=== PATIENT | female | born 1950 | race Caucasian/White ===

== ENCOUNTER → 2016-09-19 | Outpatient (CLI) | payer BC, OTHER ==
[~2016-09-19] MED LIST: AMLO-114 PO; ATOR-24 PO; CITA20TA9 PO; GLIP5TAB11 PO; LBT/100 PO; LEVO125T72 PO; LORA-741 PO; LOSA1TAB PO; METF1000 PO; PROB1TAB16 PO; PROP20TA67 PO; SIMV40TA4 PO; VNTHFA/IN INH
[2016-09-19 13:33] LABS: ESTIMATED AVERAGE GLUCOSE 154 mg/dl; HA1C FLAG Normal (Normal)
[2016-09-19 14:17] LABS: BLOOD UREA NITROGEN 26 mg/dl (7-18); CALCIUM 9.9 mg/dl (8.5-10.1); CARBON DIOXIDE 25 mmol/L (21-32); CHLORIDE 104 mmol/L (98-107); GLUCOSE 153 mg/dl (70-99); POTASSIUM 4.5 mmol/L (3.5-5.1); SODIUM 139 mmol/L (136-145)
[2016-09-19 14:27] LABS: CHOLESTEROL 144 mg/dl (0-200); CHOLESTEROL/HDL RATIO 2.8; HDL CHOLESTEROL 52 mg/dl; TRIGLYCERIDES 132 mg/dl (0-150); VERY LOW DENSITY LIPOPROT CALC 26 mg/dl
== END | disposition home or self-care (01) ==
LOC: C.LABSPEC 12:24
PROVIDERS: ATTEND Internal Medicine
DX: Z00.00 Encounter for general adult medical examination without abnormal findings (principal); E11.9 Type 2 diabetes mellitus without complications; I10 Essential (primary) hypertension; E03.9 Hypothyroidism, unspecified

== ENCOUNTER → 2017-01-27 | Outpatient (CLI) | payer BC ==
[~2017-01-27] MED LIST changes: +LPT40 PO
[2017-01-27 14:10] LABS: ESTIMATED AVERAGE GLUCOSE 163 mg/dl; HA1C FLAG Normal (Normal)
[2017-01-27 14:21] LABS: BLOOD UREA NITROGEN 19 mg/dl (7-18); CARBON DIOXIDE 27 mmol/L (21-32); CHLORIDE 102 mmol/L (98-107); CHOLESTEROL 188 mg/dl (0-200); GLUCOSE 160 mg/dl (70-99); POTASSIUM 4.3 mmol/L (3.5-5.1); SODIUM 137 mmol/L (136-145); TRIGLYCERIDES 334 mg/dl (0-150); VERY LOW DENSITY LIPOPROT CALC 67 mg/dl
[2017-01-27 14:31] LABS: CHOLESTEROL/HDL RATIO 4.9; HDL CHOLESTEROL 38 mg/dl
== END | disposition home or self-care (01) ==
LOC: C.LABSPEC 12:25
PROVIDERS: ATTEND Internal Medicine
DX: Z00.00 Encounter for general adult medical examination without abnormal findings (principal); E11.9 Type 2 diabetes mellitus without complications; I10 Essential (primary) hypertension; E78.5 Hyperlipidemia, unspecified

== ENCOUNTER → 2017-01-30 | Outpatient (CLI) | payer BC ==
--- NOTE | 2017-02-07 06:39 | CODING QUERY MEDICAL NECESSITY ---
CQSUPPORTING DIAGNOSIS NEEDED A supporting diagnosis is required for the test/procedure performed on this patient in order for us to be reimbursed by the patient's insurance. Please provide a supporting diagnosis for the following test/procedure listed below next to the test name along with your signature. *If there is no additional diagnosis for this patient that would support the following test/procedure please document that below next to the test/procedure. Test(s)/Procedure(s) that require a supporting diagnosis: NAMITA 01/30/17 URINE CULTURE Provider Signature: Date: Thank you Abbie Neumann [facility] Information Management Once completed, please kindly fax back to [phone] For questions please call [phone]
== END | disposition home or self-care (01) ==
LOC: C.LABSPEC 17:46
PROVIDERS: ATTEND Internal Medicine
DX: N39.0 Urinary tract infection, site not specified (principal); N39.9 Disorder of urinary system, unspecified

== ENCOUNTER → 2017-05-23 | Day surgery (SDC) | payer BC ==
[2017-05-08 15:38] VITALS: Ht 160 cm; Wt 86.4 kg
[~2017-05-23] VITALS: Ht 160 cm; Wt 86.4 kg
[~2017-05-23] MED LIST changes: -ATOR-24 PO; -LPT40 PO; -PROP20TA67 PO; +PROPOFOL IV EMULSION 10 MG/ML 20 ML VIAL IV ONE
--- NOTE | 2017-05-23 13:10 | Endo History and Physical ---
History & Physical Date of Service: May 23, 2017. Chief Complaint: Screening Referring Physician: Dr. Aide Pike History of Present Illness For colonoscopy Past Surgical History Hx Cardiac Surgery: No Hx Internal Defibrillator: No Hx Pacemaker: No Hx Abdominal Surgery: Yes ( X2, UMBILICAL HERNIA REPAIR) Hx of Implantable Prosthesis: No Hx Post-Op Nausea and Vomiting: No Hx Cancer Surgery: No Hx Thoracic Surgery: No Hx Orthopedic: No Hx Urinary Tract Surgery: No Family History None Social History Smoking Status: Former Smoker Hx Substance Use: No Hx Alcohol Use: Yes (OCCASIONAL) Allergies Coded Allergies: Nifedipine (Verified Allergy, Unknown, TACHYCARDIA, 05/08/17) Oxycodone (Verified Adverse Reaction, Mild, VOMITING, 05/08/17) Current Medications Reported Home Medications Medications Dose Route/Sig Max Daily Dose Days Date Category Probiotic (Probiotic Product) 1 Tab Tab 1 Tab PO QAM 05/08/17 Reported Ativan (Lorazepam) 0.5 Mg Tab 0.5 Mg PO TID PRN 05/08/17 Reported Zocor (Simvastatin) 40 Mg Tab 40 Mg PO HS 05/08/17 Reported Normodyne (Labetalol Hcl) 100 Mg Tab 100 Mg PO BID 05/08/17 Reported Cozaar (Losartan Potassium) 25 Mg Tab 25 Mg PO QPM 03/27/15 Reported Glucotrol (Glipizide) 5 Mg Tab 0.5 Tab PO QPM 03/27/15 Reported Synthroid (Levothyroxine Sodium) 125 Mcg Tab 125 Mcg PO QAM 03/27/15 Reported Glucophage (Metformin Hcl) 1,000 Mg Tab 1,000 Mg PO QAM 03/27/15 Reported Ventolin Hfa (Albuterol) 200 Puffs/39130 Mcg Aers 1-2 Puff INH QID PRN 09/16/12 Reported Celexa (Citalopram Hydrobromide) 20 Mg Tab 20 Mg PO HS 09/04/12 Reported Norvasc (Amlodipine Besylate) 10 Mg Tab 10 Mg PO HS 06/30/07 Reported Vital Signs Weight (Kilograms): 86.36 Height (Feet): 5 Height (Inches): 3 Date Time Temp Pulse Resp B/P (MAP) Pulse Ox O2 Delivery O2 Flow Rate FiO2 05/23/17 12:44 36.9 77 16 183/97 (125) 95 Room Air Physical Exam General Appearance: WD/WN Respiratory/Chest: Respiratory effort: no dyspnea Cardiovascular: Heart Auscultation: RRR Abdomen: Inspection & Palpation: soft Assessment and Plan Fam hx polyps for colonoscopy
--- NOTE | 2017-05-23 13:42 | Discharge Instructions ---
Endoscopy Patient Instructions Date / Procedure(s) Performed May 23, 2017. Colonoscopy Allergy Information Coded Allergies: Nifedipine (Verified Allergy, Unknown, TACHYCARDIA, 05/08/17) Oxycodone (Verified Adverse Reaction, Mild, VOMITING, 05/08/17) Discharge Date / Findings May 23, 2017. polyps, diverticulosis Medication Instructions Stopped Medication(s): Patient was told to stop taking her metformin. Restart Stopped Medication(s): resume meds Reported Home Medications Medications Dose Route/Sig Max Daily Dose Days Date Category Probiotic (Probiotic Product) 1 Tab Tab 1 Tab PO QAM 05/08/17 Reported Ativan (Lorazepam) 0.5 Mg Tab 0.5 Mg PO TID PRN 05/08/17 Reported Zocor (Simvastatin) 40 Mg Tab 40 Mg PO HS 05/08/17 Reported Normodyne (Labetalol Hcl) 100 Mg Tab 100 Mg PO BID 05/08/17 Reported Cozaar (Losartan Potassium) 25 Mg Tab 25 Mg PO QPM 03/27/15 Reported Glucotrol (Glipizide) 5 Mg Tab 0.5 Tab PO QPM 03/27/15 Reported Synthroid (Levothyroxine Sodium) 125 Mcg Tab 125 Mcg PO QAM 03/27/15 Reported Glucophage (Metformin Hcl) 1,000 Mg Tab 1,000 Mg PO QAM 03/27/15 Reported Ventolin Hfa (Albuterol) 200 Puffs/20137 Mcg Aers 1-2 Puff INH QID PRN 09/16/12 Reported Celexa (Citalopram Hydrobromide) 20 Mg Tab 20 Mg PO HS 09/04/12 Reported Norvasc (Amlodipine Besylate) 10 Mg Tab 10 Mg PO HS 06/30/07 Reported Provider Instructions Activity Restrictions - No exercising or heavy lifting for 24 hours. - Do not drink alcohol the day of the procedure. - Do not drive a car or operate machinery until the day after the procedure. - Do not make any important decisions or sign important papers in 24 hours after the procedure. Following Day: - Return to full activity which may include returning to work/school. Diet Start your diet with liquids and light foods (jello, soup, juice, toast). Then eat your usual diet if not nauseated. Treatment For Common After Affects For mild abdominal pain, bloating, or excessive gas: - Rest - Eat lightly - Lie on right side Follow-Up Information Follow-up with Dr. Aide Pike as scheduled Anesthesia Information What You Should Know You have had a procedure that required some medicine to reduce anxiety and discomfort. This treatment is called moderate sedation. After receiving the treatment, you may be sleepy, but you will be able to breathe on your own. The effects of the treatment may last for several hours. Follow these instructions along with Activity/Diet recommendations noted above: * Do NOT do anything where dizziness or clumsiness would be dangerous. * Rest quietly at home today, then you can be up and about tomorrow. * Have a responsible person stay with you the rest of today. * You may have had an I.V. today. If so, you may take the dressing off later today. Recommendations Call your doctor if: * Trouble breathing * Continuous vomiting for more than 24 hours * Temperature above 101 degrees * Severe abdominal pain or bloating * Pain not relieved by pain medicine ordered * There is increased drainage or redness from any incision * A large amount of rectal bleeding greater than 2-3 tablespoons. (If you had a polyp/s removed or have hemorrhoids, a small amount of blood - from the rectum is to be expected.) * You have any unanswered questions or concerns. IN THE EVENT OF A SERIOUS EMERGENCY, GO TO THE NEAREST EMERGENCY ROOM Your discharge instructions were prepared by provider Junior Slaughter. Patient Instructions Signature Page Emma Coon Patient (or Guardian) Signature/Date: I have read and understand the instructions given to me by my caregivers. Caregiver/RN/Doctor Signature/Date: The above-named patient and/or guardian has received patient instructions on this date. + Original Patient Signature Page (only) stays with chart. Please make copy for patient.
--- NOTE | 2017-05-23 13:46 | GI REPORT ---
Procedure Date: 05/23/2017 1:21 PM Procedure: Colonoscopy Indications: Family history of colonic polyps in a first-degree relative Medicines: Propofol total dose 300 mg IV Complications: No immediate complications. Estimated Blood Loss: Estimated blood loss was minimal. Procedure: Pre-Anesthesia Assessment: - Prior to the procedure, a History and Physical was performed, and patient medications, allergies and sensitivities were reviewed. The patient's tolerance of previous anesthesia was reviewed. - The risks and benefits of the procedure and the sedation options and risks were discussed with the patient. All questions were answered and informed consent was obtained. After I obtained informed consent, the scope was passed under direct vision. Throughout the procedure, the patient's blood pressure, pulse, and oxygen saturations were monitored continuously. The scope was introduced through the anus and advanced to the cecum, identified by appendiceal orifice and ileocecal valve. The colonoscopy was performed without difficulty. The patient tolerated the procedure well. The quality of the bowel preparation was excellent. Findings: A 3 mm polyp was found in the cecum. The polyp was sessile. The polyp was removed with a cold biopsy forceps. Resection and retrieval were complete. Estimated blood loss was minimal. A 7 mm polyp was found at the hepatic flexure. The polyp was pedunculated. The polyp was removed with a hot snare. Resection and retrieval were complete. Estimated blood loss: none. A few diverticula were found in the sigmoid colon. Impression: - One 3 mm polyp in the cecum, removed with a cold biopsy forceps. Resected and retrieved. - One 7 mm polyp at the hepatic flexure, removed with a hot snare. Resected and retrieved. - Diverticulosis in the sigmoid colon. Recommendation: - Discharge patient to home (ambulatory). - Continue present medications. - Await pathology results. - Return to primary care physician PRN. Junior Slaughter M.D. Junior Slaughter MD 05/23/2017 1:45:35 PM This report has been signed electronically. Note Initiated On: 05/23/2017 1:21 PM I attest to the content of the Intraoperative Record and orders documented therein, exceptions below
--- NOTE | 2017-05-23 14:00 | Anesthesiology Progress Note ---
Anesthesia Post Op Note Date & Time May 23, 2017 at 14:00 Vital Signs Pain Intensity: 0 Vital Signs Past 12 Hours Date Time Temp Pulse Resp B/P (MAP) Pulse Ox O2 Delivery O2 Flow Rate FiO2 05/23/17 13:46 60 16 135/71 (92) 96 Room Air 05/23/17 12:44 36.9 77 16 183/97 (125) 95 Room Air Notes Mental Status: alert / awake / arousable, participated in evaluation Pt Amnestic to Procedure: Yes Nausea / Vomiting: adequately controlled Pain: adequately controlled Airway Patency, RR, SpO2: stable & adequate BP & HR: stable & adequate Hydration State: stable & adequate Anesthetic Complications: no major complications apparent
[2017-05-23 14:16] VITALS: BP 155/84; PULSE 65; O2SAT 95
== END | disposition home or self-care (01) ==
LOC: C.GI 12:09
PROVIDERS: ATTEND Internal Medicine Gastroenterology
DX: Z12.11 Encounter for screening for malignant neoplasm of colon (principal); D12.0 Benign neoplasm of cecum; D12.3 Benign neoplasm of transverse colon; J45.909 Unspecified asthma, uncomplicated; E11.9 Type 2 diabetes mellitus without complications; I10 Essential (primary) hypertension; E78.5 Hyperlipidemia, unspecified; Z87.891 Personal history of nicotine dependence; Z83.71 Family history of colonic polyps

== ENCOUNTER → 2017-05-29 | Outpatient (CLI) | payer BC ==
[~2017-05-29] MED LIST changes: -PROPOFOL IV EMULSION 10 MG/ML 20 ML VIAL IV ONE
[2017-05-29 13:29] LABS: ALT/SGPT 30 U/L (12-78); AST/SGOT 20 U/L (15-37); BLOOD UREA NITROGEN 16 mg/dl (7-18); BUN/CREATININE RATIO 14.6 (10-20); CALCIUM 9.6 mg/dl (8.5-10.1); CARBON DIOXIDE 28 mmol/L (21-32); CHLORIDE 105 mmol/L (98-107); ESTIMATED AVERAGE GLUCOSE 157 mg/dl; GLUCOSE 136 mg/dl (70-99); HA1C FLAG Normal (Normal); POTASSIUM 4.7 mmol/L (3.5-5.1); SODIUM 138 mmol/L (136-145)
[2017-05-29 13:38] LABS: ALB/GLOB RATIO 1.1 (0.9-2); ALKALINE PHOSPHATASE 96 U/L (45-117); CHOLESTEROL 139 mg/dl (0-200); CHOLESTEROL/HDL RATIO 3.6; HDL CHOLESTEROL 39 mg/dl; TRIGLYCERIDES 183 mg/dl (0-150); VERY LOW DENSITY LIPOPROT CALC 37 mg/dl
== END | disposition home or self-care (01) ==
LOC: C.LABSPEC 12:31
PROVIDERS: ATTEND Internal Medicine
DX: E11.9 Type 2 diabetes mellitus without complications (principal); E03.9 Hypothyroidism, unspecified; E78.5 Hyperlipidemia, unspecified

== ENCOUNTER → 2017-06-25 | Outpatient (CLI) | payer BC ==
--- NOTE | 2017-06-26 07:47 | MAMMOGRAPHY REPORT ---
BILATERAL DIGITAL SCREENING MAMMOGRAM TOMOSYNTHESIS WITH CAD: 06/25/2017 CLINICAL HISTORY: Routine screening. Patient has no complaints. TECHNIQUE: Breast tomosynthesis in addition to standard 2D mammography was performed. Current study was also evaluated with a Computer Aided Detection (CAD) system. COMPARISON: Comparison is made to exams dated: 06/18/2016 mammogram, 06/16/2015 mammogram, 05/23/2014 mammogram, 05/03/2013 mammogram, 04/27/2012 mammogram, and 04/24/2011 mammogram - [facility]. BREAST COMPOSITION: The tissue of both breasts is almost entirely fatty. FINDINGS: The parenchymal pattern is unchanged. No developing mass, architectural distortion or clus ter of suspicious microcalcifications is seen in either breast. IMPRESSION: ACR BI-RADS CATEGORY 2: BENIGN There is no mammographic evidence of malignancy. A 1 year screening mammogram is recommended. The pa tient will receive written notification of the results. Approximately 10% of breast cancers are not detected with mammography. A negative mammographic report should not delay biopsy if a clinically suggestive mass is present. Valorie Osei M.D. ay/:06/25/2017 07:37:48 [employer]urb[employer] Installer: Angely Perez, [facility] letter sent: Normal 1/2 BI-RADS Code: ACR BI-RADS Category 2: Benign
== END | disposition home or self-care (01) ==
LOC: C.MAMM 07:07
PROVIDERS: ATTEND Obstetrics & Gynecology
DX: Z12.31 Encounter for screening mammogram for malignant neoplasm of breast (principal)

== ENCOUNTER 2017-08-05 19:52 | Inpatient (IN) | payer BC, OTHER ==
[~2017-08-05] VITALS: Ht 160 cm; Wt 87.5 kg
[2017-08-05] MEDS ORDERED: LORAZEPAM 1 MG TAB SL STA (20:22)
[2017-08-05] MEDS ORDERED: ASPIRIN 324 MG CHEW PO STA (20:22)
[2017-08-05] MEDS ORDERED: NITROGLYCERIN 0.4 MG SL PER TAB CHARGE SL STA (20:22)
[2017-08-05 20:33] LABS: BASO % 0.1 %; BASO ABS # 0.01 K/uL (0-0.2); COMPLETE YES; HEMATOCRIT 40.1 % (37-47); IG% 0.2 %; LYMPH % 22.6 %; LYMPH ABS # 2.03 K/uL (1.2-3.4); MEAN CORPUSCULAR HEMOGLOBIN 32.5 pg (25-34); MEAN CORPUSCULAR HGB CONC 34.9 g/dl (32-36); MEAN PLATELET VOLUME 9.6 fL (7.4-10.4); MONO % 8.6 %; NEUT % 66.5 %; PLATELET COUNT 310 K/uL (130-400); RED BLOOD COUNT 4.31 M/uL (4.2-5.4); WHITE BLOOD COUNT 8.98 K/uL (4.8-10.8)
[2017-08-05 20:40] LABS: ALT/SGPT 30 U/L (12-78); BLOOD UREA NITROGEN 21 mg/dl (7-18); BUN/CREATININE RATIO 20.6 (10-20); CALCIUM 9.6 mg/dl (8.5-10.1); CARBON DIOXIDE 23 mmol/L (21-32); CHLORIDE 102 mmol/L (98-107); CREATININE 1.04 mg/dl (0.60-1.20); GLUCOSE 138 mg/dl (70-99); POTASSIUM 3.9 mmol/L (3.5-5.1); SODIUM 135 mmol/L (136-145)
[2017-08-05 20:42] LABS: PARTIAL THROMBOPLASTIN RATIO 1.1; PROTHROMBIN TIME (PATIENT) 10.7 SECONDS (9.0-12.0)
[2017-08-05 20:45] LABS: ALKALINE PHOSPHATASE 99 U/L (45-117); AST/SGOT 23 U/L (15-37)
--- NOTE | 2017-08-05 21:12 | DIAGNOSTIC IMAGING REPORT ---
CHEST ONE VIEW PORTABLE CLINICAL HISTORY: CHEST PAIN dyspnea COMPARISON STUDY: 09/04/2012 FINDINGS: The bones soft tissues and hemidiaphragms are normal. The cardiomediastinal silhouette is normal. The lungs are clear. The pulmonary vasculature is normal. IMPRESSION: Negative chest. The above report was generated using voice recognition software. It may contain grammatical, syntax or spelling errors. Electronically signed by: Silas Soares M.D. 08/05/2017 9:11 PM Dictated Date/Time: 08/05/2017 9:10 PM
[2017-08-05] MEDS ORDERED: LPT40 PO (21:15)
[2017-08-05] MEDS ORDERED: ACETAMINOPHEN 325 MG TAB PO PRN (22:45)
[2017-08-05] MEDS ORDERED: HydrALAZINE HCL 20 MG/ML VIAL IV. PRN (23:00)
[2017-08-05 23:21] LABS: MAGNESIUM 1.8 mg/dl (1.8-2.4)
[2017-08-05 23:25] VITALS: BP 185/80; PULSE 44; TEMP 37; Ht 160 cm; Wt 87.5 kg
--- NOTE | 2017-08-05 23:40 | History and Physical ---
History & Physical Date of Service Aug 05, 2017. History & Physical ADMISSION DATE : 08/05/2017 CHIEF COMPLAINT : 66-year-old female admitted with recurrent shortness of breath and evidence of second-degree AV block Mobitz 2 PRESENT ILLNESS : Patient without any prior cardiac history. She is treated for arterial hypertension, hyperlipidemia, type 2 diabetes, anxiety and depression. On Friday 2 days ago she was at [employer] and she walked from the parking lot to the store and she was feeling short of breath. The episode was short lasting. She denied any associated chest pain. No diaphoresis. No nausea no vomiting. Since then she had multiple episodes. Yesterday she became dyspneic when she climbed up steps. That was unusual for her. She does exercise regularly. This evening she was feeling short of breath. She felt that her heart rate was beating slow in the 40s. She called her daughter who is a nurse and she told her to come to the emergency room. She was brought in. She was evaluated. Multiple tests were done. Her electrocardiogram is showing evidence of second- degree AV block type II. She is on labetalol. She has been on the same medication addition to other medications to control her blood pressure for a long time. There has been no recent change in her medications. I saw the patient in the emergency room. She is currently stable. Her vitals are stable. Her heart rate is now in the 50s. She is being admitted to PCU with telemetry. PAST MEDICAL HISTORY : * Arterial hypertension. Long-standing. Requiring a multidrug regimen for control * Type 2 diabetes mellitus. On oral hypoglycemic agents * Hyperlipidemia. Treated. * Anxiety and depression. * 2 C-sections 36 and 39 years ago * Umbilical hernia repair on 2 separate occasions the last one was in 2012 * Recurrent episodes of swelling in her throat mostly with any type of infection. Has required steroid courses in the past for this problem. * Hypothyroidism. Compensated. SOCIAL HISTORY : She is . Has 2 children. She only smoked in her late teens. Early 20s. None since then. Rare alcoholic drink. 3-4 cups of coffee per day. She is retired. 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 FAMILY HISTORY : Her father at age 84. He had cardiac surgery for valve replacement and bypass and he developed complications after that with infections. Her mother is 88. Has Parkinson's disease. One sister alive and well. Children are doing well. ALLERGIES : Nifedipine. Mostly with swelling in her legs. Percocet. Mostly intolerance with vomiting CURRENT MEDICATIONS : As noted on her home medication lists REVIEW OF SYSTEMS : She denied any headache. No dizziness at this point. She did feel lightheaded prior to that. No change in her vision. No earaches or throat or neck pain. He denied any chest pain. Dyspneic intermittently since Friday. No nausea no vomiting. No problem with her bowel movements. No problem urinating. No pain in her back or extremities. PHYSICAL EXAMINATION : General: Well-developed. No distress. Resting comfortably. Recorded weight is 89.1 kg height 160 cm BMI 34.8 Skin is warm and dry. No rash. HEENT no mucosal abnormalities. Vital signs on arrival to the emergency room her blood pressure was 221/91, pulse 57, respiration 20, temperature 36.9, oxygen saturation 97% on room air. Neck is supple without lymph node or thyroid enlargement. No JVD. No Juan Ramon pulses. No bruit. Heart irregular heart sounds intermittently. No murmur rub or gallop. Lungs are clear. No wheezing no rhonchi. Abdomen is soft nontender without organomegaly or masses. Back no spinal tenderness Extremities no edema clubbing or cyanosis. No joint or muscle tenderness. Absent right dorsalis pedis pulse. Neurological examination she is alert and oriented without any deficit LABORATORY TESTS : WBC count 8980, hemoglobin 14, hematocrit 40.1, platelet count 310,000. Sodium 135, potassium 3.9, CO2 23, chloride 102, BUNs 21, creatinine 1.04, glucose 138 , calcium 9.6, magnesium 1.8, total bilirubin 0.4, AST 23, AST 30, alkaline phosphatase 99, troponin I less than 0.015, proBNP 210, total protein 8.7, albumin 4.5, TSH 6.050, free T4 1 0.1. Chest x-ray showed no acute changes Electrocardiogram showed evidence of second-degree AV block type II. She also has a new right bundle branch block compared to prior electrocardiograms. New T -wave abnormalities were also noted. ASSESSMENT : * Second-degree AV block type II * New right bundle branch block * Arterial hypertension * Hyperlipidemia * Hypothyroidism. Her TSH is elevated tonight. The last time her TSH was checked on 05/29/2017 it was 1.830 * Type 2 diabetes mellitus * Anxiety and depression PLAN : At this time her condition is stable. She is completely asymptomatic. She is admitted to PCU with telemetry. Resuscitation level I. All her laboratory tests were ordered. Cardiac isoenzymes and serial electrocardiograms were ordered. An echocardiogram was ordered. I discontinued her labetalol. Her blood pressure has been difficult to control in the past required multiple medications and will see how she does off the labetalol and decide on addition of other medications. All her other medications were continued. I would also increase her levothyroxine Cardiology consultation was requested. The plan at this time is to wait for the rest of her cardiac isoenzymes, monitor her rhythm and rate, see how she does off the labetalol, complete her workup. She will need a stress test.
--- NOTE | 2017-08-05 23:53 | EMERGENCY ROOM VISIT NOTE ---
History Report prepared by Archana: Elaine Pittman Under the Supervision of: Dr. Shantanu Krishnamurthy M.D. First contact with patient: 20:01 Chief Complaint: SHORTNESS OF BREATH Stated Complaint: SOB,HR 30S,LIGHTHEADED Nursing Triage Summary: Patient presents with c/o shortness of breath when walking upstairs, high blood pressure, and low heart rate that started on Friday. She notes that she was lightheaded with shortness of breath. States that symptoms have worsened today. Denies chest pain, palpitations, nausea, vomiting, swelling in extremities History of Present Illness The patient is a 66 year old white female with a past medical history of Diabetes and Hypertension who presents to the ED with a cc of an episode of shortness of breath beginning prior to arrival. The patient states that she is fairly active and recently lost weight. She reports that she noticed she became short of breath going up half a flight of stairs this evening. The patient reports that this is abnormal for her. She states that this feels similar to her panic attacks. Positive low heart rate, . She notes that her heart race was as low as being in the 30s two days ago. Negative chest pain, swelling in her legs, cough, fever, chills, abnormal eating/drinking habits, urinary symptoms, melena, hematochezia, diarrhea, and being short of breath when she is resting. The patient notes that she did not take her beta nell, Losartan, and Lipoxide this evening. Source of History: patient Onset: prior to arrival Position: other (global) Quality: other (global) Timing: other (episode) Modifying Factors (Worsening): movement Associated Symptoms: No fevers, No chills, No cough, No chest pain, No melena, No hematochezia, No diarrhea, No urinary symptoms Note: The patient complains of her heart rate being low. The patient denies swelling in legs, abnormal eating/drinking habits, and being short of breath at rest. Review of Systems See HPI for pertinent positives and negatives. A total of ten systems were reviewed and were otherwise negative. Past Medical & Surgical Medical Problems: (1) SECOND DEGREE AV BLOCK,HTN,DM2 Surgical Problems: (1) Hx of section Family History Diabetes mellitus Heart disease Hypertension Social History Smoking Status: Former Smoker Alcohol Use: occasionally Marital Status: Housing Status: lives with family Occupation Status: unemployed Current/Historical Medications Scheduled Amlodipine (Norvasc), 10 MG PO HS Atorvastatin (Atorvastatin Calcium), 40 MG PO DAILY Citalopram Hydrobromide (Celexa), 20 MG PO HS Glipizide (Glucotrol), 0.5 TAB PO QPM Labetalol Hcl (Normodyne), 100 MG PO BID Levothyroxine Sodium (Synthroid), 125 MCG PO QAM Losartan Potassium (Cozaar), 25 MG PO QPM Metformin Hcl (Glucophage), 1,000 MG PO QAM Probiotic Product (Probiotic), 1 TAB PO QAM Scheduled PRN Albuterol Hfa (Ventolin Hfa), 1-2 PUFF INH QID PRN for SOB/Wheezing Lorazepam (Ativan), 0.5 MG PO HS PRN for Anxiety Allergies Coded Allergies: Nifedipine (Verified Allergy, Unknown, TACHYCARDIA, 08/05/17) Oxycodone (Verified Adverse Reaction, Mild, VOMITING, 08/05/17) Physical Exam Vital Signs Date Time Temp Pulse Resp B/P (MAP) Pulse Ox O2 Delivery O2 Flow Rate FiO2 08/05/17 22:24 53 16 156/67 96 Room Air 08/05/17 21:35 47 18 140/65 95 Room Air 08/05/17 20:42 40 18 175/74 97 Room Air 08/05/17 20:37 48 08/05/17 20:06 98 Room Air 08/05/17 20:04 69 20 189/86 98 Room Air 08/05/17 19:59 96 Room Air 08/05/17 19:53 36.9 57 20 221/91 97 Room Air Physical Exam GENERAL: Awake, alert, well-appearing, NAD HENT: Normocephalic, atraumatic. EYES: Normal conjunctiva. Sclera non-icteric. NECK: Supple. No nuchal rigidity. FROM. RESPIRATORY: CTAB, no rhonchi, wheezing, crackles CARDIAC: Has 2 beats and a pause followed by another 2 beats and a pause, no MRG ABDOMEN: Soft, NTND, BS+ MSK: No chest wall TTP, no LE edema NEURO: GCS 15, CN 2-12 intact, moves all 4s on command SKIN: No rash or jaundice noted. Medical Decision & Procedures ER Provider Diagnostic Interpretation: Radiology results as stated below per my review and radiologist interpretation: CHEST ONE VIEW PORTABLE CLINICAL HISTORY: CHEST PAIN dyspnea COMPARISON STUDY: 09/04/2012 FINDINGS: The bones soft tissues and hemidiaphragms are normal. The cardiomediastinal silhouette is normal. The lungs are clear. The pulmonary vasculature is normal. IMPRESSION: Negative chest. The above report was generated using voice recognition software. It may contain grammatical, syntax or spelling errors. Electronically signed by: Silas Soares M.D. 08/05/2017 9:11 PM Dictated Date/Time: 08/05/2017 9:10 PM Laboratory Results 08/05/17 20:06 Red Blood Count 4.31, Mean Corpuscular Volume 93.0, Mean Corpuscular Hemoglobin 32.5, Mean Corpuscular Hemoglobin Concent 34.9, Mean Platelet Volume 9.6, Neutrophils (%) (Auto) 66.5, Lymphocytes (%) (Auto) 22.6, Monocytes (%) (Auto) 8.6, Eosinophils (%) (Auto) 2.0, Basophils (%) (Auto) 0.1, Neutrophils # (Auto) 5.97, Lymphocytes # (Auto) 2.03, Monocytes # (Auto) 0.77, Eosinophils # (Auto) 0.18, Basophils # (Auto) 0.01 08/05/17 20:06 Test 08/05/17 20:06 White Blood Count 8.98 K/uL (4.8-10.8) Red Blood Count 4.31 M/uL (4.2-5.4) Hemoglobin 14.0 g/dL (12.0-16.0) Hematocrit 40.1 % (37-47) Mean Corpuscular Volume 93.0 fL (80-100) Mean Corpuscular Hemoglobin 32.5 pg (25-34) Mean Corpuscular Hemoglobin Concent 34.9 g/dl (32-36) Platelet Count 310 K/uL (130-400) Mean Platelet Volume 9.6 fL (7.4-10.4) Neutrophils (%) (Auto) 66.5 % Lymphocytes (%) (Auto) 22.6 % Monocytes (%) (Auto) 8.6 % Eosinophils (%) (Auto) 2.0 % Basophils (%) (Auto) 0.1 % Neutrophils # (Auto) 5.97 K/uL (1.4-6.5) Lymphocytes # (Auto) 2.03 K/uL (1.2-3.4) Monocytes # (Auto) 0.77 K/uL (0.11-0.59) Eosinophils # (Auto) 0.18 K/uL (0-0.5) Basophils # (Auto) 0.01 K/uL (0-0.2) RDW Standard Deviation 44.8 fL (36.4-46.3) RDW Coefficient of Variation 13.1 % (11.5-14.5) Immature Granulocyte % (Auto) 0.2 % Immature Granulocyte # (Auto) 0.02 K/uL (0.00-0.02) Prothrombin Time 10.7 SECONDS (9.0-12.0) Prothromb Time International Ratio 1.0 (0.9-1.1) Activated Partial Thromboplast Time 28.3 SECONDS (21.0-31.0) Partial Thromboplastin Ratio 1.1 Anion Gap 10.0 mmol/L (3-11) Est Creatinine Clear Calc Drug Dose 57.1 ml/min Estimated GFR () 65.3 Estimated GFR (Non- 56.3 BUN/Creatinine Ratio 20.6 (10-20) Calcium Level 9.6 mg/dl (8.5-10.1) Magnesium Level 1.8 mg/dl (1.8-2.4) Total Bilirubin 0.4 mg/dl (0.2-1) Direct Bilirubin < 0.1 mg/dl (0-0.2) Aspartate Amino Transf (AST/SGOT) 23 U/L (15-37) Alanine Aminotransferase (ALT/SGPT) 30 U/L (12-78) Alkaline Phosphatase 99 U/L (45-117) Troponin I < 0.015 ng/ml (0-0.045) Pro-B-Type Natriuretic Peptide 210 pg/ml (0-900) Total Protein 8.7 gm/dl (6.4-8.2) Albumin 4.5 gm/dl (3.4-5.0) Lipase 191 U/L (73-393) Thyroid Stimulating Hormone (TSH) 6.050 uIu/ml (0.300-4.500) Free Thyroxine 1.10 ng/dl (0.80-1.60) Laboratory results reviewed by me Medications Administered Medications (Trade) Dose Ordered Sig/Tino Route Start Time Stop Time Status Last Admin Dose Admin Nitroglycerin (Nitrostat Tab) 0.4 mg NOW STAT SL 08/05/17 20:22 08/05/17 20:25 DC 08/05/17 20:42 0.4 MG Aspirin (Aspirin Chew) 324 mg NOW STAT PO 08/05/17 20:22 08/05/17 20:25 DC 08/05/17 20:43 324 MG ECG Indication: SOB/dyspnea Rate (beats per minute): 67 Rhythm: sinus rhythm Findings: PAC (bigemini ), RBBB (wide QRS), T-wave inversion (Anterior, Inferior), other (no other STS or TWI) Comparison ECG Date: March Change: QRS is new, TWI some are new and some are old, RBBB is new, bigemini is new ED Course 2014: The patient was evaluated in room C7. A complete history and physical exam was performed. 2150: Discussed the patient's case with Dr. Aide Pike. The patient will be evaluated for further treatment and disposition. Medical Decision The patient is a 66 year old white female with a past medical history of Diabetes and Hypertension who presents to the ED with a cc of an episode of shortness of breath beginning prior to arrival. Etiologies such as infections, reactive airway disease, pneumonia, pneumothorax , COPD, CHF, cardiac ischemia, pulmonary embolism, musculoskeletal, gastrointestinal, as well as others were entertained. Patient was seen and evaluated the bedside. Patient states that she's had some exertional dyspnea. This is new. She states that she get short of breath when she walks up 1 flight of stairs. Typically she has no problem walking up flights of stairs at all. Patient denies any recent prolonged car or plane travel or history of DVT or PE. Patient is not a smoker. Patient denies any chest pain. Patient does have a history of hypertension for which takes medications. She also does have a history of hypo-thyroidism which she takes Synthroid for. She has had no recent changes in his medicines. Patient states that she noticed that her heart rate was low did not take her labetalol today. Patient did have blood work that was completed along with EKG and chest x-ray. Patient was also given a nitroglycerin. Patient did take an Ativan prior as she thought maybe some anxiety played a role in her symptoms. She chest x-ray was clear. Patient had negative troponin and BNP. Patient's EKG did show a new right bundle branch block and some T-wave inversions anterior laterally. Some of these T-wave inversions were new. Patient again denied any chest pain. Patient was given a full dose aspirin as well as nitroglycerin. I did discuss case with the admitting physician who stated ability of the EKG this very well may be secondary type II AV block. The patient is currently asymptomatic. Patient was admitted for further cardiac workup. Medication Reconcilliation Current Medication List: was personally reviewed by me Blood Pressure Screening Patient's blood pressure: Elevated blood pressure Will be further monitored by hospitalist. Consults Time Called: 2106 Consulting Physician: Dr. Aide Pike Returned Call: [phone] Discussed the patient's case with Dr. Aide Pike. The patient will be evaluated for further treatment and disposition. Impression Primary Impression: Exertional dyspnea Additional Impression: RBBB Scribe Attestation The scribe's documentation has been prepared under my direction and personally reviewed by me in its entirety. I confirm that the note above accurately reflects all work, treatment, procedures, and medical decision making performed by me. Departure Information Dispostion Being Evaluated By Hospitalist Referrals Yariel Hess M.D. (PCP) Patient Instructions My [facility] Problem Qualifiers
[2017-08-06 00:39] LABS: CKMB/CK RATIO 1.5 (0-3.0)
[2017-08-06] MEDS: LORAZEPAM 0.5 MG TAB PO PRN ×2 (00:59→23:56)
[2017-08-06 04:15] VITALS: BP 158/77; PULSE 51; TEMP 36.8; O2SAT 95
[2017-08-06] MEDS: LEVOTHYROXINE 125 MCG TAB PO SCH (05:46)
[2017-08-06 06:13] LABS: BASO % 0.3 %; BASO ABS # 0.02 K/uL (0-0.2); COMPLETE YES; EOS % 1.7 %; HEMATOCRIT 39.3 % (37-47); IG% 0.3 %; LYMPH % 24.1 %; LYMPH ABS # 1.66 K/uL (1.2-3.4); MEAN CELL VOLUME 93.1 fL (80-100); MEAN CORPUSCULAR HEMOGLOBIN 31.5 pg (25-34); MEAN CORPUSCULAR HGB CONC 33.8 g/dl (32-36); MEAN PLATELET VOLUME 9.5 fL (7.4-10.4); MONO % 10.3 %; NEUT % 63.3 %; PLATELET COUNT 285 K/uL (130-400); RED BLOOD COUNT 4.22 M/uL (4.2-5.4); WHITE BLOOD COUNT 6.89 K/uL (4.8-10.8)
[2017-08-06 06:40] LABS: BLOOD UREA NITROGEN 16 mg/dl (7-18); BUN/CREATININE RATIO 17.6 (10-20); CALCIUM 9.3 mg/dl (8.5-10.1); CARBON DIOXIDE 24 mmol/L (21-32); CHLORIDE 105 mmol/L (98-107); GLUCOSE 131 mg/dl (70-99); POTASSIUM 3.8 mmol/L (3.5-5.1); SODIUM 137 mmol/L (136-145)
[2017-08-06 06:44] LABS: CKMB/CK RATIO 1.5 (0-3.0)
[2017-08-06 07:13] VITALS: BP 125/64; PULSE 44; TEMP 36.8; O2SAT 96
[2017-08-06] MEDS: CITALOPRAM 20 MG TAB PO SCH (07:33)
[2017-08-06] MEDS: ASPIRIN 81 MG ECTAB PO SCH (07:33)
[2017-08-06] MEDS: ATORVASTATIN 40 MG TAB PO SCH (07:33)
[2017-08-06] MEDS: HEPARIN SOD 5000 UNIT/0.5 ML CARP SQ SCH ×2 (07:35→19:47)
--- NOTE | 2017-08-06 10:11 | ECHOCARDIOGRAM REPORT ---
*NOTICE TO RECEIVING DEMOCRAT AGENCY This information is strictly Confidential and protected under [place] law. [place] law prohibits you from making any further disclosure of this information unless further disclosure is expressly permitted by the written consent of the person to whom it pertains or is authorized by law. A general authorization for the release of medical or other information is not sufficient for this purpose. Hospital accepts no responsibility if the information is made available to any other person, INCLUDING THE PATIENT. Interpretation Summary * Name: IVAN CLEMENT Study Date: 08/06/2017 08:45 AM BP: 125/64 mmHg * Patient Location: C.2E\S\E202\S\1 HR: 44 * : 1950 (M/d/yyyy) Gender: Female Height: 63 in * Age: 66 yrs Ethnicity: CA Weight: 196 lb * Ordering Physician: Yariel Hess * Referring Physician: Self, Referred * * BSA: 1.9 m2 * -- Conclusions -- * There is borderline concentric left ventricular hypertrophy. * Left ventricular systolic function is normal. * Grade I diastolic dysfunction, (abnormal relaxation pattern). * Borderline left atrial enlargement. * There is mild mitral regurgitation. * Right ventricular systolic pressure is elevated at 30-40mmHg. Procedure Details * A complete two-dimensional transthoracic echocardiogram was performed (2D, M-mode, Doppler and color flow Doppler). Left Ventricle * The left ventricle is normal in size. * There is borderline concentric left ventricular hypertrophy. * Ejection Fraction = 60-65%. * Left ventricular systolic function is normal. * Grade I diastolic dysfunction, (abnormal relaxation pattern). * The left ventricular wall motion is normal. Right Ventricle * The right ventricle is normal in size and function. * The right ventricular systolic function is normal as assessed by tricuspid annular plane systolic excursion (TAPSE) (normal >1.5 cm). Atria * Borderline left atrial enlargement. * Right atrial size is normal. Mitral Valve * The mitral valve is grossly normal. * There is mild mitral regurgitation. Tricuspid Valve * The tricuspid valve is not well visualized, but is grossly normal. * There is trace tricuspid regurgitation. * Right ventricular systolic pressure is elevated at 30-40mmHg. Aortic Valve * The aortic valve is normal in structure and function. * No hemodynamically significant valvular aortic stenosis. * There is no significant aortic regurgitation. Great Vessels * The aortic root is normal size. Pericardium/Pleural * There is no pericardial effusion. MMode 2D Measurements and Calculations IVSd 1.2 cm IVSs 1.7 cm LVIDd 4.0 cm LVIDs 2.5 cm LVPWd 1.4 cm LVPWs 1.7 cm IVS/LVPW 0.88 FS 39.3 % EDV(Teich) 71.7 ml ESV(Teich) 21.3 ml EF(Teich) 70.3 % EDV(cubed) 65.9 ml ESV(cubed) 14.7 ml EF(cubed) 77.7 % % IVS thick 44.8 % % LVPW thick 25.4 % LV mass(C)d 185.5 grams LV mass(C)dI 96.8 grams/m\S\2 LV mass(C)s 159.3 grams LV mass(C)sI 83.1 grams/m\S\2 SV(Teich) 50.4 ml SI(Teich) 26.3 ml/m\S\2 SV(cubed) 51.2 ml SI(cubed) 26.7 ml/m\S\2 Ao root diam 3.1 cm Ao root area 7.6 cm\S\2 LA dimension 4.0 cm LA/Ao 1.3 LVAd ap4 24.6 cm\S\2 LVLd ap4 8.0 cm EDV(MOD-sp4) 63.7 ml EDV(sp4-el) 64.3 ml LVAs ap4 12.8 cm\S\2 LVLs ap4 5.7 cm ESV(MOD-sp4) 25.4 ml ESV(sp4-el) 24.5 ml EF(MOD-sp4) 60.1 % EF(sp4-el) 61.9 % LVAd ap2 23.9 cm\S\2 LVLd ap2 7.8 cm EDV(MOD-sp2) 63.2 ml EDV(sp2-el) 61.9 ml LVAs ap2 13.5 cm\S\2 LVLs ap2 6.6 cm ESV(MOD-sp2) 23.8 ml ESV(sp2-el) 23.3 ml EF(MOD-sp2) 62.4 % EF(sp2-el) 62.4 % LVLd %diff -2.47 % EDV(MOD-bp) 63.7 ml LVLs %diff 14.2 % ESV(MOD-bp) 26.5 ml EF(MOD-bp) 58.4 % SV(MOD-sp4) 38.3 ml SI(MOD-sp4) 20.0 ml/m\S\2 SV(MOD-sp2) 39.5 ml SI(MOD-sp2) 20.6 ml/m\S\2 SV(MOD-bp) 37.2 ml SI(MOD-bp) 19.4 ml/m\S\2 SV(sp4-el) 39.8 ml SI(sp4-el) 20.7 ml/m\S\2 SV(sp2-el) 38.6 ml SI(sp2-el) 20.1 ml/m\S\2 Doppler Measurements and Calculations MV E max dory 107.3 cm/sec MV A max dory 113.2 cm/sec MV E/A 0.95 MV dec time 0.19 sec Ao V2 max 135.9 cm/sec Ao max PG 7.4 mmHg Ao max PG (full) 1.3 mmHg LV V1 max PG 6.1 mmHg LV V1 max 123.6 cm/sec TR max dory 310.8 cm/sec
[2017-08-06 10:17] LABS: LYME DISEASE AB IGG NEG (NEG)
[2017-08-06 10:18] LABS: LYME DISEASE AB IGM NEG (NEG)
[2017-08-06 10:56] LABS: ACT87 HEP C IGG SCREEN** NEG (NEG)
[2017-08-06 12:26] VITALS: BP_SYST 167; BP_SYST 180; BP_DIAS 74; BP_DIAS 88; PULSE 41; TEMP 36.9; O2SAT 96
--- NOTE | 2017-08-06 13:26 | Cardiology Consultation ---
Cardiology Consultation Date of Consultation: Aug 06, 2017. Requesting Physician: Maddie Reason for Consultation: Heart block History of Present Illness The patient is a 66-year-old woman without a significant cardiac history who recently began experiencing symptoms of exertional dyspnea. Generally speaking , she is a very active individual who was accustomed to routine exercise. She recently suffered a knee injury but prior to that was performing regular aerobic activity without limitation. She has not report significant dyspnea on exertion. Over the past couple of days however she has noticed some dyspnea with even minimal activity. Over the weekend while walking into a department store she was dyspneic. Yesterday while at ascending some stair she was dyspneic. Her daughter is a nurse and measured her pulse which was low in the 40s. Based on these concerns she presented to [facility] for evaluation was discovered to have bradycardia in association with heart block. Currently, the patient is feeling well. She denies any dizziness or lightheadedness during these past few days. She has not suffered a syncopal episode. She denies any exertional chest symptoms such as chest pressure or chest pain. She has not report any recent illnesses involving fevers or chills. She denies any significant joint pains or swollen joints. She cannot recall any rashes recently. 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 Remote history of tobacco abuse. Currently nonsmoker. Review of Systems Per HPI. She is not aware of any recent tick bites. She does have a dog with Lyme disease. All Other Systems: Reviewed and Negative Allergies Coded Allergies: Nifedipine (Verified Allergy, Unknown, TACHYCARDIA, 08/05/17) Oxycodone (Verified Adverse Reaction, Mild, VOMITING, 08/05/17) Medications Current Inpatient Medications Medications (Trade) Dose Ordered Sig/Tino Route Start Time Stop Time Status Last Admin Dose Admin Heparin Sodium (Porcine) (Heparin Sq 5000 Unit/0.5ml) 5,000 unit Q12 SQ 08/06/17 09:00 09/05/17 08:59 08/06/17 07:35 5,000 UNIT Acetaminophen (Tylenol Tab) 500 mg Q4H PRN PO 08/05/17 22:45 09/04/17 22:44 Aspirin (Ecotrin Tab) 81 mg QAM PO 08/06/17 09:00 09/05/17 08:59 08/06/17 07:33 81 MG Amlodipine Besylate (Norvasc Tab) 10 mg HS PO 08/06/17 21:00 09/05/17 20:59 Atorvastatin Calcium (Lipitor Tab) 40 mg DAILY PO 08/06/17 09:00 09/05/17 08:59 08/06/17 07:33 40 MG Citalopram Hydrobromide (celeXA TAB) 20 mg HS PO 08/06/17 21:00 09/05/17 20:59 08/06/17 07:33 20 MG Levothyroxine Sodium (Synthroid Tab) 125 mcg DAILYBB PO 08/06/17 06:00 09/05/17 05:59 08/06/17 05:46 125 MCG Losartan Potassium (coZAAR TAB) 25 mg QPM PO 08/06/17 21:00 09/05/17 20:59 Lorazepam (Ativan Tab) 0.5 mg Q6H PRN PO 08/05/17 23:00 09/04/17 22:59 08/06/17 00:59 0.5 MG Hydralazine HCl (HydrALAZINE INJ) 10 mg Q6H PRN IV. 08/05/17 23:00 09/04/17 22:59 08/06/17 00:23 10 MG Physical Exam Vital Signs Past 12 Hours Date Time Temp Pulse Resp B/P (MAP) Pulse Ox O2 Delivery O2 Flow Rate FiO2 08/06/17 12:26 36.9 41 16 180/88 (118) 96 Room Air 167/74 (105) 08/06/17 12:00 Room Air 08/06/17 08:00 Room Air 08/06/17 07:13 36.8 44 12 125/64 (84) 96 Room Air 08/06/17 04:15 36.8 51 21 158/77 (104) 95 Room Air 08/06/17 04:00 Room Air She is alert and oriented x3. Mood affect appear normal. She answered all questions appropriately. HEENT: Sclerae are anicteric. Pupils are equal and reactive to light and accommodation. Extraocular movements were intact. Neuro: Cranial nerves intact Neck: Examination of the submandibular region did not reveal any significant lymphadenopathy. Carotids are palpable bilaterally and free of bruits on auscultation. There was no evidence of jugular venous distention. The thyroid was not enlarged. Lungs: Lungs are clear to auscultation bilaterally. There are no rales wheezes or rhonchi. She has normal respiratory effort without use of accessory muscles. There is normal pulmonary excursion. Cardiac: The rhythm was somewhat irregular. S1 and S2 were normal. There are no murmurs on examination. The PMI was not markedly displaced on palpation. Abdomen: The abdomen was soft and nontender. Extremities: Patient has bilateral radial pulses that are equal in intensity. There is no evidence cyanosis or clubbing. There was no evidence of significant peripheral edema bilaterally. Skin: There are no rashes noted on examination today. Data Laboratory Results: Last 24 Hours Test 08/05/17 20:06 08/05/17 23:57 08/06/17 00:07 08/06/17 05:54 White Blood Count 8.98 K/uL 6.89 K/uL Red Blood Count 4.31 M/uL 4.22 M/uL Hemoglobin 14.0 g/dL 13.3 g/dL Hematocrit 40.1 % 39.3 % Mean Corpuscular Volume 93.0 fL 93.1 fL Mean Corpuscular Hemoglobin 32.5 pg 31.5 pg Mean Corpuscular Hemoglobin Concent 34.9 g/dl 33.8 g/dl Platelet Count 310 K/uL 285 K/uL Mean Platelet Volume 9.6 fL 9.5 fL Neutrophils (%) (Auto) 66.5 % 63.3 % Lymphocytes (%) (Auto) 22.6 % 24.1 % Monocytes (%) (Auto) 8.6 % 10.3 % Eosinophils (%) (Auto) 2.0 % 1.7 % Basophils (%) (Auto) 0.1 % 0.3 % Neutrophils # (Auto) 5.97 K/uL 4.36 K/uL Lymphocytes # (Auto) 2.03 K/uL 1.66 K/uL Monocytes # (Auto) 0.77 K/uL 0.71 K/uL Eosinophils # (Auto) 0.18 K/uL 0.12 K/uL Basophils # (Auto) 0.01 K/uL 0.02 K/uL RDW Standard Deviation 44.8 fL 44.4 fL RDW Coefficient of Variation 13.1 % 13.1 % Immature Granulocyte % (Auto) 0.2 % 0.3 % Immature Granulocyte # (Auto) 0.02 K/uL 0.02 K/uL Prothrombin Time 10.7 SECONDS Prothromb Time International Ratio 1.0 Activated Partial Thromboplast Time 28.3 SECONDS Partial Thromboplastin Ratio 1.1 Sodium Level 135 mmol/L 137 mmol/L Potassium Level 3.9 mmol/L 3.8 mmol/L Chloride Level 102 mmol/L 105 mmol/L Carbon Dioxide Level 23 mmol/L 24 mmol/L Anion Gap 10.0 mmol/L 8.0 mmol/L Blood Urea Nitrogen 21 mg/dl 16 mg/dl Creatinine 1.04 mg/dl 0.90 mg/dl Est Creatinine Clear Calc Drug Dose 57.1 ml/min 65.1 ml/min Estimated GFR () 65.3 77.8 Estimated GFR (Non- 56.3 67.1 BUN/Creatinine Ratio 20.6 17.6 Random Glucose 138 mg/dl 131 mg/dl Calcium Level 9.6 mg/dl 9.3 mg/dl Magnesium Level 1.8 mg/dl Total Bilirubin 0.4 mg/dl Direct Bilirubin < 0.1 mg/dl Aspartate Amino Transf (AST/SGOT) 23 U/L Alanine Aminotransferase (ALT/SGPT) 30 U/L Alkaline Phosphatase 99 U/L Troponin I < 0.015 ng/ml < 0.015 ng/ml < 0.015 ng/ml Pro-B-Type Natriuretic Peptide 210 pg/ml Total Protein 8.7 gm/dl Albumin 4.5 gm/dl Lipase 191 U/L Thyroid Stimulating Hormone (TSH) 6.050 uIu/ml Free Thyroxine 1.10 ng/dl Bedside Glucose 140 mg/dl Total Creatine Kinase 145 U/L 143 U/L Creatine Kinase MB 2.2 ng/ml 2.1 ng/ml Creatine Kinase MB Ratio 1.5 1.5 Lyme Disease IgG Antibody NEG Lyme Disease IgM Antibody NEG Hepatitis C Antibody Screen NEG Hepatitis C Antibody NEG Test 08/06/17 06:21 08/06/17 11:03 Bedside Glucose 130 mg/dl 131 mg/dl Imaging: Chest x-ray was obtained at the time of admission which was normal EKG: Normal sinus rhythm with right bundle branch block and evidence of Mobitz 2 conduction Telemetry reviewed: 2-1 conduction and Mobitz 2 conduction Echocardiogram was obtained today which revealed preserved LV systolic function. Mild mitral regurgitation. No other significant valvular abnormalities. Assessment & Plan 1. Heart block: Patient presented with evidence of Mobitz 2 conduction. This is in the setting of a right bundle branch block and possibly left anterior fascicular block. She was on a beta-nell which may have exacerbated this condition. Her Lyme titers are negative. Her symptoms are likely related to poor chronotropic competence in the setting of infra-Hisian block. Her echocardiogram is normal there is no evidence of cardiomyopathy. I suspect the conduction were seeing simply progression of longstanding conduction disease. However, seems reasonable in the absence of severe symptoms to monitor her for at least 24 hours in order to see if her conduction improves without labetalol. If she continues to have evidence of heart block tomorrow morning I would advocate consideration of pacemaker implantation. 2. Hypertension: Patient does have some very mild hypertrophy on echocardiogram suggesting longstanding hypertension. She reportedly has been difficult to control in the past. With discontinuation of her labetalol additional agents may need to be entertained. If he does in fact need a pacemaker labetalol could be resumed afterwards.
[2017-08-06 15:03] VITALS: BP 151/108; PULSE 42; TEMP 36.6; O2SAT 96
[2017-08-06 15:10] VITALS: BP 164/86
--- NOTE | 2017-08-06 17:51 | Progress Note ---
Progress Note Date of Service Aug 06, 2017. Progress Note 66-year-old female admitted with the emergency room with a new onset of second degree AV block Mobitz 2 and a new right bundle branch block. She was also thought to have a left anterior hemiblock. Patient was symptomatic. She was complaining of shortness of breath. Dizziness and lightheadedness. Patient was admitted. Cardiac isoenzymes have been negative for any evidence of myocardial injury. She was on labetalol. That was discontinued. Agent remains in a second-degree AV block even throughout the day and again this afternoon. This has been continuous. She was seen in cardiology consultation by Dr. Hair. He recommended permanent pacing. Tentatively scheduled for tomorrow. She is quite anxious and nervous. She denied any headache. Does complain of intermittent dizziness and lightheadedness. No earaches or throat or neck pain. No chest pain pressure or tightness. She does feel dyspneic especially with trying to walk. No nausea no vomiting. No problem with her bowel movements. She is tolerating her diet. She try to ambulate today that she was getting weak and feeling short of breath whenever she did that. EXAMINATION : GENERAL: Well-developed. No distress. VITAL SIGNS: Blood pressure 125/64 pulse 44 temperature 36.8 respiration 12 oxygen saturation 96% on room air SKIN: Warm and dry. No rash. HEENT: Completely unremarkable. NECK: No adenopathy no thyromegaly. No JVD. HEART: Irregular heart sounds. LUNGS: Clear. ABDOMEN: Soft nontender. BACK: No spinal tenderness. EXTREMITIES: No edema clubbing or cyanosis. LABORATORY TESTS : WBC count 6890, hemoglobin 13.3, hematocrit 39.3, platelet count 285,000. Sodium 137, potassium 3.8, chloride 105, CO2 24, BUN 16, creatinine 0.9, glucose 131, calcium 9.3, cardiac isoenzymes were all negative for any evidence of myocardial injury. Echocardiogram was normal. No evidence of any cardiomyopathy. Electrocardiogram continued to show second-degree AV block Mobitz 2 and right bundle branch block. Lyme antibodies were negative ASSESSMENT : * Second-degree AV block Mobitz II. New-onset. * New right bundle branch block * Symptomatic heart block with dizziness and lightheadedness and shortness of breath * Type 2 diabetes mellitus * Arterial hypertension * Hypothyroidism PLAN : * Continuing the same medications. * We will continue keeping her off the labetalol onto the pacemaker is placed then. Restarted safely. * Continue ambulation as much as possible * Had a call today from Dr. Montgomery he is with [facility] [employer]. The issue was a whether patient should be under observation status or admission. I gave him all the information as far as patient has a new heart block. Symptomatic. Pacemaker recommended by cardiology. Anticipating to do that tomorrow. That will require her to stay in the hospital for an additional day after the pacemaker is displaced. He explained that if patient was requiring IV medications such as atropine or epinephrine or other medication that would justify the admission. I explained to him that there is no way the patient can go home with a new onset of heart block and the fact that she needs a pacemaker. He stated that he will approve her for observation status and the hospital can appeal the decision depending on her stay. I'm not really sure up to this point with the issue is. The patient who presents with a new heart block with a new right bundle branch block and also suspected left anterior hemiblock there should be no question about the need to keep her under admission status.
[2017-08-06 18:58] VITALS: BP 175/89; PULSE 44; TEMP 36.9; O2SAT 95
[2017-08-06] MEDS: AMLODIPINE BESYLATE 5 MG TAB PO SCH (19:44)
[2017-08-06] MEDS: LOSARTAN POTASSIUM 25 MG TAB PO SCH (19:45)
[2017-08-07] VITALS (16 sets, daily range): BP systolic 130–174; BP diastolic 65–101; PULSE 42–97; TEMP 36.7–37.7; O2SAT 92–95
[2017-08-07] MEDS ORDERED: CEFAZOLIN SOD 2000MG/10 ML IV PUSH IV SCH (06:00)
[2017-08-07] MEDS: LEVOTHYROXINE 125 MCG TAB PO SCH (06:03)
[2017-08-07 06:30] LABS: BASO % 0.3 %; BASO ABS # 0.02 K/uL (0-0.2); COMPLETE YES; EOS % 2.1 %; HEMATOCRIT 41.2 % (37-47); IG% 0.3 %; LYMPH ABS # 1.75 K/uL (1.2-3.4); MEAN CELL VOLUME 93.2 fL (80-100); MEAN CORPUSCULAR HEMOGLOBIN 31.4 pg (25-34); MEAN CORPUSCULAR HGB CONC 33.7 g/dl (32-36); MEAN PLATELET VOLUME 9.7 fL (7.4-10.4); MONO % 12.6 %; NEUT % 60.7 %; PLATELET COUNT 285 K/uL (130-400); RED BLOOD COUNT 4.42 M/uL (4.2-5.4); WHITE BLOOD COUNT 7.29 K/uL (4.8-10.8)
[2017-08-07 07:03] LABS: BUN/CREATININE RATIO 18.6 (10-20); CALCIUM 9.5 mg/dl (8.5-10.1); CREATININE 1.11 mg/dl (0.60-1.20)
[2017-08-07] MEDS ORDERED: BUPIVACAINE 0.5 % 5 MG/1 ML MPF 30ML VIAL ONE (08:40)
[2017-08-07] MEDS ORDERED: BACITRACIN 50000 UNIT VIAL ONE (08:41)
[2017-08-07] MEDS ORDERED: ACETAMINOPHEN 500 MG TAB PO PRN (09:15)
[2017-08-07] MEDS ORDERED: CEFAZOLIN SOD 1 GM VIAL ONE (09:26)
[2017-08-07] MEDS ORDERED: FENTANYL CITRATE INJ 50 MCG/1 ML 2 ML VIAL ONE (09:26)
[2017-08-07] MEDS ORDERED: MIDAZOLAM HCL 5 MG/ML 1 ML VIAL ONE (09:26)
--- NOTE | 2017-08-07 09:29 | Procedure Note ---
Pre-Mod Sedation Assessment General Date of Moderate Sedation: Aug 07, 2017. Vital Signs: Vital Signs Past 12 Hours Date Time Temp Pulse Resp B/P (MAP) Pulse Ox O2 Delivery O2 Flow Rate FiO2 08/07/17 08:02 36.7 45 16 144/65 (91) 94 Room Air 08/07/17 08:00 Room Air 08/07/17 06:21 36.7 45 16 144/65 94 Room Air 08/07/17 04:00 95 Room Air 08/07/17 03:23 36.8 47 18 148/70 (96) 95 Room Air 08/07/17 00:22 36.8 42 16 174/69 (104) 95 Room Air 08/07/17 00:01 95 Room Air Review Cardiovascular: + irregularly irregular Airway Class: III Pre-Sedation Airway Assessment Oral Cavity: Capped Teeth Able to Visualize Vocal Cords: No Short Thick Neck: Yes Hx of Sleep Apnea: Yes Smoking Status: Former Smoker Mallampati Classification: Class III ASA Classification: Class III Procedure Planning Contraindications-for Mod Sed: None Yes Notes The planned sedation has been discussed with the patient and consent obtained. I have identified the patient, determined the appropriateness of sedation and have assessed the patient immediately prior to the procedure. All medicine(s) and interventions are by my order.
[2017-08-07] MEDS ORDERED: ACETAMINOPHEN 325 MG TAB PO PRN (10:45)
[2017-08-07] MEDS: CITALOPRAM 20 MG TAB PO SCH (10:51)
[2017-08-07] MEDS: ASPIRIN 81 MG ECTAB PO SCH (10:51)
[2017-08-07] MEDS: ATORVASTATIN 40 MG TAB PO SCH (10:51)
[2017-08-07] MEDS: HEPARIN SOD 5000 UNIT/0.5 ML CARP SQ SCH ×2 (10:52→20:52)
--- NOTE | 2017-08-07 12:11 | [facility] Operative Report ---
Operative Report Date of Service Aug 07, 2017. Operative Report Procedure performed: Implantation of dual-chamber permanent pacemaker Staff chief wheelage clerk: Tono Hair MD Indication: The patient is 66-year-old woman without a known history of cardiac disease who presented with exertional intolerance. She is noted to have evidence of Mobitz 2 heart block. Based on her symptoms and conduction disease she was felt to be a good candidate for permanent pacemaker due to symptomatic non reversible AV node dysfunction. A dual-chamber device was selected as the patient is currently in sinus rhythm which to maintain AV synchrony. Procedure in detail: The patient was informed of the risks benefits and alternatives to the intended procedure and she wished to proceed. She was taken to the electrophysiology suite in a fasting state. A preoperative antibiotic had been administered. The patient was monitored electrocardiographically throughout today's procedure and conscious sedation was administered per protocol. The left upper pectoral area is prepped and draped in usual sterile fashion. This area was anesthetized using subcutaneous menstruation of a xylocaine solution. An incision was made at this site and carried down to the prepectoralis fascia using sharp dissection. Electrocautery was also employed for dissection as well as for hemostasis. A device pocket was fashioned tissues above the pectoralis muscle. Subsequent to this maneuver the left axillary vein was accessed using modified Seldinger technique. Sheaths were placed over guidewires at this site and used to facilitate passage of the pacing leads to the respective chambers under fluoroscopic guidance. This included right atrial and right ventricular leads. Adequate sensing and threshold parameters were obtained prior to Active fixation of the leads to the endocardial surface. The proximal portion leads were then sutured the prepectoral fascia using nonabsorbable suture. The device pocket was irrigated with antibiotic solution. The leads were then attached to the device. The device and leads were then placed in the pocket and pocket was closed in 3 layers of absorbable suture. Steri-Strips and sterile dressing were applied. The device was tested noninvasively prior to conclusion the procedure. The patient tolerated procedure well there no immediate complications. Equipment used: New pulse generator: [employer]. Model number: [id number]. Serial number [id number] Right atrial lead: [employer]onic. Model number: 4076. Serial number [id number] Right ventricular lead: [employer] Manager Medtronic. Model number: 4076. Serial number [id number] Measured data: Right atrial lead: P-waves measured 5.6 mV. Pacing threshold was 0.4 volts at 0.4 milliseconds with a pacing impedance of 533 Ohms Right ventricular lead: R-waves measured 5.6 mV pacing threshold was 0.4 volts at 0.4 milliseconds with a pacing impedance of 741 Ohms Impression: Successful implantation of dual-chamber permanent pacemaker I attest to the content of the Intraoperative Record and any orders documented therein. Any exceptions are noted below.
[2017-08-07] MEDS ORDERED: TRAMADOL HCL 50 MG TAB PO PRN (15:30)
[2017-08-07] MEDS ORDERED: TRAMADOL HCL 50 MG TAB PO ONE (15:30)
[2017-08-07] MEDS ORDERED: NURSING VERBAL MED ORDER ONE (15:30)
--- NOTE | 2017-08-07 16:10 | Cardiology Follow-Up ---
Subjective Date of Service: Aug 07, 2017. Pt evaluation today including: conversation w/ patient, conversation w/ family , physical exam, lab review History of Present Illness I saw the patient earlier this morning as well as after her procedure. I had her walk around the santos this morning in order to monitor her symptoms and conduction. She did have notable dyspnea and fatigue with ambulation. Subsequent to her device implantation she claims to be feeling well. She has minimal discomfort at the implant site. Social History Smoking Status: Former Smoker History of Alcohol Use: Yes (rarely) Review of Systems Per HPI. She is not aware of any recent tick bites. She does have a dog with Lyme disease. Objective Vital Signs Past 12 Hours Date Time Temp Pulse Resp B/P (MAP) Pulse Ox O2 Delivery O2 Flow Rate FiO2 08/07/17 15:47 165/99 (121) 08/07/17 14:59 36.7 81 18 172/101 (124) 93 Room Air 08/07/17 13:23 37.7 77 18 155/90 (111) 94 Room Air 08/07/17 12:30 37.0 85 16 142/84 (103) 92 Room Air 08/07/17 12:00 Room Air 08/07/17 11:56 37.2 97 20 141/85 (103) 94 Room Air 08/07/17 11:27 37.2 79 16 134/94 (107) 94 Room Air 08/07/17 11:02 76 18 161/83 (109) 93 Room Air 08/07/17 10:45 83 18 163/99 (120) 92 Room Air 08/07/17 10:35 80 16 142/90 (107) 98 Room Air 08/07/17 10:25 80 16 158/90 (112) 98 Room Air 08/07/17 08:02 36.7 45 16 144/65 (91) 94 Room Air 08/07/17 08:00 Room Air 08/07/17 06:21 36.7 45 16 144/65 94 Room Air Last Recorded Weight-Kilograms: 87.900 Intake & Output 8-Hour Column 08/07/17 08/07/17 08/08/17 15:59 23:59 07:59 Intake Total 220 ml Output Total 250 ml Balance -30 ml 24-Hour Column 08/08/17 07:59 Intake Total 220 ml Output Total 250 ml Balance -30 ml Physical Exam She is alert and oriented x3. Mood affect appear normal. She answered all questions appropriately. HEENT: Sclerae are anicteric. Pupils are equal and reactive to light and accommodation. Extraocular movements were intact. Neuro: Cranial nerves intact Device implantation site is without hematoma or drainage. No significant tenderness on palpation Data Laboratory Results: Last 24 Hours Test 08/06/17 20:14 08/07/17 05:46 08/07/17 07:18 08/07/17 10:54 Bedside Glucose 107 mg/dl 152 mg/dl 126 mg/dl White Blood Count 7.29 K/uL Red Blood Count 4.42 M/uL Hemoglobin 13.9 g/dL Hematocrit 41.2 % Mean Corpuscular Volume 93.2 fL Mean Corpuscular Hemoglobin 31.4 pg Mean Corpuscular Hemoglobin Concent 33.7 g/dl Platelet Count 285 K/uL Mean Platelet Volume 9.7 fL Neutrophils (%) (Auto) 60.7 % Lymphocytes (%) (Auto) 24.0 % Monocytes (%) (Auto) 12.6 % Eosinophils (%) (Auto) 2.1 % Basophils (%) (Auto) 0.3 % Neutrophils # (Auto) 4.43 K/uL Lymphocytes # (Auto) 1.75 K/uL Monocytes # (Auto) 0.92 K/uL Eosinophils # (Auto) 0.15 K/uL Basophils # (Auto) 0.02 K/uL RDW Standard Deviation 44.2 fL RDW Coefficient of Variation 13.0 % Immature Granulocyte % (Auto) 0.3 % Immature Granulocyte # (Auto) 0.02 K/uL Sodium Level 137 mmol/L Potassium Level 4.0 mmol/L Chloride Level 102 mmol/L Carbon Dioxide Level 26 mmol/L Anion Gap 9.0 mmol/L Blood Urea Nitrogen 21 mg/dl Creatinine 1.11 mg/dl Est Creatinine Clear Calc Drug Dose 53.1 ml/min Estimated GFR () 60.4 Estimated GFR (Non- 52.1 BUN/Creatinine Ratio 18.6 Random Glucose 147 mg/dl Calcium Level 9.5 mg/dl Imaging: EKG: Telemetry reviewed: Assessment and Plan 1. Heart block: Evaluation of her monitor recordings earlier this morning did reveal evidence of Mobitz 1 conduction. However, with ambulation around the santos she had notable dyspnea and third-degree heart block. 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 Despite holding her beta-nell for well over 24 hours we see no improvement in her conduction. I am quite confident that she has significant baseline conduction disease requiring permanent pacing. I did discuss the risks benefits and alternatives of the procedure with the patient and her family. At this point will plan on proceeding with a dual-chamber implant. 2. Hypertension: Somewhat elevated blood pressures today. After implantation of her device reinstitution of her standard medical therapy could be entertained.
[2017-08-07] MEDS ORDERED: IBUPROFEN 800 MG TAB PO PRN (16:30)
--- NOTE | 2017-08-07 17:42 | Progress Note ---
Progress Note Date of Service Aug 07, 2017. Progress Note 66-year-old female admitted with second-degree AV block Mobitz 2. She was complaining of dizziness and lightheadedness and dyspnea. She was on labetalol prior to her admission. The medication was discontinued. She remained in a second-degree AV block. She was seen in cardiology consultation by Dr. Hair. The recommendation was to proceed with a permanent pacemaker. Because of the nonresolution of the second-degree AV block with discontinuation of labetalol he proceeded with the placement of a dual-chamber pacemaker today. The procedure was well-tolerated. Her medical problems also include arterial hypertension, type 2 diabetes mellitus, hypothyroidism, hyperlipidemia. EXAMINATION : GENERAL: Well-developed. No distress. She is complaining of pain at the pacemaker insertion site. VITAL SIGNS: Blood pressure 172/101, pulse 81, respiration 18, sugar 36.7, oxygen saturation 93% on room air SKIN: Warm and dry. No rash. HEENT: No mucosal abnormalities. NECK: Supple. Nontender. No JVD. HEART: Regular heart sounds. Monitor is showing 100% paced rhythm. LUNGS: Clear. ABDOMEN: Soft nontender. BACK: No spinal tenderness. EXTREMITIES: No edema clubbing or cyanosis. LABORATORY TESTS : Sodium 137, potassium 4.0, chloride 102, CO2 26, BUNs 21, creatinine 1.11, glucose 147, calcium 9.5. WBC count 7290, hemoglobin 13.9, hematocrit 41.2, platelet count 285,000. ASSESSMENT : * Second-degree AV block Mobitz 2 * Arterial hypertension * Type 2 diabetes mellitus * Hyperlipidemia * Hypothyroidism * Status post dual-chamber pacemaker implant today PLAN: * Continuing her medications * I will restart her labetalol * Ultram ordered for pain control at the surgical site * If she stable anticipating discharge tomorrow. * If in the future any of her symptoms persist especially the exertional dyspnea then she will undergo stress testing
[2017-08-07] MEDS: CEFAZOLIN IV 1,000 MG in SYRINGE 0 ML IV SCH (17:49)
[2017-08-07] MEDS: AMLODIPINE BESYLATE 5 MG TAB PO SCH (20:47)
[2017-08-07] MEDS: LOSARTAN POTASSIUM 25 MG TAB PO SCH (20:47)
[2017-08-08] VITALS (7 sets, daily range): BP systolic 132–177; BP diastolic 85–105; PULSE 70–82; TEMP 36.5–36.9; O2SAT 95–96
[2017-08-08] MEDS: CEFAZOLIN IV 1,000 MG in SYRINGE 0 ML IV SCH (01:44)
[2017-08-08] MEDS: LEVOTHYROXINE 125 MCG TAB PO SCH (05:59)
[2017-08-08 06:12] LABS: BASO % 0.1 %; BASO ABS # 0.01 K/uL (0-0.2); COMPLETE YES; EOS % 1.7 %; HEMATOCRIT 39.3 % (37-47); IG% 0.2 %; LYMPH % 19.9 %; LYMPH ABS # 1.64 K/uL (1.2-3.4); MEAN CELL VOLUME 92.5 fL (80-100); MEAN CORPUSCULAR HEMOGLOBIN 31.1 pg (25-34); MEAN CORPUSCULAR HGB CONC 33.6 g/dl (32-36); MEAN PLATELET VOLUME 9.6 fL (7.4-10.4); MONO % 13.2 %; NEUT % 64.9 %; PLATELET COUNT 258 K/uL (130-400); RED BLOOD COUNT 4.25 M/uL (4.2-5.4); WHITE BLOOD COUNT 8.23 K/uL (4.8-10.8)
[2017-08-08 06:47] LABS: BUN/CREATININE RATIO 24.1 (10-20); CALCIUM 9.2 mg/dl (8.5-10.1); CREATININE 1.06 mg/dl (0.60-1.20)
--- NOTE | 2017-08-08 07:05 | DIAGNOSTIC IMAGING REPORT ---
CHEST 2 VIEWS ROUTINE CLINICAL HISTORY: EXACT TIME ORDERED Evaluate for pneumothorax and lead placement pacemaker placement COMPARISON STUDY: 08/05/2017 FINDINGS: Placement of a permanent bipolar cardiac pacemaker. Leads in good position. No evidence for pneumothorax. The lungs are clear. IMPRESSION: Bipolar cardiac pacemaker with leads in good position. No evidence for pneumothorax. The above report was generated using voice recognition software. It may contain grammatical, syntax or spelling errors. Electronically signed by: Silas Soares M.D. 08/08/2017 7:04 AM Dictated Date/Time: 08/08/2017 7:04 AM
--- NOTE | 2017-08-08 07:33 | Discharge Instructions ---
Discharge Instructions Date of Service Aug 08, 2017. Admission Reason for Admission: Second Degree Av Block Mobitz 2 Arterial hypertension type 2 diabetes mellitus hyperlipidemia hypothyroidism Discharge Discharge Diagnosis / Problem: Second degree AA block Mobitz 2 Discharge Goals Goal(s): Decrease discomfort, Improve function, Increase independence, Improve disease control Activity Recommendations Activity Limitations: as noted below (no liftinf of left arm) . Current Hospital Diet Patient's current hospital diet: AHA Diet (Heart Healthy), Diabetes Type 2 Diet Discharge Diet Recommended Diet: AHA Diet (Heart Healthy), Diabetes Type 2 Diet Pending Studies Studies pending at discharge: no Laboratory Results Hemoglobin A1c Test 05/29/17 08:30 Range/Units Estimated Average Glucose 157 mg/dl Hemoglobin A1c 7.1 H 4.5-5.6 % Lipid Panel Test 05/29/17 08:30 Range/Units Triglycerides Level 183 H 0-150 mg/dl Cholesterol Level 139 0-200 mg/dl HDL Cholesterol 39 mg/dl LDL Cholesterol Direct 77 mg/dl Cholesterol/HDL Ratio 3.6 LDL Cholesterol, Calculated mg/dl Medical Emergencies . Who to Call and When: Medical Emergencies: If at any time you feel your situation is an emergency, please call 911 immediately. . Non-Emergent Contact Non-Emergency issues call your: Primary Care Provider . . "Provider Documentation" section prepared by Yariel Gayle. . VTE Core Measure Inpt VTE Proph given/why not?: Treatment not indicated
[2017-08-08] MEDS ORDERED: LABETALOL HCL 100 MG TAB PO ONE (07:45)
--- NOTE | 2017-08-08 13:32 | Cardiology Follow-Up ---
Subjective Date of Service: Aug 08, 2017. Pt evaluation today including: conversation w/ patient, conversation w/ family , physical exam, chart review, review of studies, conversation w/ attending History of Present Illness This morning the patient claims to be feeling well. She has no pain at the device implant site. She has not been ambulatory around the santos but denies significant dizziness or dyspnea currently. He does report feeling somewhat anxious last night regarding her blood pressures. Social History Smoking Status: Former Smoker History of Alcohol Use: Yes (rarely) Review of Systems Per HPI. She is not aware of any recent tick bites. She does have a dog with Lyme disease. Objective Vital Signs Past 12 Hours Date Time Temp Pulse Resp B/P (MAP) Pulse Ox O2 Delivery O2 Flow Rate FiO2 08/08/17 09:56 36.9 82 16 96 Room Air 08/08/17 09:46 132/87 (102) 08/08/17 08:00 96 Room Air 08/08/17 07:48 36.9 82 16 177/105 (129) 96 Room Air 08/08/17 04:25 70 18 154/86 (108) 96 Room Air 08/08/17 04:00 Room Air 08/08/17 03:10 36.5 70 18 163/102 (122) 95 Room Air Last Recorded Weight-Kilograms: 87.500 Physical Exam She is alert and oriented x3. Mood affect appear normal. She answered all questions appropriately. HEENT: Sclerae are anicteric. Pupils are equal and reactive to light and accommodation. Extraocular movements were intact. Neuro: Cranial nerves intact Device implantation site is without hematoma or drainage. No significant tenderness on palpation. Some ecchymosis at the inferior edge Data Laboratory Results: Last 24 Hours Test 08/07/17 15:52 08/07/17 19:51 08/08/17 05:48 08/08/17 06:27 Bedside Glucose 106 mg/dl 112 mg/dl 161 mg/dl White Blood Count 8.23 K/uL Red Blood Count 4.25 M/uL Hemoglobin 13.2 g/dL Hematocrit 39.3 % Mean Corpuscular Volume 92.5 fL Mean Corpuscular Hemoglobin 31.1 pg Mean Corpuscular Hemoglobin Concent 33.6 g/dl Platelet Count 258 K/uL Mean Platelet Volume 9.6 fL Neutrophils (%) (Auto) 64.9 % Lymphocytes (%) (Auto) 19.9 % Monocytes (%) (Auto) 13.2 % Eosinophils (%) (Auto) 1.7 % Basophils (%) (Auto) 0.1 % Neutrophils # (Auto) 5.33 K/uL Lymphocytes # (Auto) 1.64 K/uL Monocytes # (Auto) 1.09 K/uL Eosinophils # (Auto) 0.14 K/uL Basophils # (Auto) 0.01 K/uL RDW Standard Deviation 43.8 fL RDW Coefficient of Variation 13.0 % Immature Granulocyte % (Auto) 0.2 % Immature Granulocyte # (Auto) 0.02 K/uL Sodium Level 134 mmol/L Potassium Level 4.0 mmol/L Chloride Level 101 mmol/L Carbon Dioxide Level 24 mmol/L Anion Gap 9.0 mmol/L Blood Urea Nitrogen 26 mg/dl Creatinine 1.06 mg/dl Est Creatinine Clear Calc Drug Dose 55.5 ml/min Estimated GFR () 63.8 Estimated GFR (Non- 55.1 BUN/Creatinine Ratio 24.1 Random Glucose 144 mg/dl Calcium Level 9.2 mg/dl Imaging: Chest x-ray demonstrated stable lead position. No evidence of pneumothorax EKG: She intermittent ventricular pacing and pseudo fusion Telemetry reviewed: No significant arrhythmias. Some intrinsic conduction with pseudo fusion I performed a complete device interrogation today. Normal device function. I switched mode from DDD to MVP. Assessment and Plan 1. Heart block: She continues to have some intrinsic conduction which is better during sleeping hours and periods of high vagal tone. This also consistent with infra-Hisian block. She underwent successful implantation of dual-chamber permanent pacemaker yesterday. This appears to be functioning normally. I did change the mode to MVP to allow for a more intrinsic conduction.. 2. Hypertension: Her outpatient antihypertensive regimen has been re- initiated. No concerns over heart block or bradycardia now that she has pacemaker I advised the patient to refrain from lifting left arm above the shoulder behind the neck for period of 6 weeks time. She should keep wound dry and Steri- Strips intact until follow-up in our clinic next week.
--- NOTE | 2017-08-08 20:31 | Progress Note ---
Progress Note Date of Service Aug 08, 2017. Progress Note 66-year-old female admitted with a emergency room with a second- degree AV block Mobitz 2. She was complaining of dizziness and lightheadedness and shortness of breath. She was on labetalol for treatment of her high blood pressure and the medication was discontinued on admission. Her second-degree AV block persisted. She was seen in cardiology consultation by Dr. Tono Hair. Pacemaker was recommended. It was implanted yesterday. She had a dual -chamber pacemaker. Her medical problems include arterial hypertension and required multidrug regimen for control including Cozaar, amlodipine and labetalol. She is diabetic. Has hyperlipidemia and hypothyroidism. Her condition improved. Her vitals shown elevation of her blood pressure. She was restarted on labetalol this morning. She denied any headache no dizziness. She is having some pain at the surgical site. No shortness of breath. But she has not really exerted herself yet. She was anxious to do that to see if her shortness of breath persists. No nausea or vomiting. No problem urinating. No problem with her bowel movements. No pain in her back or extremities. No ankle edema. EXAMINATION : GENERAL: Well-developed. No distress. VITAL SIGNS: 177/105, pulse 82, respirations 16, temperature 36.9, oxygen saturation 96% on room air. After her receiving her morning medications her blood pressure came down to 132/87. SKIN: Warm and dry. No rash. HEENT: Unremarkable. NECK: Supple. Nontender. No JVD. HEART: Regular heart sounds. Monitor showing 100% paced rhythm. LUNGS: Clear. ABDOMEN: Soft nontender. BACK: No spinal tenderness. EXTREMITIES: No edema clubbing or cyanosis. LABORATORY TESTS : WBC count 8230, hemoglobin 13.2, hematocrit 39.8, platelet count 258,000. Sodium 134, potassium 4.0, chloride 101, CO2 24, BUNs 26, creatinine 1.06, glucose 144, calcium 9.2. ASSESSMENT : * Second-degree AV block Mobitz 2 * Dual-chamber pacemaker implant * Arterial hypertension * Type 2 diabetes mellitus * Hyperlipidemia * Hypothyroidism PLAN : * Patient was discharged today. * Follow up with Dr. Hair * I will see her in the office in one week * She was continued on the same medications as she has been taking prior to her admission * We'll see if her symptoms subside especially the shortness of breath with exertion. If this persists then she will need a stress test.
--- NOTE | 2017-08-21 22:05 | Discharge Summary ---
Discharge Summary Date of Service Aug 21, 2017. Discharge Summary ADMISSION DATE: 08/05/2017 DISCHARGE DATE: 08/08/2017 DISCHARGE DIAGNOSES: * second degree AV block Mobitz 2 * Arterial hypertension * Type 2 diabetes mellitus * Hyperlipidemia * Hypothyroidism * allergic asthma DISCHARGE MEDICATIONS: * albuterol HFA inhaler 1-2 puffs 4 times a day as needed * Amlodipine 10 mg daily * Atorvastatin 40 mg daily * Citalopram 20 mg daily * Glipizide 2.5 mg daily * Labetalol 100 mg twice a day * Levothyroxine 125 mcg daily * Losartan 25 mg daily * Metformin 1000 mg daily in the morning * Probiotic one daily Consultation: Dr. Tono Hair and cardiology Procedure: Implant of dual chamber pacemaker on 08/07/2017 66-year-old female admitted through the emergency room with recurrent shortness of breath and evidence of a second degree AV block Mobitz 2. Patient with multiple medical problems as noted above. She has been complaining of frequent episodes of shortness of breath. It happened to her on multiple occasions. One time she was walking to the store. Denied any associated chest pain. No diaphoresis. No nausea. No vomiting. On the day prior to her admission she was feeling dyspneic when she climbed up the steps. That was unusual for her. She was evaluated in the emergency room. Her electrocardiogram showed evidence of second degree AV block type II. Patient is on labetalol. The medication was discontinued. She was admitted to PCU with telemetry. PAST MEDICAL HISTORY, SOCIAL HISTORY, FAMILY HISTORY: As noted on admission history and physical ALLERGIES:nifedipine, oxycodone. ADMISSION MEDICATIONS: As noted on the home medication list PHYSICAL EXAMINATION AND LABORATORY TESTS ARE NOTED ON ADMISSION HISTORY AND PHYSICAL HOSPITAL COURSE: patient was admitted to PCU with telemetry. Full resuscitation. All her laboratory tests were ordered. Her labetalol was discontinued.cardiology consultation was requested. She was evaluated by Dr. Hair. She was monitored while her labetalol was discontinued. She continued to be in the same heart block. He recommended a pacemaker. Patient was taken to the operating room. A dual chamber pacemaker was implanted. The procedure was well tolerated. Her blood pressure was elevated. She was restarted on her labetalol. She was doing well. Remained asymptomatic. She was ambulating. Tolerating her diet. She was discharged home. Cardiology followup scheduled. Followup with me in the office was scheduled.
== END 2017-08-08 10:15 | disposition home or self-care (01) | DRG 244 ==
LOC: C.EDB 19:53 → C.2E 22:44 → ENRESERV 23:03
PROVIDERS: ADMIT Internal Medicine; ATTEND Internal Medicine
PROC: 02H63JZ Insertion of Pacemaker Lead into Right Atrium, Percutaneous Approach (ICD-10-PCS; principal; 2017-08-07 09:29)
PROC: 0JH606Z Insertion of Pacemaker, Dual Chamber into Chest Subcutaneous Tissue and Fascia, Open Approach (ICD-10-PCS; principal; 2017-08-07 09:29)
PROC: 02HK3JZ Insertion of Pacemaker Lead into Right Ventricle, Percutaneous Approach (ICD-10-PCS; principal; 2017-08-07 09:29)
DX: I44.1 Atrioventricular block, second degree (principal); I45.2 Bifascicular block; E11.9 Type 2 diabetes mellitus without complications; I10 Essential (primary) hypertension; E78.5 Hyperlipidemia, unspecified; F41.8 Other specified anxiety disorders; E03.9 Hypothyroidism, unspecified; Z87.891 Personal history of nicotine dependence; Z82.49 Family history of ischemic heart disease and other diseases of the circulatory system; Z83.3 Family history of diabetes mellitus

== ENCOUNTER → 2017-09-25 | Outpatient (CLI) | payer BC ==
[~2017-09-25] MED LIST changes: +LPT40 PO; -SIMV40TA4 PO
[2017-09-25 13:33] LABS: HEMOGLOBIN A1C 7.4 % (4.5-5.6)
[2017-09-25 13:56] LABS: BLOOD UREA NITROGEN 16 mg/dl (7-18); CALCIUM 9.6 mg/dl (8.5-10.1); CARBON DIOXIDE 25 mmol/L (21-32); CHOLESTEROL 177 mg/dl (0-200); CREATININE 0.91 mg/dl (0.60-1.20); GLUCOSE 163 mg/dl (70-99); POTASSIUM 4.2 mmol/L (3.5-5.1); SODIUM 137 mmol/L (136-145)
[2017-09-25 14:08] LABS: LDL CHOLESTEROL (DIRECT) 105 mg/dl
== END | disposition home or self-care (01) ==
LOC: C.LABSPEC 12:34
PROVIDERS: ATTEND Internal Medicine
DX: E78.5 Hyperlipidemia, unspecified (principal); E11.65 Type 2 diabetes mellitus with hyperglycemia; I10 Essential (primary) hypertension; E03.9 Hypothyroidism, unspecified

== ENCOUNTER → 2018-01-22 | Outpatient (CLI) | payer BC ==
[2018-01-22 14:25] LABS: BLOOD UREA NITROGEN 25 mg/dl (7-18); CALCIUM 9.3 mg/dl (8.5-10.1); CARBON DIOXIDE 23 mmol/L (21-32); CHOLESTEROL 166 mg/dl (0-200); CREATININE 0.97 mg/dl (0.60-1.20); GLUCOSE 138 mg/dl (70-99); LDL CHOLESTEROL (DIRECT) 85 mg/dl; POTASSIUM 4.3 mmol/L (3.5-5.1); SODIUM 136 mmol/L (136-145)
[2018-01-22 14:36] LABS: CREATININE RANDOM URINE 68.5 mg/dl
[2018-01-23 06:33] LABS: HEMOGLOBIN A1C 7.6 % (4.5-5.6)
== END | disposition home or self-care (01) ==
LOC: C.LABSPEC 12:33
PROVIDERS: ATTEND Internal Medicine
DX: Z00.00 Encounter for general adult medical examination without abnormal findings (principal); E11.9 Type 2 diabetes mellitus without complications; E78.5 Hyperlipidemia, unspecified; E03.9 Hypothyroidism, unspecified

== ENCOUNTER 2021-08-11 18:12 | Observation (INO) ==
[2021-08-11] MEDS ORDERED: SODIUM CHLORIDE 0.9% 500 ML IV ONE (18:39)
--- NOTE | 2021-08-11 18:39 | Emergency Department Note ---
Impression & Plan AMS (altered mental status), Hypertensive urgency ED Provider Note NAME: IVAN CLEMENT AGE: 70 SEX: F : 1950 ARRIVES VIA: Walk-In INFORMANT: Patient, daughter ED PROVIDER(S): Diaz Conner DO CHIEF COMPLAINT: Confusion HPI: Patient is a 70-year-old female with a past medical history of hypertension, hyperlipidemia and diabetes on Metformin presents the ER for confusion. They believe that started initially 2 to 3 hours ago but the patient's grandson was over earlier in the day noticed that she was confused. There is no clear last known well time at this point. Patient denies any headache or change in vision. No chest pain or shortness of breath. No nausea, vomiting, or diarrhea. No dysuria, urgency, or frequency. Her long-term memory is fairly intact but she cannot remember anything which occurred today. She does not believe that she took her medications that she normally takes them at night but cannot recall. ROS: See above HPI for pertinent positives & negatives. A total of 10 systems reviewed and were otherwise negative. PAST MEDICAL HISTORY:See Below PAST SURGICAL HISTORY:See Below FAMILY HISTORY:See Below SOCIAL HISTORY:See Below HOME MEDICATIONS:See Below ALLERGIES:See Below VITALS:See Below PHYSICAL EXAMINATION: GENERAL: Sitting up in bed, alert, well appearing, well nourished, no distress, non-toxic EYE EXAM: normal conjunctiva. PERRL and EOM's intact. OROPHARYNX: no exudate, no erythema, lips, buccal mucosa, and tongue normal and mucous membranes are moist NECK: supple, no nuchal rigidity, no adenopathy, non-tender LUNGS: Clear to auscultation. Normal chest wall mechanics HEART: no murmurs, S1 normal and S2 normal ABDOMEN: abdomen soft, non-tender, normo-active bowel sounds, no masses, no rebound or guarding. BACK: Back is symmetrical on inspection and there is no deformity, no midline tenderness, no CVA tenderness. SKIN: no rashes and no bruising UPPER EXTREMITIES: upper extremities are grossly normal. LOWER EXTREMITIES: No pitting edema. NEURO EXAM: Oriented to person, place but not year, cranial nerves II-XII intact, normal speech, no weakness of arms, no weakness of legs. No drift. Finger to nose intact. Gross sensation intact. MEDICAL DECISION MAKING: Patient is a 70-year-old female who presents the ER for confusion. She has issues with her short-term memory but long-term memory is intact. She has no other complaints at this time other than some urinary discomfort. IV was established blood was obtained. Systolic blood pressures were in the low 200s. Uncertain of last known well. Not a candidate for TPA. Labs show no significant leukocytosis or anemia. INR unremarkable. BMP with slightly elevated calcium. LFTs bilirubin was unremarkable. Troponin was negative. Covid negative. CTA of the head and neck were unremarkable. Patient was nelson aron bedside. Discussed with [facility] and they agreed with the presentation patient would need an MRI and would decrease the blood pressure to the 170s. Patient was given a dose of labetalol. She was updated bedside and admitted for further work-up. Question if this is secondary to hypertensive emergency versus transient global amnesia and hypertensive urgency. Triage Nursing notes reviewed. Limited review of prior medical records performed Vital Signs: reviewed and remarkable for HTN, tachy Differential diagnosis: Differential diagnoses includes but is not limited to toxic, metabolic, infectious, traumatic, cardiac, neurologic, hematologic, psychiatric and inflammatory etiologies. ER treatment provided: See below Diagnostics interpreted by me: ECG: Ventricularly paced rhythm 92 Left axis QTC 534 Cardiac Monitoring: An order was placed for continuous cardiac monitoring. The monitor shows a rate of 90 with sinus rhythm. Laboratory studies: As stated above and show below. Imaging studies: CT angios of the head and neck as described above Consultation(s): Discussed with [facility] neurology Discussed with hospitalist for further evaluation Procedures: none Past Med/Surg History Medical History (Updated 08/12/21 @ 00:36 by Diaz Conner DO) Cardiac pacemaker Complete heart block Hypothyroidism Menopause Post-menopausal atrophic vaginitis RBBB (right bundle branch block) Second degree AV block, Mobitz type II Surgical History H/O section H/O colonoscopy Due 2021 H/O umbilical hernia repair H/O wisdom tooth extraction History of tonsillectomy and adenoidectomy Family History Aunt Breast cancer Maternal Father Hx of CABG Grandmother (Maternal) Colorectal cancer Mother Diabetes Denies family history of Ovarian cancer Social History (Updated 06/29/20 @ 09:51 by Maia Galarza) Smoking Status: Never smoker Age Started Using Tobacco: 21; Years Smoked: 6; Hx Alcohol Use: Yes Hx Substance Use: No Preferred Language: Belarusian Feels Safe at Home: Yes Dental Care, Regularly: Yes Seatbelt Use: always Sunscreen Use: Yes Allergies Allergies Allergy/AdvReac Type Severity Reaction Status Date / Time acetaminophen [From Percocet] Allergy Unknown Unknown Verified 08/11/21 18:29 nifedipine Allergy Unknown TACHYCARDIA Verified 08/11/21 18:29 oxycodone AdvReac Mild VOMITING Verified 08/11/21 18:29 Home Meds Home Medications Medication Instructions Recorded Confirmed amlodipine 10 mg tablet 10 mg PO DAILY 03/14/20 08/11/21 atorvastatin 40 mg tablet 40 mg PO DAILY 03/14/20 08/11/21 citalopram 20 mg tablet 20 mg PO DAILY 03/14/20 08/11/21 fenofibrate nanocrystallized 48 mg 48 mg PO DAILY 03/14/20 08/11/21 tablet labetalol 100 mg tablet 100 mg PO BID 03/14/20 08/11/21 levothyroxine 125 mcg tablet 125 mcg PO DAILY 03/14/20 08/11/21 lorazepam 0.5 mg tablet 0.5 mg PO BID PRN 03/14/20 08/11/21 losartan 25 mg tablet 25 mg PO DAILY 03/14/20 08/11/21 metformin 1,000 mg tablet 1,000 mg PO BID 03/14/20 08/11/21 insulin glargine 100 unit/mL (3 10 unit SUBCUT QPM 06/29/20 08/11/21 mL) subcutaneous pen (Basaglar KwikPen U-100 Insulin) nystatin 100,000 unit/gram topical 1 applic TOPICAL TID PRN g 04/30/21 08/11/21 powder nystatin-triamcinolone 100,000 1 applic TOPICAL BID PRN g 04/30/21 08/11/21 unit/g-0.1 % topical cream Results & Data (ED) Vital Signs Vital Signs - 24 hr 08/11/21 18:18 08/11/21 18:28 08/11/21 18:30 Temperature 36.4 C L Temperature Source Temporal Artery Scan Pulse Rate 114 H 116 H 96 H Pulse Rate from SpO2 Sensor 102 H Respiratory Rate 18 16 19 Respiratory Effort / Characteristics Non-Labored Respiratory Depth Normal Respiratory Pattern Regular Blood Pressure 180/88 H 225/118 H Blood Pressure Mean 118 153 Pulse Oximetry 98 99 Oxygen Delivery Method Room Air Sepsis Recent Fever Within 48 Hours No Sepsis New/Unexplained Change in Mental Status No Sepsis Action Taken by Nursing No Action Required 08/11/21 18:48 08/11/21 18:50 08/11/21 19:00 Temperature Temperature Source Pulse Rate 83 73 98 H Pulse Rate from SpO2 Sensor 98 H 108 H Respiratory Rate 23 16 21 Respiratory Effort / Characteristics Respiratory Depth Respiratory Pattern Blood Pressure 196/132 H 202/115 H Blood Pressure Mean 153 144 Pulse Oximetry 97 96 98 Oxygen Delivery Method Sepsis Recent Fever Within 48 Hours Sepsis New/Unexplained Change in Mental Status Sepsis Action Taken by Nursing 08/11/21 19:31 08/11/21 20:30 08/11/21 21:00 Temperature Temperature Source Pulse Rate 88 88 88 Pulse Rate from SpO2 Sensor 89 Respiratory Rate 14 17 14 Respiratory Effort / Characteristics Respiratory Depth Respiratory Pattern Blood Pressure 180/101 H 185/112 H 183/112 H Blood Pressure Mean 127 136 135 Pulse Oximetry 97 98 95 Oxygen Delivery Method Room Air Sepsis Recent Fever Within 48 Hours Sepsis New/Unexplained Change in Mental Status Sepsis Action Taken by Nursing 08/11/21 21:20 08/11/21 22:00 08/11/21 22:20 Temperature Temperature Source Pulse Rate 85 91 H 91 H Pulse Rate from SpO2 Sensor 85 92 H 92 H Respiratory Rate 14 17 15 Respiratory Effort / Characteristics Respiratory Depth Respiratory Pattern Blood Pressure 200/101 H 171/96 H Blood Pressure Mean 134 121 Pulse Oximetry 95 95 95 Oxygen Delivery Method Room Air Sepsis Recent Fever Within 48 Hours Sepsis New/Unexplained Change in Mental Status Sepsis Action Taken by Nursing 08/11/21 22:30 08/11/21 22:40 Temperature Temperature Source Pulse Rate 89 88 Pulse Rate from SpO2 Sensor 90 87 Respiratory Rate 18 19 Respiratory Effort / Characteristics Respiratory Depth Respiratory Pattern Blood Pressure 173/100 H Blood Pressure Mean 124 Pulse Oximetry 93 95 Oxygen Delivery Method Sepsis Recent Fever Within 48 Hours Sepsis New/Unexplained Change in Mental Status Sepsis Action Taken by Nursing Laboratory Data Result diagrams: 08/11/21 18:38 08/11/21 18:38 Lab Results 08/11/21 08/11/21 08/11/21 Range/Units 18:38 18:38 18:38 WBC 8.87 (4.8-10.8) K/uL RBC 4.44 (4.2-5.4) M/uL Hgb 13.7 (12.0-16.0) g/dL POC Hgb (12.0-16.0) g/dl Hct 40.9 (37-47) % POC Hct (37-47) % MCV 92.1 (80-100) fL MCH 30.9 (25-34) pg MCHC 33.5 (32-36) g/dL RDW Std Deviation 43.8 (36.4-46.3) fL RDW Coeff of Daljit 13.1 (11.5-14.5) % Plt Count 368 (130-400) K/uL MPV 9.0 (7.4-10.4) fL Immature Gran % (Auto) 0.3 % Neut % (Auto) 61.4 % Lymph % (Auto) 24.9 % Wilkinson % (Auto) 11.4 % Eos % (Auto) 1.9 % Baso % (Auto) 0.1 % Neut # (Auto) 5.44 (1.4-6.5) K/uL Lymph # (Auto) 2.21 (1.2-3.4) K/uL Wilkinson # (Auto) 1.01 H (0.11-0.59) K/uL Eos # (Auto) 0.17 (0-0.5) K/uL Baso # (Auto) 0.01 (0-0.2) K/uL Immature Gran # (Auto) 0.03 H (0.00-0.02) K/uL PT 10.4 (9.0-12.0) Seconds INR 1.0 (0.9-1.1) APTT 27.7 (21.0-31.0) Seconds PTT Ratio 1.1 POC Sodium (135-144) mmol/L Sodium 133 L (136-145) mmol/L POC Potassium (3.3-5.0) mmol/L Potassium 3.9 (3.5-5.1) mmol/L POC Chloride (101-112) mmol/L Chloride 101 (98-107) mmol/L Carbon Dioxide 25 (21-32) mmol/L POC Total CO2 (24-31) mmol/L Anion Gap 7.0 (3-11) POC Anion Gap (16-25) mmol/L POC BUN (7-18) mg/dl BUN 19 H (7-18) mg/dl Creatinine 1.21 H (0.6-1.2) mg/dl POC Creatinine (0.6-1.3) mg/dl Est Cr Clr Drug Dosing 43.4 ml/min Est GFR ( Amer) 52.9 ml/min Est GFR (Non-Af Amer) 45.6 ml/min BUN/Creatinine Ratio 15.4 (10-20) Glucose 106 H (70-99) mg/dl POC Glucose (other) (70-99) mg/dl Calcium 10.2 H (8.5-10.1) mg/dl POC Ioniz Calcium Lorie (1.12-1.32) mmol/l Magnesium 1.6 L (1.8-2.4) mg/dl Total Bilirubin 0.5 (0.2-1) mg/dl AST 25 (15-37) U/L ALT 30 (12-78) Alkaline Phosphatase 80 (45-117) U/L Troponin I < 0.015 (0-0.045) ng/ml Total Protein 8.7 H (6.4-8.2) gm/dl Albumin 4.6 (3.4-5.0) gm/dl Globulin 4.1 H (2.5-4.0) gm/dl Albumin/Globulin Ratio 1.1 (0.9-2) Specimen Hemolysis SARS-CoV-2, RNA, NAAT (NEGATIVE) 08/11/21 08/11/21 Range/Units 18:42 19:40 WBC (4.8-10.8) K/uL RBC (4.2-5.4) M/uL Hgb (12.0-16.0) g/dL POC Hgb 14.6 (12.0-16.0) g/dl Hct (37-47) % POC Hct 43 (37-47) % MCV (80-100) fL MCH (25-34) pg MCHC (32-36) g/dL RDW Std Deviation (36.4-46.3) fL RDW Coeff of Daljit (11.5-14.5) % Plt Count (130-400) K/uL MPV (7.4-10.4) fL Immature Gran % (Auto) % Neut % (Auto) % Lymph % (Auto) % Wilkinson % (Auto) % Eos % (Auto) % Baso % (Auto) % Neut # (Auto) (1.4-6.5) K/uL Lymph # (Auto) (1.2-3.4) K/uL Wilkinson # (Auto) (0.11-0.59) K/uL Eos # (Auto) (0-0.5) K/uL Baso # (Auto) (0-0.2) K/uL Immature Gran # (Auto) (0.00-0.02) K/uL PT (9.0-12.0) Seconds INR (0.9-1.1) APTT (21.0-31.0) Seconds PTT Ratio POC Sodium 137 (135-144) mmol/L Sodium (136-145) mmol/L POC Potassium 3.6 (3.3-5.0) mmol/L Potassium (3.5-5.1) mmol/L POC Chloride 99 L (101-112) mmol/L Chloride (98-107) mmol/L Carbon Dioxide (21-32) mmol/L POC Total CO2 23 L (24-31) mmol/L Anion Gap (3-11) POC Anion Gap 19.0 (16-25) mmol/L POC BUN 19 H (7-18) mg/dl BUN (7-18) mg/dl Creatinine (0.6-1.2) mg/dl POC Creatinine 1.0 (0.6-1.3) mg/dl Est Cr Clr Drug Dosing ml/min Est GFR ( Amer) ml/min Est GFR (Non-Af Amer) ml/min BUN/Creatinine Ratio (10-20) Glucose (70-99) mg/dl POC Glucose (other) 106 H (70-99) mg/dl Calcium (8.5-10.1) mg/dl POC Ioniz Calcium Lorie 1.26 (1.12-1.32) mmol/l Magnesium (1.8-2.4) mg/dl Total Bilirubin (0.2-1) mg/dl AST (15-37) U/L ALT (12-78) Alkaline Phosphatase (45-117) U/L Troponin I (0-0.045) ng/ml Total Protein (6.4-8.2) gm/dl Albumin (3.4-5.0) gm/dl Globulin (2.5-4.0) gm/dl Albumin/Globulin Ratio (0.9-2) Specimen Hemolysis SARS-CoV-2, RNA, NAAT NEGATIVE (NEGATIVE) Administered Medications Discontinued Medications Aspirin (Aspirin Chew 324 Mg) 324 mg PO NOW STA Stop: 08/11/21 19:22 Last Admin: 08/11/21 19:32 Dose: 324 mg Documented by: [id number] Sodium Chloride (Nss) 500 mls @ 999 mls/hr IV .Q31M ONE Stop: 08/11/21 19:09 Last Infusion: 08/11/21 19:53 Dose: 0 mls/hr Documented by: [id number] Admin: 08/11/21 19:07 Dose: 999 mls/hr Documented by: [id number] Magnesium Sulfate/Dextrose (Magnesium Sulfate / D5w) 1 gm in 100 mls @ 50 mls/hr IV Q2H STA Stop: 08/11/21 22:38 Last Infusion: 08/11/21 22:48 Dose: 0 mls/hr Documented by: [id number] Admin: 08/11/21 21:35 Dose: 100 mls/hr Documented by: [id number] Thiamine HCl 500 mg/ Sodium (Chloride) 55 mls @ 220 mls/hr IV NOW STA Stop: 08/11/21 20:40 Last Infusion: 08/11/21 21:53 Dose: 0 mls/hr Documented by: [id number] Admin: 08/11/21 21:35 Dose: 220 mls/hr Documented by: [id number] Ioversol (Optiray 320 125ml) 120 ml IV ONCE ONE Stop: 08/11/21 18:50 Last Admin: 08/11/21 18:50 Dose: 1 ml Documented by: [id number] Labetalol HCl (Labetalol Hcl Iv 5 Mg/Ml 20ml) 10 mg IV NOW STA Stop: 08/11/21 19:22 Last Admin: 08/11/21 19:32 Dose: 10 mg Documented by: [id number] Cosigned by: [id number] Ondansetron HCl (Ondansetron Inj 2 Mg/Ml 2 Ml Vial) 4 mg IV NOW STA Stop: 08/11/21 19:26 Last Admin: 08/11/21 19:31 Dose: 4 mg Documented by: [id number] Imaging Data Radiologist's Impression: Chest X-Ray 08/11/21 18:35 XR chest 1V portable HISTORY: Stroke Like Symptoms COMPARISON: Chest 03/14/2020. FINDINGS: There is a left-sided dual-chamber pacemaker. The heart remains mildly enlarged. The lungs are clear. No pleural effusions. No pneumothorax. IMPRESSION: No acute process. ACT 112: Negative or not required by law. Electronically signed by: Cali Fernandes M.D. 08/11/2021 7:[address] 08/11/21 18:[address] DOSE: 1075.57 mGy.cm HISTORY: Stroke Like Symptoms TECHNIQUE: Multiaxial CT images of the head were performed without the use of intravenous contrast. Automated exposure control was utilized for this study. A dose lowering technique was utilized adhering to the principles of ALARA. Comparison: Head CT 03/26/2015. Findings: The paranasal sinuses and mastoid air cells are clear. The calvarium and skull base are intact. The ventricles and sulci are within normal limits. There is no mass, hematoma, midline shift, or acute infarct. Impression: No acute intracranial abnormality. ACT 112: Negative or not required by law. Electronically signed by: Cali Fernandes M.D. 08/11/2021 6:56 PM Head CTA 08/11/21 18:35 CTA ANGIOGRAPHY OF THE HEAD CLINICAL HISTORY: Stroke Like Symptoms COMPARISON STUDY: No previous studies for comparison. TECHNIQUE: Helical axial images of the head were obtained following uneventful intravenous administration of 120 cc of Optiray. Sagittal and coronal reconstructions were viewed as well as maximal intensity projections on an independent 3-D workstation. Automated exposure control was utilized for the study. A dose lowering technique was utilized adhering to the principles of ALARA. FINDINGS: Please note that the head CT will be reported separately. No acute intracranial hemorrhage, midline shift or mass effect is present. Brain volume is normal. Ventricular system is normal. Basal cisterns are patent. There are no extra axial collections. There is mild plaque within the bilateral cavernous carotids. There is no stenosis. No central vessel occlusion is present. The bilateral M1, M2, A1 and A2 segments are patent. Posterior circulation is intact. No dissection within the intracranial vessels. IMPRESSION: No central vessel occlusion. No intracranial aneurysm. ACT 112: Negative or not required by law. Electronically signed by: Darin Delgadillo M.D. 08/11/2021 7:03 PM Neck CTA 08/11/21 18:35 CT ANGIOGRAPHY OF THE NECK WITH CONTRAST CLINICAL HISTORY: Stroke Like Symptoms COMPARISON STUDY: No previous studies for comparison. Technique: CT angiography of the carotid and vertebral arteries was obtained using Optiray and 3D reconstruction on an independent workstation. NASCET crite malick was utilized. Automated exposure control was utilized for the study. A dose lowering technique was utilized adhering to the principles of ALARA. Findings: A few tiny nodules within the upper lungs measure up to 3 mm. These are probably benign. No cervical lymphadenopathy is present. There is no acute cervical spine fracture. The bilateral common carotid, cervical internal carotid and vertebral arteries are patent. There is no stenosis within these vessels. There is minimal plaque within the bilateral carotid bifurcations. There is no dissection within the major vessels of the neck. No aneurysm is present. IMPRESSION: No stenosis or dissection within the bilateral common carotid, cervical internal carotid or vertebral arteries. ACT 112: Negative or not required by law. Electronically signed by: Darin Delgadillo M.D. 08/11/2021 6:58 PM Discharge Plan Visit Data Chief Complaint: Stroke/CVA Symptoms Stated Complaint: STROKE SYMPTOMS ED Provider: Diaz Conner Discharge Problem: AMS (altered mental status), Hypertensive urgency Forms Stand Alone Forms: [facility] Prescriptions Prescriptions: No Action nystatin 100,000 unit/gram powder 1 applic topical TID PRN (Reason: Rash) RF: 0 nystatin-triamcinolone 100,000-0.1 unit/g-% cream 1 applic topical BID PRN (Reason: Rash) RF: 0 Basaglar KwikPen U-100 Insulin 100 unit/mL (3 mL) insulin pen 10 unit subcut QPM RF: 0 atorvastatin 40 mg tablet 40 mg PO DAILY RF: 0 citalopram 20 mg tablet 20 mg PO DAILY RF: 0 lorazepam 0.5 mg tablet 0.5 mg PO BID PRN (Reason: Anxiety) RF: 0 amlodipine 10 mg tablet 10 mg PO DAILY RF: 0 metformin 1,000 mg tablet 1,000 mg PO BID RF: 0 levothyroxine 125 mcg tablet 125 mcg PO DAILY RF: 0 losartan 25 mg tablet 25 mg PO DAILY RF: 0 labetalol 100 mg tablet 100 mg PO BID RF: 0 fenofibrate nanocrystallized 48 mg tablet 48 mg PO DAILY RF: 0 Referrals Referrals: Yariel Gayle MD [Primary Care Provider] - Discharge Problem: AMS (altered mental status) Qualifiers: Altered mental status type: unspecified Qualified Code(s): R41.82 - Altered mental status, unspecified
[2021-08-11] MEDS ORDERED: OPTIRAY 320 125ml IV ONE (18:49)
[2021-08-11 18:50] LABS: Basophils # (auto) 0.01 K/uL (0-0.2); Basophils % (auto) 0.1 %; Eosinophils # (auto) 0.17 K/uL (0-0.5); Eosinophils % (auto) 1.9 %; Hematocrit (blood only) 40.9 % (37-47); Hemoglobin 13.7 g/dL (12.0-16.0); Immature Granulocytes # (auto) 0.03 K/uL (0.00-0.02); Immature Granulocytes % (auto) 0.3 %; Lymphocytes # (auto) 2.21 K/uL (1.2-3.4); Lymphocytes % (auto) 24.9 %; Mean Corpuscular Hemoglobin 30.9 pg (25-34); Mean Corpuscular Hgb Conc 33.5 g/dL (32-36); Mean Corpuscular Volume 92.1 fL (80-100); Monocytes # (auto) 1.01 K/uL (0.11-0.59); Monocytes % (auto) 11.4 %; Neutrophils # (auto) 5.44 K/uL (1.4-6.5); Neutrophils % (auto) 61.4 %; Platelet Count 368 K/uL (130-400); RDW Coefficient of Variation 13.1 % (11.5-14.5); RDW Standard Deviation 43.8 fL (36.4-46.3); Red Blood Count 4.44 M/uL (4.2-5.4); White Blood Count 8.87 K/uL (4.8-10.8)
[2021-08-11 18:53] LABS: iSTAT Hemoglobin 14.6 g/dl (12.0-16.0); iSTAT Ionized Calcium 1.26 mmol/l (1.12-1.32); iSTAT Potassium 3.6 mmol/L (3.3-5.0)
--- NOTE | 2021-08-11 18:57 | CT Scan Report ---
HEAD CT NONCONTRAST CT DOSE: 1075.57 mGy.cm HISTORY: Stroke Like Symptoms TECHNIQUE: Multiaxial CT images of the head were performed without the use of intravenous contrast. A utomated exposure control was utilized for this study. A dose lowering technique was utilized adheri ng to the principles of ALARA. Comparison: Head CT 03/26/2015. Findings: The paranasal sinuses and mastoid air cells are clear. The calvarium and skull base are int act. The ventricles and sulci are within normal limits. There is no mass, hematoma, midline shift, or acute infarct. Impression: No acute intracranial abnormality. ACT 112: Negative or not required by law. Electronically signed by: Cali Fernandes M.D. 08/11/2021 6:56 PM
--- NOTE | 2021-08-11 18:59 | CT Scan Report ---
CT ANGIOGRAPHY OF THE NECK WITH CONTRAST CLINICAL HISTORY: Stroke Like Symptoms COMPARISON STUDY: No previous studies for comparison. Technique: CT angiography of the carotid and vertebral arteries was obtained using Optiray and 3D rec onstruction on an independent workstation. NASCET criteria was utilized. Automated exposure control was utilized for the study. A dose lowering technique was utilized adhering to the principles of ALA RA. Findings: A few tiny nodules within the upper lungs measure up to 3 mm. These are probably benign. No cervical lymphadenopathy is present. There is no acute cervical spine fracture. The bilateral common carotid, cervical internal carotid and vertebral arteries are patent. There is no stenosis within th [place] vessels. There is minimal plaque within the bilateral carotid bifurcations. There is no dissectio n within the major vessels of the neck. No aneurysm is present. IMPRESSION: No stenosis or dissection within the bilateral common carotid, cervical internal carotid or vertebral arteries. ACT 112: Negative or not required by law. Electronically signed by: Darin Delgadillo M.D. 08/11/2021 6:58 PM
[2021-08-11 19:01] LABS: Partial Thromboplastin Ratio 1.1; Partial Thromboplastin Time 27.7 Seconds (21.0-31.0); Prothrombin Time 10.4 Seconds (9.0-12.0)
--- NOTE | 2021-08-11 19:05 | CT Scan Report ---
CTA ANGIOGRAPHY OF THE HEAD CLINICAL HISTORY: Stroke Like Symptoms COMPARISON STUDY: No previous studies for comparison. TECHNIQUE: Helical axial images of the head were obtained following uneventful intravenous administr ation of 120 cc of Optiray. Sagittal and coronal reconstructions were viewed as well as maximal inten sity projections on an independent 3-D workstation. Automated exposure control was utilized for the study. A dose lowering technique was utilized adhering to the principles of ALARA. FINDINGS: Please note that the head CT will be reported separately. No acute intracranial hemorrhage, midline shift or mass effect is present. Brain volume is normal. Ventricular system is normal. Basal cisterns are patent. There are no extra axial collections. There is mild plaque within the bilateral cavernous carotids. There is no stenosis. No central vessel occlusion is present. The bilateral M1, M2, A1 and A2 segments are patent. Posterior circulation is intact. No dissection within the intracra nial vessels. IMPRESSION: No central vessel occlusion. No intracranial aneurysm. ACT 112: Negative or not required by law. Electronically signed by: Darin Delgadillo M.D. 08/11/2021 7:03 PM
[2021-08-11 19:12] LABS: Alanine Aminotransferase 30 (12-78); Albumin Level 4.6 gm/dl (3.4-5.0); Aspartate Aminotransferase 25 U/L (15-37); BUN Creatinine Ratio 15.4 (10-20); Blood Urea Nitrogen 19 mg/dl (7-18); Calcium 10.2 mg/dl (8.5-10.1); Carbon Dioxide 25 mmol/L (21-32); Chloride 101 mmol/L (98-107); Creatinine Clr Calc Pharmacy 43.4 ml/min; Est GFR (African American) 52.9 ml/min; Est GFR (Non-African American) 45.6 ml/min; Glucose 106 mg/dl (70-99); Magnesium 1.6 mg/dl (1.8-2.4); Potassium 3.9 mmol/L (3.5-5.1); Sodium 133 mmol/L (136-145)
--- NOTE | 2021-08-11 19:13 | XRay Report ---
XR chest 1V portable HISTORY: Stroke Like Symptoms COMPARISON: Chest 03/14/2020. FINDINGS: There is a left-sided dual-chamber pacemaker. The heart remains mildly enlarged. The lungs are clear. No pleural effusions. No pneumothorax. IMPRESSION: No acute process. ACT 112: Negative or not required by law. Electronically signed by: Cali Fernandes M.D. 08/11/2021 7:11 PM
[2021-08-11 19:14] LABS: Albumin Globulin Ratio 1.1 (0.9-2); Alkaline Phosphatase 80 U/L (45-117); Bilirubin,Total 0.5 mg/dl (0.2-1); Globulin 4.1 gm/dl (2.5-4.0); Total Protein 8.7 gm/dl (6.4-8.2); Troponin I < 0.015 ng/ml (0-0.045)
[2021-08-11] MEDS ORDERED: LABETALOL HCL IV 5 MG/ML 20ML IV STA (19:21)
[2021-08-11] MEDS ORDERED: ASPIRIN CHEW 324 MG PO STA (19:21)
[2021-08-11] MEDS ORDERED: ONDANSETRON INJ 2 MG/ML 2 ML VIAL IV STA (19:25)
[2021-08-11] MEDS ORDERED: MAGNESIUM SULFATE / D5W 1 GM/100 ML BAG IV STA (20:39)
[2021-08-11] MEDS ORDERED: THIAMINE HCL 500 MG in SODIUM CHLORIDE 0.9% 50 ML IV STA (20:39)
--- NOTE | 2021-08-11 20:48 | History & Physical Report ---
Date of Service August 11, 2021 Assessment & Plan (1) Amnesia: Plan: 70yo female with history of DM, HTN, HLP presenting with amnesia - does not recollect the last two days. No focal deficits. Has a son that had episode of TGA in the past. -Imaging thus far unremarkable -MRI brain ordered - her device is pacer compatible but requires a Medtronic tech to assist with imaging. Cardiology evaluation requested to assist with pacer settings during MRI. -Neuro checks -Dysphagia screening -Fall precautions -MRI Brain ordered -Thiamine 500mg IV x 1 -Check UA - awaiting specimen (2) Diabetes: Plan: Chronic. On glargine 10u qPM -Lantus 5u BID -ISS (3) Hypertension: Plan: Elevated. Now improving, presently 157/81 -COntineu Amlodipine, Labetalol, Losartan -Monitor (4) Cardiac pacemaker: Plan: V-pacing noted -Cardiology requested to assist with MRI imaging per Medtronic (5) Hypothyroidism: Plan: Chronic -Continue Synthroid History of Present Illness Chief Complaint: amnesia Primary Care Provider: Yariel Gayle MD Emma Coon is a pleasant 70yo female with history of HTN, DM, HLP. History of high degree heart block s/p placement of Medtronic pacer. She presents today with change in mental status and amnesia. Daughter and close friend are at bedside and assist with history. Patient spoke with her daughter on the phone this AM around 10:00 and appeared to be in her usual state of health. Patient's grandson visited her this afternoon around 13:00 and noted that she was slightly confused. She reportedly heated up the same cup of coffee several times and was asking the same questions. Patient's called the daughter later in the afternoon because patient was more confused. She was unable to recall why the [employer] tree was up, who the president was. Upon further questioning, patient does not recall anything about yesterday or today. No focal deficits, slurred speech, gait disturbance, visual disturbance noted. Possibly urinating more than usual. Also with mild nausea and occasional diz ziness. Otherwise, no complaints. ER Course: [facility] [place] TeleStroke contacted, ASA, Labetalol, Zofran Allergies Allergy/AdvReac Type Severity Reaction Status Date / Time acetaminophen [From Percocet] Allergy Unknown Unknown Verified 08/11/21 18:29 nifedipine Allergy Unknown TACHYCARDIA Verified 08/11/21 18:29 oxycodone AdvReac Mild VOMITING Verified 08/11/21 18:29 Home Medications Medication Instructions Recorded Confirmed Type amlodipine 10 mg tablet 10 mg PO DAILY 03/14/20 08/11/21 History atorvastatin 40 mg tablet 40 mg PO DAILY 03/14/20 08/11/21 History citalopram 20 mg tablet 20 mg PO DAILY 03/14/20 08/11/21 History fenofibrate nanocrystallized 48 mg 48 mg PO DAILY 03/14/20 08/11/21 History tablet labetalol 100 mg tablet 100 mg PO BID 03/14/20 08/11/21 History levothyroxine 125 mcg tablet 125 mcg PO DAILY 03/14/20 08/11/21 History lorazepam 0.5 mg tablet 0.5 mg PO BID PRN 03/14/20 08/11/21 History losartan 25 mg tablet 25 mg PO DAILY 03/14/20 08/11/21 History metformin 1,000 mg tablet 1,000 mg PO BID 03/14/20 08/11/21 History insulin glargine 100 unit/mL (3 10 unit SUBCUT QPM 06/29/20 08/11/21 History mL) subcutaneous pen (Basaglar KwikPen U-100 Insulin) nystatin 100,000 unit/gram topical 1 applic TOPICAL TID PRN g 04/30/21 08/11/21 History powder nystatin-triamcinolone 100,000 1 applic TOPICAL BID PRN g 04/30/21 08/11/21 History unit/g-0.1 % topical cream Past Med/Surg History Medical History (Updated 08/12/21 @ 05:24 by Nora Herron DO) Cardiac pacemaker Complete heart block Hypothyroidism Menopause Post-menopausal atrophic vaginitis RBBB (right bundle branch block) Second degree AV block, Mobitz type II Surgical History H/O section H/O colonoscopy Due 2021 H/O umbilical hernia repair H/O wisdom tooth extraction History of tonsillectomy and adenoidectomy Family History Aunt Breast cancer Maternal Father Hx of CABG Grandmother (Maternal) Colorectal cancer Mother Diabetes Denies family history of Ovarian cancer Social History (Updated 06/29/20 @ 09:51 by Maia Galarza) Smoking Status: Former smoker Age Started Using Tobacco: 21; Years Smoked: 6; Hx Alcohol Use: No Hx Substance Use: No Preferred Language: Mexican Communication Ability: Effective [employer] Required: No Beliefs That Will Affect Care: None Current Living Situation: Spouse Other Information That Helps Us Care for You: No Feels Safe at Home: Yes Safety Concerns: Feels Safe At This Time Dental Care, Regularly: Yes Seatbelt Use: always Sunscreen Use: Yes Assistive Devices: Glasses Review of Systems Review of Systems: All systems reviewed & are unremarkable except as noted in HPI & below Physical Exam Physical Exam: General: patient resting comfortably, NAD, non-toxic in appearance, AA&O to person and location NOT date or situation Skin: warm, dry, intact, no rashes or lesions HEENT: NC/AT, PERRL, EOMI, anicteric sclera, conjunctiva without injection, external ear normal to inspection and nontender, nares patent, moist mucus membranes, dentition intact, no oropharyngeal lesions, neck supple, trachea midline, no LAD, no thyromegaly, no JVD Heart: +S1/S2, regular, no m/r/g Lungs: equal air entry bilaterally, no rales/rhonchi/wheezes Abd: +BS, soft, NT/ND, no masses/organomegaly/ascites Ext: warm, 2+ pulses in UE/LE bilaterally, no clubbing/cyanosis or edema Neuro: AA&O x 2, speech clear and fluent, CN II - XII grossly intact, sensation to light touch intact, MS 5/5 in UE/LE bilaterally, sfaczl-rh-afhh and rsfg-rj-gbga intact, gait reportedly intact as well although not independently tested Results & Data Results & Data ([facility]) Vital Signs (Past 12 Hours) Vital Signs Temp Pulse Resp BP Pulse Ox 08/11/21 20:30 88 17 185/112 H 98 08/11/21 19:31 88 14 180/101 H 97 08/11/21 19:00 98 H 21 202/115 H 98 08/11/21 18:50 73 16 96 08/11/21 18:48 83 23 196/132 H 97 08/11/21 18:30 96 H 19 08/11/21 18:28 116 H 16 225/118 H 99 08/11/21 18:18 36.4 C L 114 H 18 180/88 H 98 Laboratory Results Laboratory Results WBC 8.87 K/uL (4.8-10.8) 08/11/21 18:38 RBC 4.44 M/uL (4.2-5.4) 08/11/21 18:38 Hgb 13.7 g/dL (12.0-16.0) 08/11/21 18:38 POC Hgb 14.6 g/dl (12.0-16.0) 08/11/21 18:42 Hct 40.9 % (37-47) 08/11/21 18:38 POC Hct 43 % (37-47) 08/11/21 18:42 MCV 92.1 fL (80-100) 08/11/21 18:38 MCH 30.9 pg (25-34) 08/11/21 18:38 MCHC 33.5 g/dL (32-36) 08/11/21 18:38 RDW Std Deviation 43.8 fL (36.4-46.3) 08/11/21 18:38 RDW Coeff of Daljit 13.1 % (11.5-14.5) 08/11/21 18:38 Plt Count 368 K/uL (130-400) 08/11/21 18:38 MPV 9.0 fL (7.4-10.4) 08/11/21 18:38 Immature Gran % (Auto) 0.3 % 08/11/21 18:38 Neut % (Auto) 61.4 % 08/11/21 18:38 Lymph % (Auto) 24.9 % 08/11/21 18:38 Young % (Auto) 11.4 % 08/11/21 18:38 Eos % (Auto) 1.9 % 08/11/21 18:38 Baso % (Auto) 0.1 % 08/11/21 18:38 Neut # (Auto) 5.44 K/uL (1.4-6.5) 08/11/21 18:38 Lymph # (Auto) 2.21 K/uL (1.2-3.4) 08/11/21 18:38 Young # (Auto) 1.01 K/uL (0.11-0.59) H 08/11/21 18:38 Eos # (Auto) 0.17 K/uL (0-0.5) 08/11/21 18:38 Baso # (Auto) 0.01 K/uL (0-0.2) 08/11/21 18:38 Immature Gran # (Auto) 0.03 K/uL (0.00-0.02) H 08/11/21 18:38 PT 10.4 Seconds (9.0-12.0) 08/11/21 18:38 INR 1.0 (0.9-1.1) 08/11/21 18:38 APTT 27.7 Seconds (21.0-31.0) 08/11/21 18:38 PTT Ratio 1.1 08/11/21 18:38 POC Sodium 137 mmol/L (135-144) 08/11/21 18:42 Sodium 133 mmol/L (136-145) L 08/11/21 18:38 POC Potassium 3.6 mmol/L (3.3-5.0) 08/11/21 18:42 Potassium 3.9 mmol/L (3.5-5.1) 08/11/21 18:38 POC Chloride 99 mmol/L (101-112) L 08/11/21 18:42 Chloride 101 mmol/L (98-107) 08/11/21 18:38 Carbon Dioxide 25 mmol/L (21-32) 08/11/21 18:38 POC Total CO2 23 mmol/L (24-31) L 08/11/21 18:42 Anion Gap 7.0 (3-11) 08/11/21 18:38 POC Anion Gap 19.0 mmol/L (16-25) 08/11/21 18:42 POC BUN 19 mg/dl (7-18) H 08/11/21 18:42 BUN 19 mg/dl (7-18) H 08/11/21 18:38 Creatinine 1.21 mg/dl (0.6-1.2) H 08/11/21 18:38 POC Creatinine 1.0 mg/dl (0.6-1.3) 08/11/21 18:42 Est Cr Clr Drug Dosing 43.4 ml/min 08/11/21 18:38 Est GFR ( Amer) 52.9 ml/min 08/11/21 18:38 Est GFR (Non-Af Amer) 45.6 ml/min 08/11/21 18:38 BUN/Creatinine Ratio 15.4 (10-20) 08/11/21 18:38 Glucose 106 mg/dl (70-99) H 08/11/21 18:38 POC Glucose 120 mg/dl (70-99) H 08/12/21 04:47 POC Glucose (other) 106 mg/dl (70-99) H 08/11/21 18:42 Calcium 10.2 mg/dl (8.5-10.1) H 08/11/21 18:38 POC Ioniz Calcium Lorie 1.26 mmol/l (1.12-1.32) 08/11/21 18:42 Phosphorus 2.9 mg/dl (2.5-4.9) 08/11/21 18:38 Magnesium 1.6 mg/dl (1.8-2.4) L 08/11/21 18:38 Total Bilirubin 0.5 mg/dl (0.2-1) 08/11/21 18:38 AST 25 U/L (15-37) 08/11/21 18:38 ALT 30 (12-78) 08/11/21 18:38 Alkaline Phosphatase 80 U/L (45-117) 08/11/21 18:38 Troponin I < 0.015 ng/ml (0-0.045) 08/11/21 18:38 Total Protein 8.7 gm/dl (6.4-8.2) H 08/11/21 18:38 Albumin 4.6 gm/dl (3.4-5.0) 08/11/21 18:38 Globulin 4.1 gm/dl (2.5-4.0) H 08/11/21 18:38 Albumin/Globulin Ratio 1.1 (0.9-2) 08/11/21 18:38 TSH 6.100 uIu/ml (0.300-4.500) H 08/11/21 18:38 Free T4 1.28 ng/dl (0.8-1.6) 08/11/21 18:38 Specimen Hemolysis 08/11/21 18:38 SARS-CoV-2, RNA, NAAT NEGATIVE (NEGATIVE) 08/11/21 19:40 Impressions Chest X-Ray 08/11/21 18:35 XR chest 1V portable HISTORY: Stroke Like Symptoms COMPARISON: Chest 03/14/2020. FINDINGS: There is a left-sided dual-chamber pacemaker. The heart remains mildly enlarged. The lungs are clear. No pleural effusions. No pneumothorax. IMPRESSION: No acute process. ACT 112: Negative or not required by law. Electronically signed by: Cali Fernandes M.D. 08/11/2021 7:[address] 08/11/21 18:[address] DOSE: 1075.57 mGy.cm HISTORY: Stroke Like Symptoms TECHNIQUE: Multiaxial CT images of the head were performed without the use of intravenous contrast. Automated exposure control was utilized for this study. A dose lowering technique was utilized adhering to the principles of ALARA. Comparison: Head CT 03/26/2015. Findings: The paranasal sinuses and mastoid air cells are clear. The calvarium and skull base are intact. The ventricles and sulci are within normal limits. There is no mass, hematoma, midline shift, or acute infarct. Impression: No acute intracranial abnormality. ACT 112: Negative or not required by law. Electronically signed by: Cali Fernandes M.D. 08/11/2021 6:56 PM Head CTA 08/11/21 18:35 CTA ANGIOGRAPHY OF THE HEAD CLINICAL HISTORY: Stroke Like Symptoms COMPARISON STUDY: No previous studies for comparison. TECHNIQUE: Helical axial images of the head were obtained following uneventful intravenous administration of 120 cc of Optiray. Sagittal and coronal reconstruc tions were viewed as well as maximal intensity projections on an independent 3-D workstation. Automated exposure control was utilized for the study. A dose lowering technique was utilized adhering to the principles of ALARA. FINDINGS: Please note that the head CT will be reported separately. No acute intracranial hemorrhage, midline shift or mass effect is present. Brain volume is normal. Ventricular system is normal. Basal cisterns are patent. There are no extra axial collections. There is mild plaque within the bilateral cavernous carotids. There is no stenosis. No central vessel occlusion is present. The bilateral M1, M2, A1 and A2 segments are patent. Posterior circulation is intact. No dissection within the intracranial vessels. IMPRESSION: No central vessel occlusion. No intracranial aneurysm. ACT 112: Negative or not required by law. Electronically signed by: Darin Delgadillo M.D. 08/11/2021 7:03 PM Neck CTA 08/11/21 18:35 CT ANGIOGRAPHY OF THE NECK WITH CONTRAST CLINICAL HISTORY: Stroke Like Symptoms COMPARISON STUDY: No previous studies for comparison. Technique: CT angiography of the carotid and vertebral arteries was obtained using Optiray and 3D reconstruction on an independent workstation. NASCET criteria was utilized. Automated exposure control was utilized for the study. A dose lowering technique was utilized adhering to the principles of ALARA. Findings: A few tiny nodules within the upper lungs measure up to 3 mm. These are probably benign. No cervical lymphadenopathy is present. There is no acute cervical spine fracture. The bilateral common carotid, cervical internal carotid and vertebral arteries are patent. There is no stenosis within these vessels. There is minimal plaque within the bilateral carotid bifurcations. There is no dissection within the major vessels of the neck. No aneurysm is present. IMPRESSION: No stenosis or dissection within the bilateral common carotid, cervical internal carotid or vertebral arteries. ACT 112: Negative or not required by law. Electronically signed by: Darin Delgadillo M.D. 08/11/2021 6:58 PM Code Status & VTE Plan VTE Prophylaxis Plan VTE Prophylaxis will be ordered: Yes PG Care Time/CCT Total # of Minutes Spent Total Time Spent with Patient: Total time spent is greater than 50% in coordination of care (as documented) at patient's floor/unit and/or counseling patient: Coding Level of Care Code INT OBSERVATION CARE 50M LVL 2 Diagnoses Diabetes E11.9 Hypertension I10 Cardiac pacemaker Z95.0 Amnesia R41.3 Hypothyroidism E03.9
[2021-08-12] MEDS ORDERED: DEXTROSE 50% 50 ML SYRINGE IV PRN (02:40)
[2021-08-12] MEDS ORDERED: GLUCAGON FOR INJ 1 MG VIAL SQ PRN (02:40)
[2021-08-12] MEDS ORDERED: GLUCOSE 10 TABS/TUBE PO PRN (02:40)
[2021-08-12] MEDS ORDERED: GLUCOSE 40% GEL 15 GM TUBE PO PRN (02:40)
[2021-08-12] MEDS ORDERED: CARBOHYDRATES FOR HYPOGLYCEMIA PO PRN (02:40)
[2021-08-12 03:27] LABS: Phosphorus 2.9 mg/dl (2.5-4.9)
[2021-08-12 03:50] LABS: T4 Free Thyroxine 1.28 ng/dl (0.8-1.6)
[2021-08-12] MEDS: INSULIN GLARGINE SOLOSTAR 100 UNITS/ML 3 ML PEN SC SCH ×2 (04:48→08:38)
[2021-08-12] MEDS: INSULIN ASPART 100 UNITS/ML 3 ML PEN SC SCH ×3 (04:49→12:13)
[2021-08-12] MEDS: LABETALOL HCL 100 MG TAB PO SCH ×2 (04:50→08:36)
[2021-08-12] MEDS ORDERED: LEVOTHYROXINE SODIUM 125 MCG TABLET PO SCH (06:30)
[2021-08-12 07:07] LABS: Appearance Urine Clear (Clear); Bacteria Urine Automated Negative (Negative); Bilirubin Urine Negative (Negative); Blood Urine Negative (Negative); Cast Urine Automated 0 /lpf (0-5); Color Urine Yellow; Epithelial Cell Urine Auto 0-5 /lpf (0-5); Glucose Urine UA Negative (Negative); Ketones Urine Negative (Negative); Leukocyte Esterase Urine Negative (Negative); Nitrite Urine Negative (Negative); RBC Urine Automated 0-4 /hpf (0-4); Specific Gravity Urine 1.019 (1.000-1.030); Urobilinogen Urine Negative (Negative); WBC Urine Automated 0 /hpf (0-5)
[2021-08-12 07:18] LABS: Protein Urine Trace (Negative)
[2021-08-12] MEDS ORDERED: MAGNESIUM SULFATE / D5W 1 GM/100 ML BAG IV ONE (08:23)
[2021-08-12] MEDS ORDERED: FENOFIBRATE NANOCRYSTALLIZED 48 MG TABLET PO SCH (09:00)
[2021-08-12] MEDS ORDERED: CITALOPRAM 20 MG TAB PO SCH (09:00)
[2021-08-12] MEDS ORDERED: LOSARTAN POTASSIUM 25 MG TAB PO SCH (09:00)
[2021-08-12] MEDS ORDERED: amLODIPine BESYLATE 5 MG TAB PO SCH (09:00)
[2021-08-12] MEDS ORDERED: ATORVASTATIN 40 MG TAB PO SCH (09:00)
[2021-08-12 10:03] LABS: BUN Creatinine Ratio 14.7 (10-20); Calcium 9.6 mg/dl (8.5-10.1); Creatinine Clr Calc Pharmacy 46.3 ml/min; Est GFR (African American) 56.8 ml/min; Potassium 4.1 mmol/L (3.5-5.1)
--- NOTE | 2021-08-12 13:00 | Electrocardiogram Report ---
Test Reason : Blood Pressure : / mmHG Vent. Rate : 092 BPM Atrial Rate : 092 BPM P-R Int : 192 ms QRS Dur : 180 ms QT Int : 432 ms P-R-T Axes : 050 -61 083 degrees QTc Int : 534 ms Atrial-sensed ventricular-paced rhythm in a pattern of bigeminy Abnormal ECG When compared with ECG of 14-MAR-2020 06:47, Electronic ventricular pacemaker has replaced Sinus rhythm Confirmed by Judah Helm ([id number]) on 08/12/2021 1:00:08 PM Referred By: REFERRED SELF Confirmed By:Judah Helm
--- NOTE | 2021-08-12 14:15 | Discharge Summary ---
Date of Service August 12, 2021 Admission HPI Per Admitting Provider Emma Coon is a pleasant 70yo female with history of HTN, DM, HLP. History of high degree heart block s/p placement of Medtronic pacer. She presents today with change in mental status and amnesia. Daughter and close friend are at bedside and assist with history. Patient spoke with her daughter on the phone this AM around 10:00 and appeared to be in her usual state of health. Patient's grandson visited her this afternoon around 13:00 and noted that she was slightly confused. She reportedly heated up the same cup of coffee several times and was asking the same questions. Patient's called the daughter later in the afternoon because patient was more confused. She was unable to recall why the [employer] was up, who the president was. Upon further questioning, patient does not recall anything about yesterday or today. No focal deficits, slurred speech, gait disturbance, visual disturbance noted. Possibly urinating more than usual. Also with mild nausea and occasional dizziness. Otherwise, no complaints. ER Course: [facility] TeleStroke contacted, ASA, Labetalol, Zofran Admission Exam Per Admitting Provider General: patient resting comfortably, NAD, non-toxic in appearance, AA&O to person and location NOT date or situation Skin: warm, dry, intact, no rashes or lesions HEENT: NC/AT, PERRL, EOMI, anicteric sclera, conjunctiva without injection, external ear normal to inspection and nontender, nares patent, moist mucus membranes, dentition intact, no oropharyngeal lesions, neck supple, trachea mid line, no LAD, no thyromegaly, no JVD Heart: +S1/S2, regular, no m/r/g Lungs: equal air entry bilaterally, no rales/rhonchi/wheezes Abd: +BS, soft, NT/ND, no masses/organomegaly/ascites Ext: warm, 2+ pulses in UE/LE bilaterally, no clubbing/cyanosis or edema Neuro: AA&O x 2, speech clear and fluent, CN II - XII grossly intact, sensation to light touch intact, MS 5/5 in UE/LE bilaterally, kwsfxl-hi-kofc and biyh-lf-xoxl intact, gait reportedly intact as well although not independently tested Principal Diagnosis Transient Global Amnesia of unknown etiology Discharge Exam GENERAL: 70 yo WD/WN WF. Pleasant, NAD. LUNGS: Clear to auscultation bilaterally. No accessory muscle use. No W/R/R. CARDIOVASCULAR: Regular rate and rhythm. No M/G/R. No JVD. ABDOMEN: Soft, non-tender and non-distended. No palpable masses. Bowel sounds normoactive x 4 quad. EXTREMITIES: No edema. Non-tender. Peripheral pulses +2/4. NEUROLOGIC: A&O x3. No focal neurological deficits. CN II-XII grossly intact. PSYCHIATRIC: Cooperative. Appropriate mood and affect. SKIN: Warm, dry, intact. No rashes or lesions. Discharge Data Allergies Allergy/AdvReac Type Severity Reaction Status Date / Time acetaminophen [From Percocet] Allergy Unknown Unknown Verified 08/11/21 18:29 nifedipine Allergy Unknown TACHYCARDIA Verified 08/11/21 18:29 oxycodone AdvReac Mild VOMITING Verified 08/11/21 18:29 Consultations H&P notes that cardiology was consulted d/t pacemaker, however, this was not ordered. Ordered Studies 08/11/21 18:38 08/12/21 08:40 Chest X-Ray 08/11/21 18:35 XR chest 1V portable HISTORY: Stroke Like Symptoms COMPARISON: Chest 03/14/2020. FINDINGS: There is a left-sided dual-chamber pacemaker. The heart remains mildly enlarged. The lungs are clear. No pleural effusions. No pneumothorax. IMPRESSION: No acute process. ACT 112: Negative or not required by law. Electronically signed by: Cali Fernandes M.D. 08/11/2021 7:[address] 08/11/21 18:[address] DOSE: 1075.57 mGy.cm HISTORY: Stroke Like Symptoms TECHNIQUE: Multiaxial CT images of the head were performed without the use of intravenous contrast. Automated exposure control was utilized for this study. A dose lowering technique was utilized adhering to the principles of ALARA. Comparison: Head CT 03/26/2015. Findings: The paranasal sinuses and mastoid air cells are clear. The calvarium and skull base are intact. The ventricles and sulci are within normal limits. There is no mass, hematoma, midline shift, or acute infarct. Impression: No acute intracranial abnormality. ACT 112: Negative or not required by law. Electronically signed by: Cali Fernandes M.D. 08/11/2021 6:56 PM Head CTA 08/11/21 18:35 CTA ANGIOGRAPHY OF THE HEAD CLINICAL HISTORY: Stroke Like Symptoms COMPARISON STUDY: No previous studies for comparison. TECHNIQUE: Helical axial images of the head were obtained following uneventful intravenous administration of 120 cc of Optiray. Sagittal and coronal reconstructions were viewed as well as maximal intensity projections on an independent 3-D workstation. Automated exposure control was utilized for the study. A dose lowering technique was utilized adhering to the principles of ALARA. FINDINGS: Please note that the head CT will be reported separately. No acute intracranial hemorrhage, midline shift or mass effect is present. Brain volume is normal. Ventricular system is normal. Basal cisterns are patent. There are no extra axial collections. There is mild plaque within the bilateral cavernous carotids. There is no stenosis. No central vessel occlusion is present. The bilateral M1, M2, A1 and A2 segments are patent. Posterior circulation is intact. No dissection within the intracranial vessels. IMPRESSION: No central vessel occlusion. No intracranial aneurysm. ACT 112: Negative or not required by law. Electronically signed by: Darin Delgadillo M.D. 08/11/2021 7:03 PM Neck CTA 08/11/21 18:35 CT ANGIOGRAPHY OF THE NECK WITH CONTRAST CLINICAL HISTORY: Stroke Like Symptoms COMPARISON STUDY: No previous studies for comparison. Technique: CT angiography of the carotid and vertebral arteries was obtained using Optiray and 3D reconstruction on an independent workstation. NASCET criteria was utilized. Automated exposure control was utilized for the study. A dose lowering technique was utilized adhering to the principles of ALARA. Findings: A few tiny nodules within the upper lungs measure up to 3 mm. These are probably benign. No cervical lymphadenopathy is present. There is no acute cervical spine fracture. The bilateral common carotid, cervical internal carotid and vertebral arteries are patent. There is no stenosis within these vessels. There is minimal plaque within the bilateral carotid bifurcations. There is no dissection within the major vessels of the neck. No aneurysm is present. IMPRESSION: No stenosis or dissection within the bilateral common carotid, cervical internal carotid or vertebral arteries. ACT 112: Negative or not required by law. Electronically signed by: Darin Delgadillo M.D. 08/11/2021 6:58 PM Hemoglobin A1c last checked in July was 7.4% Lipids checked at that time as well Total cholesterol 145 Triglycerides 176 LDL 80 HDL 42 TSH 12/ = 6.1 Free T4 = 1.28 Hospital Course (1) Amnesia: 70yo female with history of DM, HTN, HLP presenting with amnesia - does not recollect the last two days. No focal deficits. Has a son that had episode of TGA in the past. -Imaging thus far unremarkable -MRI brain ordered - her device is pacer compatible but requires a Medtronic tech to assist with imaging. Cardiology evaluation requested to assist with pacer settings during MRI. -Neuro checks have been WNL -Dysphagia screening--passed -Fall precautions ordered -MRI Brain ordered; however, no job superintendent to assist with process on weekend since pt has a pacemaker. Will arrange as outpatient. -Thiamine 500mg IV x 1 given by admitting team -UA unremarkable (2) Diabetes: Chronic. On glargine 10u qPM as well as Metformin. -Lantus 5u BID -ISS -Metformin held, which will need to be held x 48 hours since receiving IV contrast (3) Hypertension: Elevated. Last read today is 167/83 (from 11am) -Continue Amlodipine, Labetalol, Losartan -BP still seems slightly uncontrolled, would consider increasing Losartan. -This decision could be made as an outpatient. (4) Cardiac pacemaker: V-pacing noted, safe for MRI but settings will need adjusted by [employer] rep at time of MRI (5) Hypothyroidism: Chronic -Continue Synthroid -TSH up slightly but T4 WNL, no adjustment in Synthroid is necessary Patient is doing well clinically, would like to be discharged. No need to hold for inpatient MRI. Will make arrangements through nurse navigator as an outpatient. Ultimately, it's not going to change treatment. Would recommend daily Aspirin 81mg. Follow up with PCP within 1 week. She is medically stable for discharge. Total Time Total Time Spent Total Time Spent (In Minutes): >30 minutes Discharge Plan Discharge Items Patient Disposition: Home - Self-Care Reason For Visit: AMNESIA Discharge Diagnosis: Amnesia Activity: Resume your previous activity Non-emergency contact: Primary Care Provider Call non-emergency contact if: your symptoms worsen Follow-up/Referrals: Yariel Gayle MD [Primary Care Provider] - (Please call your primary care doctor for a hospital follow up appointment.) Diet: Carb Consistent or DM2 Addtl Attending Provider Instructions: 1. Recommend daily Aspirin 81mg. 2. MRI of brain to be completed as outpatient. You will be contacted as when this has been re-scheduled. 3. Follow up with PCP within 1 week of discharge. 4. Do NOT resume Metformin until the morning of 08/14 Pending Studies at Discharge: No Stand-Alone Forms: [facility], Smoking Cessation Medications and DC Order Prescriptions: Continued nystatin 100,000 unit/gram powder 1 applic topical TID PRN (Reason: Rash) RF: 0 nystatin-triamcinolone 100,000-0.1 unit/g-% cream 1 applic topical BID PRN (Reason: Rash) RF: 0 Basaglar KwikPen U-100 Insulin 100 unit/mL (3 mL) insulin pen 10 unit subcut QPM RF: 0 atorvastatin 40 mg tablet 40 mg PO DAILY RF: 0 citalopram 20 mg tablet 20 mg PO DAILY RF: 0 lorazepam 0.5 mg tablet 0.5 mg PO BID PRN (Reason: Anxiety) RF: 0 amlodipine 10 mg tablet 10 mg PO DAILY RF: 0 metformin 1,000 mg tablet 1,000 mg PO BID RF: 0 levothyroxine 125 mcg tablet 125 mcg PO DAILY RF: 0 losartan 25 mg tablet 25 mg PO DAILY RF: 0 labetalol 100 mg tablet 100 mg PO BID RF: 0 fenofibrate nanocrystallized 48 mg tablet 48 mg PO DAILY RF: 0 Discharge Orders: Discharge Order (Routine); Ordered 08/12/21 Ordered By: Mitra Boss Admission Data Admit Date/Time: 08/11/21 20:39 Attending Provider: Donn Greenfield Admit Provider: Nora Herron Primary Care Provider: Yariel Gayle Other Providers: Nora Herron Other Interventions: Discharge Summary Assessment (RN) Last Done: 08/12/21 16:30 Supervising Physician Co-Signing Physician Notes Patient seen and examined on the day of discharge. I agree with the discharge summary by Mitra WOOD. I have reviewed the chart including labs, imaging and plans for discharge. patient doing well, no focal neuro deficits, only issue is the time of about 2 hours where she cannot recall anything consistent with amnesia will get MRI brain as outpatient, does not want to wait until tomorrow - Transient global amnesia: resolved, will get MRI brain outpatient, unlikely to happen again interestingly, her son had an episode in the past Coding Level of Care Code D/C DAY MANAGEMENT >30 MINS Diagnoses Amnesia R41.3 Diabetes E11.9 Hypertension I10 Cardiac pacemaker Z95.0 Hypothyroidism E03.9
== END 2021-08-12 16:59 | disposition home or self-care (01) | DRG 71 ==
LOC: ED 18:12 → 2N 20:39 → INTOOBSV 20:39 → SUATTDRO 20:39 → 2N 08-12 02:28

== ENCOUNTER 2022-10-25 06:08 | Observation (INO) ==
--- NOTE | 2022-09-17 11:55 | PAT Medication Instructions ---
Medication Instructions Date of Service September 17, 2022 Home Medications Medication Instructions Recorded metformin 1,000 mg 24 hr 1,000 mg PO BID #180 tabs 03/18/22 tablet,extended release pen needle, diabetic 31 gauge x #100 ea 07/16/22 1/4" (Easy Comfort Pen [place]) Li Silva #1 ea 07/22/22 insulin glargine 100 unit/mL (3 18 unit (0.18 mL) subcut QPM #20 mL 09/16/22 mL) subcutaneous pen (Lantus Solostar U-100 Insulin) nystatin 100,000 unit/gram topical powder 1 applic topical TID PRN nystatin-triamcinolone 100,000 unit/g-0.1 % topical cream 1 applic topical BID PRN labetalol 100 mg tablet 200 mg PO BID lorazepam 0.5 mg tablet 0.5 mg PO HS PRN metformin 1,000 mg 24 hr tablet,extended release 1,000 mg PO BID pen needle, diabetic 31 gauge x 1/4" (Easy Comfort Pen [place]) Li Silva amlodipine 10 mg tablet 10 mg PO QPM atorvastatin 80 mg tablet 80 mg PO QPM chlorthalidone 25 mg tablet 25 mg PO QAM citalopram 20 mg tablet 20 mg PO QPM levothyroxine 125 mcg tablet 125 mcg PO QAM losartan 25 mg tablet 25 mg PO QPM insulin glargine 100 unit/mL (3 mL) subcutaneous pen (Lantus Solostar U-100 Insulin) 18 unit (0.18 mL) subcut QPM STOP taking 24 hours before surgery nystatin 100,000 unit/gram topical powder 1 applic topical TID PRN nystatin-triamcinolone 100,000 unit/g-0.1 % topical cream 1 applic topical BID PRN DO NOT take the morning of surgery metformin 1,000 mg 24 hr tablet,extended release 1,000 mg PO BID chlorthalidone 25 mg tablet 25 mg PO QAM Take morning of surgery With a small sip of water, OTHERWISE NOTHING TO EAT OR DRINK AFTER MIDNIGHT: labetalol 100 mg tablet 200 mg PO BID levothyroxine 125 mcg tablet 125 mcg PO QAM Take evening before surgery labetalol 100 mg tablet 200 mg PO BID lorazepam 0.5 mg tablet 0.5 mg PO HS PRN(if needed) metformin 1,000 mg 24 hr tablet,extended release 1,000 mg PO BID amlodipine 10 mg tablet 10 mg PO QPM atorvastatin 80 mg tablet 80 mg PO QPM citalopram 20 mg tablet 20 mg PO QPM losartan 25 mg tablet 25 mg PO QPM insulin glargine 100 unit/mL (3 mL) subcutaneous pen (Lantus Solostar U-100 Insulin) 18 unit (0.18 mL) subcut QPM Other Notes If you have any questions please call us at [phone] or [phone] or [phone] or [phone]
--- NOTE | 2022-09-24 09:14 | Anesthesiology Consultation ---
Date of Service September 24, 2022 Assessment & Plan (1) Encounter for pre-operative examination: Chart Review Chart Review: Acceptable Risk for Surgery and Patient seen in Pre Admission Testing - Check BSG AM DOS - Pt is NOT a Same Day Joint candidate due to comorbidities Per PAT appt on 09/24/22, patient denies any recent travel or large group activities. Pt had the flu around 08/30/22 (did not test herself for Covid). Residual cough improved. Pt tested for Covid at PAT appt on 09/24/22= negative. Pt is NOT vaccinated for Covid. . Educated on importance of using Covid precautions one week prior to surgery Pt last seen by EP 04/29/22= patient seen for history of complete heart block and prior implantation of dual chamber permanent pacemaker. Seen for routine evaluation. Normal device function with 99% ventricular pacing since last interrogation. Mild to moderate MR on ECHO in May 2021- asymptomatic- will repeat ECHO in one year. HTN- BP elevated in the office but well controlled with home monitoring. Follow up in one year. Teaching & Discussion Pre-Anesthesia Teaching/Discussion Notes: Instructed NPO after midnight before surgery,except medications with 15 cc of water. Medication instructions provided according to the [facility] guidelines. History Surgery Operation Date: 10/25/22 09:50 Proposed Procedures p Left Total Knee Arthroplasty - Jason Herron MD Height/Weight Height: 5 ft 2 in Weight: 83.1 kg Allergies Allergy/AdvReac Type Severity Reaction Status Date / Time acetaminophen [From Percocet] Allergy Unknown Vomiting Verified 09/24/22 09:34 nifedipine Allergy Unknown TACHYCARDIA Verified 09/13/22 09:43 oxycodone AdvReac Mild VOMITING Verified 09/13/22 09:43 Medications Home Medications Medication Instructions Recorded Confirmed Last Taken nystatin 100,000 unit/gram topical 1 applic topical TID PRN Rash 04/30/21 09/13/22 Unknown powder nystatin-triamcinolone 100,000 1 applic topical BID PRN Rash 04/30/21 09/13/22 Unknown unit/g-0.1 % topical cream labetalol 100 mg tablet 200 mg PO BID 03/18/22 09/13/22 08/08/22 10:00 lorazepam 0.5 mg tablet 0.5 mg PO HS PRN Anxiety 03/18/22 09/13/22 Unknown metformin 1,000 mg 24 hr 1,000 mg PO BID #180 tabs 03/18/22 09/13/22 08/06/22 tablet,extended release pen needle, diabetic 31 gauge x #100 ea 07/16/22 07/24/22 Unknown 09/11" (Easy Comfort Pen R[place]) Wheeled Walker #1 ea 07/22/22 07/24/22 Unknown amlodipine 10 mg tablet 10 mg PO QPM 07/29/22 09/13/22 08/06/22 atorvastatin 80 mg tablet 80 mg PO QPM 07/29/22 09/13/22 08/06/22 chlorthalidone 25 mg tablet 25 mg PO QAM 07/29/22 09/13/22 08/05/22 citalopram 20 mg tablet 20 mg PO QPM 07/29/22 09/13/22 08/05/22 levothyroxine 125 mcg tablet 125 mcg PO QAM 07/29/22 09/13/22 08/07/22 losartan 25 mg tablet 25 mg PO QPM 07/29/22 09/13/22 08/06/22 insulin glargine 100 unit/mL (3 18 unit (0.18 mL) subcut QPM #20 mL 09/16/22 Unknown mL) subcutaneous pen (Lantus Solostar U-100 Insulin) Past Medical History Medical History Anxiety CKD (chronic kidney disease), stage III Complete heart block S/p pacemaker placement Difficult intubation Reports she was told following 2nd umbilical hernia surgery @ [place] Glidescope used with 2013 umbilical hernia repair - was noted to be difficult intubation DM type 2 (diabetes mellitus, type 2) Glucose well controlled HLD (hyperlipidemia) HTN (hypertension) Hypothyroidism Mitral regurgitation Mild to moderate per 05/2021 ECHO RBBB (right bundle branch block) Transient global amnesia Hx 08/2021 Exercise / Class Metabolic Activity II 4-5 Yardwork/Stairs/Walk up hill (one flight of stairs - no chest pain or SOB ) Past Family History Family History Aunt Breast cancer Maternal Father Hx of CABG Grandmother (Maternal) Colorectal cancer Mother Diabetes Other No family history of adverse response to anesthesia Denies family history of Ovarian cancer Past Surgical History Surgical History Cardiac pacemaker Placed 2016 - -[facility] - checked monthly -- follows with Dr. Hair. H/O section x2 H/O colonoscopy 08/08/22 [facility] H/O umbilical hernia repair x2 H/O wisdom tooth extraction History of esophagogastroduodenoscopy (EGD) History of tonsillectomy and adenoidectomy Past Anesthesia History No Hx of Anesthesia Complications (with exception to difficult airway with 2012 umbilical hernia surgery ), Difficult Airway (2012 umbilical hernia surgery at [facility] ) and No Family Hx of Anesthesia Complications (with exception to father- possible difficult intubation (narrow airway)) History of PONV No Hx of PONV and No Hx of Motion Sickness Social History Smoking Status: Former smoker Do You Dip or Chew Tobacco: No Smoking End Date: quit at age 26 Hx Alcohol Use: Yes alcohol intake frequency: holidays/special occasions only Hx Substance Use: No substance use type: does not use Review of Systems Patient denies chest pain, shortness of breath, dyspnea on exertion, reflux, cough, wheezing, palpitations. No hx of seizures, stroke, [place], apnea/snoring. No hx of blood clots or blood transfusions Physical Exam Vital Signs VITALS BP 124/79 P 77 TEMP 98.3 SP02 96% RESP 16 Constitutional no acute distress ENMT Mouth: no TMJ clicking Thyromental Distance: < 3.5 Finger Breadths (2.5) Mallampati Class: III Permanent implants and crowns to side teeth and molars Neck neck extension not limited Respiratory normal respiratory effort; no respiratory distress Auscultation: lungs clear to auscultation bilaterally; no wheezes Cardiovascular Rate/Rhythm: regular rate and regular rhythm Heart Sounds: no murmur Vessels: no carotid bruit Musculoskeletal Spine: no pain with cervical ROM Extremities: extremities normal to inspection Psychiatric Orientation: alert Lab Results Anesthesia Preop Results Results Anesthesia Widget: WBC 7.52 K/ul (4.8-10.8) 09/24/22 Hgb 11.4 g/dl (12.0-16.0) L 09/24/22 Hct 33.3 % (34.1-44.9) L 09/24/22 Plt 289 K/uL (130-400) 09/24/22 Na 136 mmol/L (136-145) 09/24/22 K 3.7 mmol/L (3.5-5.1) 09/24/22 Cl 100 mmol/L (98-107) 09/24/22 CO2 30 mmol/L (21-32) 09/24/22 BUN 17 mg/dl (6-23) 09/24/22 Creat 1.00 mg/dl (0.6-1.2) 09/24/22 Glucose Level 147 mg/dl (70-99(Fasting)) H 09/24/22 PT 10.5 Seconds (9.0-12.0) 09/24/22 PTT 27.6 Seconds (21.0-31.0) 09/24/22 INR 1.0 (0.9-1.1) 09/24/22 HA1c 8.0 % (4.5-5.6) H 09/24/22 Blood Type AB Positive 09/24/22 Antibody Screen NEGATIVE 09/24/22 Testing Laboratory Results Mild anemia- PCP and surgeon's office informed- will leave to surgeon's discretion on how to proceed Electrocardiogram Date: 09/24/22 AV dual paced rhythm with prolonged AV conduction at 60 bpm Chest X-Ray Date: 09/24/22 Findings: + NAD FINDINGS: Cardiac silhouette is enlarged. Left subclavian pacer. Atherosclerosis of the aorta. Mild right hemidiaphragmatic elevation. No pneumothorax, pleural effusion, airspace consolidation or overt pulmonary edema. Degenerative changes of the shoulders and spine. Echocardiogram Date: 06/04/21 EF: 60-65% LV Function: normal RWMA: + none Other Findings: + LVH (mild/concentric ) LA and RA mildly dilated Mild to moderate MR Mild TR Other Testing Pacemaker check 09/11/22= Medtronic pacemaker. Battery longevity 4.5 years. AP 6.8%. 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 Normal device function. Some atrial ectopy of brief duration. No sustained episodes of atrial fibrillation. Brain MRI 08/15/21= No acute intracranial abnormality. No acute or subacute infarct. Neck CTA 08/11/21= No stenosis or dissection within the bilateral common carotid, cervical internal carotid or vertebral arteries. Head CTA 08/11/21= No central vessel occlusion. No intracranial aneurysm. COVID-19 Risk Screen Screening Information COVID-19 Screen Date: 09/24/22 Exposure 21 Days Family/Household +COVID Last 21 Days: No Exposure 10 Days Any COVID Exposure Last 10 Days: No Symptoms Last 10 Days Experienced COVID Sx Last 10 Days: No + COVID 0-90 Days COVID + in Last 0-90 Days: No Risk Plan COVID Risk Plan: No Risk Identified COVID Risk Plan Comment: Had flu around 08/30/22- did not Covid or flu test herself at the time- did have residual cough that recently resolved. Preop Covid testing done at [facility] appt 09/24/22= negative Patient Education COVID Preop Screening Education Complete: Yes
--- NOTE | 2022-10-19 10:01 | History and Physical Report ---
CHIEF COMPLAINT: Bilateral knee pain and discomfort, left side greater than right. HISTORY OF PRESENT ILLNESS: The patient is a 72-year-old female who presents for surgical treatment of her knees. She has got a long history of bilateral knee pain and discomfort that has gradually go tten worse over time. She has been through extensive conservative treatment including 5 months of th erapy, which helped a little bit. She has had various medicines, which have not helped so much and i njections, which have been only temporary relief only. Knees have been both bothering her quite a bi t. They are limiting her activities. The left side is worse than the right symptomatically. She wo uld like to proceed with knee replacement surgery. PAST MEDICAL HISTORY: Significant for: 1. 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 2. Elevated cholesterol. 3. Hypertension. 4. Diabetes. 5. Hypothyroidism. 6. Mild obesity. PAST SURGICAL HISTORY: Includes: 1. Cardiac pacemaker placement. 2. Umbilical hernia repair. 3. Oral surgery. 4. . 5. Tonsillectomy. ALLERGIES: NIFEDIPINE, OXYCODONE, WHICH CAUSES NAUSEA AND VOMITING. CURRENT MEDICATIONS: Include: 1. Amlodipine. 2. Atorvastatin. 3. Chlorthalidone. 4. Citalopram. 5. Insulin. 6. Labetalol. 7. Levothyroxine. 8. Losartan. 9. Lorazepam. 10. Metformin. 11. Nystatin. 12. Potassium chloride. SOCIAL HISTORY: A 72-year-old female. She is . Does not drink. No significant smoking hist ory. FAMILY HISTORY: Noncontributory. REVIEW OF SYSTEMS: Significant for diabetes, which is under questionable control. Denies any chest pain or shortness of breath. No history of DVT or PE. She does have a pacemaker in place. PHYSICAL EXAMINATION: GENERAL: Shows a pleasant middle-aged female but looks a little younger than her stated age. HEENT: Benign. NECK: Supple. No lymphadenopathy. LUNGS: Clear to auscultation. HEART: Has a regular rate and rhythm. ABDOMEN: Soft, nontender, nondistended. EXTREMITIES: Grossly neurovascularly intact except as follows. Examination of both knees revealed patient walks with a waddling gait. She has got varus alignment t o both knees. She is tender over the medial joint lines bilaterally. Range of motion is pretty symm etric with about 5 degrees short of full extension, 120 degrees of flexion. There is no instability on either side. No pain with hip motion. X-RAYS: Four views of both knees were reviewed which show advanced bilateral knee degenerative joint disease. She has got complete loss of medial joint space in both knees. She has got osteophytes me dially on both sides and subchondral sclerosis. They are about equal in severity on x-ray. ASSESSMENT: A 72-year-old white female with longstanding knee pain consistent with advanced knee art hritis, tricompartment disease. She has failed conservative measures and would like to proceed with left knee replacement. PLAN: We are going to proceed with a left knee replacement. The risks and benefits of this procedur e were explained to the patient include but not limited to DVT, PE, , infection, neurological in jury, vascular injury, bleeding problem, pain, limited range of motion, stiffness, failure to relieve her symptoms, incomplete relief of symptoms, need for further surgery in the future. She is going t o try and get her blood glucoses under better control. She is planning to be discharged to home and go to outpatient therapy at [facility]. Her spouse can assist in her care. She will take her labetalol and levothyroxine the morning of surgery and hold any metformin. Job ID: [id number]
[~2022-10-25 06:08] MED LIST changes: +ACETAMINOPHEN 500 MG TAB PO SCH; -AMLO-114 PO; +BUPIVACAINE LIPOSOME/PF 266 MG, BUPIVACAINE/EPINEPHRINE 50 ML, SODIUM CHLORIDE 0.9% 30 ... INFIL SCH; -CITA20TA9 PO; +CeleBREX 200 MG CAP PO SCH; +FAMOTIDINE 20 MG TAB PO SCH; -GLIP5TAB11 PO; -LBT/100 PO; -LEVO125T72 PO; -LORA-741 PO; -LOSA1TAB PO; -LPT40 PO; +LR 500ML BOLUS, THEN 15ML/HR IV SCH; +LR 60ML/HR IV SCH; -METF1000 PO; +METOCLOPRAMIDE HCL 10 MG TABLET PO SCH; -PROB1TAB16 PO; +TRANEXAMIC ACID 1,000 MG **IV Intra-op IV SCH; -VNTHFA/IN INH; +ceFAZolin 2000MG 2,000 MG/15 ML SYR IV SCH
[2022-10-25] MEDS ORDERED: BUPIVACAINE 0.5 % 5 MG/1 ML PF 10ML VIAL ONE (06:29)
[2022-10-25] MEDS ORDERED: ROPIVACAINE 0.5% 5 MG/ML 30 ML VIAL ONE (06:29)
--- NOTE | 2022-10-25 07:01 | History & Physical Bridge Note ---
Date of Service October 25, 2022 History & Physical Bridge Note I have examined the patient, reviewed the History & Physical and in the interval since the performance of the History & Physical I have noted the following changes of clinical significance: no changes noted
[2022-10-25] MEDS ORDERED: PROPOFOL IV EMULSION 10 MG/ML 20 ML VIAL IV ONE ×4 (07:46→10:48)
[2022-10-25] MEDS ORDERED: LIDOCAINE 2% MPF LOCAL 5 ML VIAL INFIL ONE (07:46)
[2022-10-25] MEDS ORDERED: MIDAZOLAM HCL 1 MG/ML 2ML VIAL ONE ×2 (07:47→08:51)
[2022-10-25] MEDS ORDERED: fentaNYL citrate 100 MCG/2 ML VIAL ONE (07:47)
[2022-10-25] MEDS ORDERED: ATROPINE SULFATE 0.1 MG/ML 10ML SYR IV PRN (08:56)
[2022-10-25] MEDS ORDERED: fentaNYL citrate 100 MCG/2 ML VIAL IV PRN (08:56)
[2022-10-25] MEDS ORDERED: ePHEDrine sulfate 50 MG/ML AMP IV PRN (08:56)
[2022-10-25] MEDS ORDERED: BUPIVACAINE/EPINEPHRINE 0.25% 1:200,000 30 ML VIAL ONE (09:10)
[2022-10-25] MEDS ORDERED: BUPIVACAINE LIPOSOME 1.3% 266 MG/20 ML VIAL ONE (09:10)
[2022-10-25] MEDS ORDERED: SODIUM CHLORIDE 0.9% PF 50 ML VIAL ONE (09:10)
[2022-10-25] MEDS ORDERED: PHENYLEPHRINE HCL 10 MG/ML VIAL ONE (10:36)
--- NOTE | 2022-10-25 11:18 | Operative Report ---
PG Post Operative Report Pre & Post Diagnosis Operation Date: 10/25/22 08:50 Pre-Op Diagnosis: Left Knee Degenerative Joint Disease Post-Op Diagnosis: Left Knee Degenerative Joint Disease I identified the patient and participated in the time-out.: Yes Procedure Operation Date: 10/25/22 08:50 Actual Procedures p Left Total Knee Arthroplasty(Left) - Jason Herron MD Surgeon Jason Herron MD Bench [employer]eler Rubio Subramanian PA-C Estimated Blood Loss 50 Findings Consistent with Post-Op Diagnosis Operative findings advanced left knee tricompartment DJD. She had grade 4 [id number]-[id number] disease in all 3 compartments most severe in the medial side. Osteophytes in all 3 compartments. Moderate-sized joint effusion. Specimens Left knee symptomatology Drains none Anesthesia Type Spinal MAC Complications none Indications Patient is a 72-year-old female said a long history of bilateral knee pain discomfort describes gotten worse over time. She been through extensive conservative treatments became less successful over time. X-rays show advanced knee arthritis of both knees. She elected proceed with left total knee arthroplasty. Description of Procedure Operative implants consist of: 1 Biomet Vanguard size 62.5 left posterior stabilized femoral component. 2. Biomet size 67 tibial tray. 3. 14 mm posterior stabilized polyethylene insert. 4. 28 x 8 all poly patella. The patient was taken the operating, identified, placed on the operating table supine position with all contractors were properly padded. IV antibiotics were by anesthesia team. Spinal anesthetic been implemented in the holding area along with an abductor canal block. A Briscoe catheter was placed in sterile fashion the left atrium was then placed in the left lower extremities and pre pped and draped in usual sterile fashion. The left leg was elevated exsanguinated with use of an Esmarch and the tourniquet was set at 300 mmHg. An anterior posterior left knee was then performed to longitudinal incision centered over the patella. Sharp dissection was carried through subcutaneous tissue down the extensor mechanism. A medial parapatellar arthrotomy incision was made. Some subperiosteal dissection was carried out medially. The fat pad was resected from Neath patella tendon. Lateral patellofemoral ligament was released. Patella subluxated laterally the knee was flexed with the osteophytes taken off distal femur. The ACL and PCL were then released from distal femur and the tibia subluxated anteriorly. The external tibial alignment jig was then placed in the interface the tibia and adjusted 14 mm medially. Proximal tibial cut was made remove about 2 mm of bone from the medial side. Some osteophytes taken off medial and posterior medially. Tibia sized to a size 67. Attention drawn the femur. The distal femur was entered with the sharp drill. Intramedullary guide was placed. A left 5 degree valgus cutting guide was placed. This femoral cutting block was pinned in place. Distal femoral cut was made to take an additional 3 mm of bone off distal femur. The femur was then sized to a size 62.5. The AP cutting block was pinned parallel to the epicondylar axis which was 5 degrees of external rotation. The anterior cut, anterior chamfer, posterior cut, posterior chamfer cuts were made. The box cutting guide was placed in just slight lateral box cut was made. The knee was flexed with the remnants of the medial and lateral menisci were excised. The osteophytes were taken off the posterior aspect the femur. Trial femoral component was placed. Tibial tray was pinned in maximum external rotation and the drill and stem punch were used to create defect in proximal tibia for the tibial tray. Knee was then trialed and the 14 mm insert fit most appropriately. Attention drawn the patella. The patella was cleaned of all soft tissues. Patella thickness measured 20 mm in thickness was cut down to 12. Sized a size 28 patella. The lug holes were drilled for the 28 patella. Lateral osteophytes removed. Patella button was placed. Knee was taken through range of motion and the patella tracked nicely with no thumbs test. Attention drawn to place the permanent components. Components were removed. Bone plug was placed in the distal femur limit blood loss. Double batch Palacos G cement was mixed. A Biomet size 62.5 left posterior stabilized femoral component, size 67 tibial tray, a 14 mm posterior stabilized polyethylene insert, and a 28 x 8 all Paller patella then cemented in place. New spreadout in full extension till cement hardened. Final cement check was then performed. Pericapsular tissues were injected with total 100 cc of combination of 20 of Exparel, 30 cc normal saline, 50 cc of quarter percent Marcaine with epinephrine. Patient did receive 1 g tranexamic acid. The tourniquet was then let down for final turn time 55 minutes hemostasis reduced electrocautery. Extensor excellent closed with combination 1 PDS suture #1 Vicryl suture in [id number] fashion. Extensor mechanism checked found to be intact the subcutaneous tissue then closed with 2 Dexon suture in a buried erupted fashion skin was closed skin timothy. Legs then cleaned and dried and sterile dressed with Xeroform, 4 fours, sterile cast padding, Inderjit bandage were applied. Patient then transferred to the recovery room in stable condition. Patient tolerated procedure well and there were no complications. Rubio Subramanian, my physician medical clerical assistant, was present for the entire procedure. His assistance was essential and required for appropriate patient positioning, prepping and draping, surgical exposure, performing the technical details of the operation, placement the implants, closure of the wound, and placement of the sterile bandage. I attest to the content of the Intraoperative Record and any orders documented therein. Any exceptions are noted below.
--- NOTE | 2022-10-25 11:52 | XRay Report ---
LEFT KNEE 2 VIEWS History: Left total knee arthroplasty. Degenerative arthritis. Postop. FINDINGS: The patient is status post a left total knee arthroplasty. The hardware is intact. No fract ure or dislocation. Skin timothy are in place. IMPRESSION: Left total knee arthroplasty. No evidence for hardware complication. ACT 112: Negative or not required by law. Electronically signed by: Cali Fernandes M.D. 10/25/2022 11:51 AM
[2022-10-25] MEDS ORDERED: ePHEDrine sulfate 50 MG/ML AMP ONE (11:54)
[2022-10-25] MEDS ORDERED: ONDANSETRON INJ 2 MG/ML 2 ML VIAL ONE (12:01)
[2022-10-25] MEDS ORDERED: KETOROLAC 30 MG/ML VIAL ONE (12:01)
[2022-10-25] MEDS ORDERED: DEXAMETHASONE SOD INJ 4 MG/ML VIAL ONE (12:01)
[2022-10-25] MEDS ORDERED: PHENYLEPHRINE 100MCG/ML 5ML SYR ONE (12:05)
[2022-10-25] MEDS ORDERED: CARBOHYDRATES FOR HYPOGLYCEMIA PO PRN (12:59)
[2022-10-25] MEDS ORDERED: HYDROmorphone INJ 0.5 MG/0.5 ML SYR IV PRN (12:59)
[2022-10-25] MEDS ORDERED: bisacodyL 10 MG SUPP PR PRN (12:59)
[2022-10-25] MEDS ORDERED: LORazepam 0.5 MG TAB PO PRN (12:59)
[2022-10-25] MEDS ORDERED: NYSTATIN POWDER 15GM BTL EXT PRN (12:59)
[2022-10-25] MEDS ORDERED: HYDROmorphone HCL 2 MG TAB PO PRN (12:59)
[2022-10-25] MEDS ORDERED: ALUMINUM/MAGNESIUM SUSP 30 ML UDC PO PRN (12:59)
[2022-10-25] MEDS ORDERED: DEXTROSE 50% 50 ML SYRINGE IV PRN (12:59)
[2022-10-25] MEDS ORDERED: METOCLOPRAMIDE HCL INJ 5 MG/ML 2 ML VIAL IV PRN (12:59)
[2022-10-25] MEDS ORDERED: NYSTATIN/TRIAMCIN CR 15 GM TUBE EXT PRN (12:59)
[2022-10-25] MEDS ORDERED: PHARMACY GLYCEMIC MGMT CONSULT PRN (12:59)
[2022-10-25] MEDS ORDERED: MAGNESIUM HYDROXIDE SUSP 30 ML UDC PO PRN (12:59)
[2022-10-25] MEDS ORDERED: GLUCOSE 40% GEL 15 GM TUBE PO PRN (12:59)
[2022-10-25] MEDS ORDERED: NALOXONE HCL 0.4 MG/1 ML VIAL/CARP IV PRN (12:59)
[2022-10-25] MEDS ORDERED: GLUCAGON FOR INJ 1 MG VIAL SQ PRN (12:59)
[2022-10-25] MEDS ORDERED: ONDANSETRON INJ 2 MG/ML 2 ML VIAL IV PRN (12:59)
[2022-10-25] MEDS ORDERED: GLUCOSE 10 TAB/TUBE PO PRN (12:59)
--- NOTE | 2022-10-25 13:22 | Anesthesiology Progress Note ---
Date of Service October 25, 2022 Anesthesia Post Procedure Vital Signs Vital Signs: Temp Pulse Pulse Resp BP Pulse Ox O2 Del Method 10/25/22 13:12 36.6 C 83 16 143/86 H 95 Room Air 10/25/22 12:45 36.7 C 87 18 139/82 97 Room Air 10/25/22 12:15 36.3 C L 69 12 156/91 H 93 Room Air 10/25/22 12:00 36.3 C L 72 15 166/99 H 94 Room Air 10/25/22 11:40 67 18 140/83 98 Oxymask 10/25/22 11:30 84 24 157/86 H 99 Oxymask 10/25/22 11:50 65 15 148/83 H 95 Room Air 10/25/22 11:20 76 16 153/84 H 97 Oxymask 10/25/22 11:10 36.2 C L 82 18 138/71 93 Oxymask 10/25/22 08:19 70 18 136/85 95 Room Air O2 Flow Rate 10/25/22 13:12 10/25/22 12:45 10/25/22 12:15 10/25/22 12:00 10/25/22 11:40 2 10/25/22 11:30 3 10/25/22 11:50 10/25/22 11:20 5 10/25/22 11:10 7 10/25/22 08:19 Pain Intensity Left Knee: Pain Intensity: 0 Transfer of Care Handoff Completed per policy Notes Mental Status: alert / awake / arousable and participated in evaluation Nausea / Vomiting: adequately controlled Pain: adequately controlled Airway Patency, RR, SpO2: stable & adequate BP & HR: stable & adequate Hydration State: stable & adequate Neuraxial Anesthesia: was administered and sensory block is resolving Anesthetic Complications: no major complications apparent and Pt Satisfied with anesthetic care
--- NOTE | 2022-10-25 14:15 | Pharmacy Report ---
Pharmacy Glycemic Short Note 2 - Date of Service October 25, 2022 - Glycemic Short BSG Results (Last 24 hours): 10/25/22 10/25/22 06:23 12:30 POC Glucose 192 H 166 H OUTPATIENT ANTIDIABETIC REGIMEN: * Lantus 18 units SQ daily * Metformin 1000 mg PO BID * A1c = 8% (09/24/22) ASSESSMENT: * Emma is POD#0 s/p left TKA. She has a h/o of T2DM managed with basal insulin plus metformin as an outpatient. * Patient may have received dexamethasone 8 mg IV stephanai-op. Medication was removed from [facility]. If given, patient is likely to experience steroid induced hyperglycemia in the immediate post op setting. * Will dose Lantus per BSG scale (may continue home dose if BSG is 160 mg/dL or less) and utilize aggressive CF/CR for POD #0. Overnight check at 00. * If patient is tolerating an oral diet and renal function appropriate, will likely resume metformin POD #1. PLAN FOR INPATIENT GLYCEMIC CONTROL: * Hold outpatient oral diabetes medications * Basal insulin * Lantus 18-28 units SQ with dinner: * 18 units for BSG 160 mg/dL or less * 28 units for BSG greater than 160 mg/dL * Bolus insulin * NovoLog per scale ACHS or Q6hrs while NPO * Goal Range: Low 110 mg/dL - High 140 mg/dL * Correction Factor: 25 mg/dL/unit * Nutritional / Prandial insulin per carb ratio of 1 unit per 8 grams CHO consumed
[2022-10-25] MEDS: SODIUM CHLORIDE 0.9% 1000ML 1,000 ML IV SCH (14:24)
[2022-10-25] MEDS: ACETAMINOPHEN 500 MG TAB PO SCH ×2 (14:25→21:50)
[2022-10-25] MEDS: KETOROLAC TROMETHAMINE 15 MG/ML VIAL IV SCH ×2 (14:25→20:31)
[2022-10-25] MEDS: INSULIN ASPART PER UNIT SC SCH ×3 (14:34→21:49)
[2022-10-25] MEDS ORDERED: LANTUS PER UNIT CHARGE SQ SCH (16:30)
[2022-10-25] MEDS ORDERED: TRANEXAMIC ACID / 0.7% NACL 1,000 MG/100 ML BAG IV SCH (17:15)
[2022-10-25] MEDS: ceFAZolin 2000MG 2,000 MG/15 ML SYR IV SCH (18:44)
[2022-10-25] MEDS: DOCUSATE SODIUM/SENNA 50/8.6MG TAB PO SCH (20:30)
[2022-10-25] MEDS: ASPIRIN 81 MG ECTAB PO SCH (20:30)
[2022-10-25] MEDS: LABETALOL HCL 200 MG TAB PO SCH (20:30)
[2022-10-25] MEDS: DOCUSATE SODIUM 100 MG CAP PO SCH (20:31)
[2022-10-25] MEDS ORDERED: ATORVASTATIN 40 MG TAB PO SCH (21:00)
[2022-10-25] MEDS ORDERED: SENNA 8.6 MG TAB PO SCH (21:00)
[2022-10-25] MEDS ORDERED: CITALOPRAM 20 MG TAB PO SCH (21:00)
[2022-10-25] MEDS ORDERED: LOSARTAN POTASSIUM 25 MG TAB PO SCH (21:00)
[2022-10-25] MEDS ORDERED: amLODIPine BESYLATE 5 MG TAB PO SCH (21:00)
[2022-10-25] MEDS ORDERED: NON-FORMULARY MEDICATION (Insulin Glargine [Lantus Solostar U-100 Insulin] 100 unit/mL (3 SQ SCH (21:00)
[2022-10-26] MEDS ORDERED: INSULIN ASPART PER UNIT SC SCH
[2022-10-26] MEDS: ceFAZolin 2000MG 2,000 MG/15 ML SYR IV SCH (01:09)
[2022-10-26] MEDS: KETOROLAC TROMETHAMINE 15 MG/ML VIAL IV SCH ×3 (01:09→12:43)
[2022-10-26] MEDS: SODIUM CHLORIDE 0.9% 1000ML 1,000 ML IV SCH (01:39)
[2022-10-26 06:33] LABS: Hematocrit (blood only) 30.4 % (37.0-47.0); Hemoglobin 10.5 g/dl (12.0-16.0); Mean Corpuscular Hemoglobin 31.5 pg (25.0-34.0); Mean Corpuscular Hgb Conc 34.5 g/dL (32.0-36.0); Mean Corpuscular Volume 91.3 fL (80.0-100.0); Mean Platelet Volume 9.3 fL (9.4-12.4); Platelet Count 286 K/uL (130-400); RDW Coefficient of Variation 13.2 % (11.5-14.5); RDW Standard Deviation 44.3 fL (36.4-46.3); Red Blood Count 3.33 M/uL (4.20-5.40)
[2022-10-26] MEDS: ACETAMINOPHEN 500 MG TAB PO SCH (06:34)
[2022-10-26 06:54] LABS: Calcium 9.8 mg/dl (8.5-10.1); Creatinine Clr Calc Pharmacy 43.2 ml/min; Est GFR (African American) 53.2 ml/min; Est GFR (Non-African American) 45.9 ml/min; Potassium 4.1 mmol/L (3.5-5.1)
[2022-10-26] MEDS: LABETALOL HCL 200 MG TAB PO SCH (08:33)
[2022-10-26] MEDS: DOCUSATE SODIUM 100 MG CAP PO SCH (08:33)
[2022-10-26] MEDS: ASPIRIN 81 MG ECTAB PO SCH (08:33)
[2022-10-26] MEDS: DOCUSATE SODIUM/SENNA 50/8.6MG TAB PO SCH (08:35)
--- NOTE | 2022-10-26 08:40 | Progress Notes ---
SUBJECTIVE: A 72-year-old white female postoperative day 1 from a left knee replacement. She is doi ng quite well. Rates her most severe pain at 3. No chest pain or shortness of breath. Not feeling dizzy or lightheaded. Hoping to go home today. OBJECTIVE: VITAL SIGNS: Stable. A little hypertensive with a blood pressure of 188/96. GENERAL: Physical examination shows a pleasant middle-aged female. She is sitting up in bed with he r legs dangling over the edge and looks really comfortable. LUNGS: Clear to auscultation. HEART: Regular rate and rhythm. ABDOMEN: Soft, nontender, nondistended. EXTREMITIES: Grossly neurovascularly intact except as follows: Examination of the left leg reveals the dressing to be clean, dry and intact. The patient can flex and extend her leg appropriately. Suzy west has got a good straight leg raise. She is neurologically intact. LABORATORY DATA: Hemoglobin 10.5. Hematocrit is 30.4. Electrolytes are stable. ASSESSMENT: A 72-year-old white female postoperative day 1 from a left knee replacement, doing quite well. Pain is controlled. A little hypertensive and will make sure she is back on her normal meds. PLAN: 1. DVT prophylaxis includes thigh-high TEDs, SCDs, and aspirin twice a day. 2. PT/OT, weightbear as tolerated. Left total knee protocol. 3. Pain control, doing okay with current pain regimen. 4. Disposition: Plan to discharge to home with some home health likely today if she does okay in [facility]. Job ID: [id number]
[2022-10-26] MEDS: INSULIN ASPART PER UNIT SC SCH ×2 (08:41→12:50)
[2022-10-26] MEDS ORDERED: CHLORTHALIDONE 25 MG TAB PO SCH (09:00)
[2022-10-26] MEDS ORDERED: LEVOTHYROXINE SODIUM 125 MCG TABLET PO SCH (09:00)
[2022-10-26] MEDS ORDERED: MULTIVITAMIN TAB PO SCH (09:00)
[2022-10-26] MEDS ORDERED: LANTUS PER UNIT CHARGE SQ SCH (21:00)
--- NOTE | 2022-10-31 06:42 | Discharge Summary ---
Date of Service October 31, 2022 Discharge Data Procedures Performed Operation Date: 10/25/22 08:50 Actual Procedures p Left Total Knee Arthroplasty(Left) - Jason Herron MD Hospital Course (1) Status post total left knee replacement: This is a 72 year old patient admitted on 10/25/22 and underwent total knee arthroplasty. She tolerated the procedure well and there were no complications. Transferred to the PACU post op and later to the orthopedic floor for further care. She was given ancef for antibiotic prophylaxis. She was also given VIRGILIO stockings, SCDs, and aspirin for DVT prophylaxis. Hemoglobin, hematocrit, and vital signs were monitored during her hospital stay and remained stable. Did not require any blood transfusions. There were no complications during her hospital stay. By post op day #1 the patient was tolerating a diabetic diet, pain was reasonably controlled with oral pain medicine, and she was participating in physical therapy. On post op day #1 the patient was discharged home and set up with home health care. She was given printed discharge instructions including prescriptions for extra strength tylenol, aspirin, cefadroxil, ketorolac, zofran, senokot, and hydromorphone. Continue physical therapy, weight bearing as tolerated. Continue VIRGILIO stockings. Follow up approximately 2 weeks post op or sooner if there are problems or concerns. Coding Level of Care Code None Diagnoses Status post total left knee replacement Z96.652
== END 2022-10-26 13:55 | disposition home health service (06) ==
LOC: ASU 06:08 → 3N 06:08
DX: Z88.5 Allergy status to narcotic agent; M25.462 Effusion, left knee; M25.762 Osteophyte, left knee; M10.9 Gout, unspecified; Z87.891 Personal history of nicotine dependence; M17.12 Unilateral primary osteoarthritis, left knee; Z79.890 Hormone replacement therapy; Z79.84 Long term (current) use of oral hypoglycemic drugs; Z79.4 Long term (current) use of insulin; Z79.899 Other long term (current) drug therapy; Z79.82 Long term (current) use of aspirin; Z88.8 Allergy status to other drugs, medicaments and biological substances

== ENCOUNTER 2023-08-08 07:43 | Observation (INO) ==
--- NOTE | 2023-07-25 13:14 | Anesthesiology Consultation ---
Date of Service July 25, 2023 Assessment & Plan (1) Encounter for pre-operative examination: Chart Review Chart Review: Acceptable Risk for Surgery and Patient NOT seen in Pre Admission Testing Recent Anesthesia Experience: L TKA 10/25/22: SAB L3-4 x 2 attempts, PNB, MAC without issue Note, Re: 'Difficult Intubation': Glidescope used for 2012 hernia surgery; note was made that pt was a 'difficult intubation' but Glidescope was successful (no additional details available). Pt notes that her father was also labeled 'difficult intubation'. Pt is scheduled for 23hour Obs; she is not an acceptable candidate for OPJ. Infectious Disease screening: Per PAT nursing assessment on 07/25/23, No known infectious disease contacts in past 10 days or current infectious disease symptoms. No recent travel outside the country. History Surgery Operation Date: 08/08/23 07:00 Proposed Procedures p Right Total Knee Arthroplasty - Jason Herron MD Height/Weight Height: 5 ft 2 in Weight: 82.554 kg Allergies Allergy/AdvReac Type Severity Reaction Status Date / Time nifedipine Allergy Unknown TACHYCARDIA Verified 07/25/23 10:08 oxycodone AdvReac Mild VOMITING Verified 07/25/23 10:08 Medications Home Medications Medication Instructions Recorded Confirmed Last Taken nystatin 100,000 unit/gram topical 1 applic topical TID PRN Rash 04/30/21 07/25/23 10/18/22 07:00 powder nystatin-triamcinolone 100,000 1 applic topical BID PRN Rash 04/30/21 07/25/23 10/18/22 07:00 unit/g-0.1 % topical cream pen needle, diabetic 31 gauge x #100 ea 07/16/22 07/25/23 Unknown 1/4" (Easy Comfort Pen [place]) amlodipine 10 mg tablet 10 mg PO QPM 07/29/22 07/25/23 10/24/22 22:00 chlorthalidone 25 mg tablet 25 mg PO QAM 07/29/22 07/25/23 10/24/22 07:00 levothyroxine 125 mcg tablet 125 mcg PO QAM 07/29/22 07/25/23 10/24/22 07:00 losartan 25 mg tablet 25 mg PO QPM 07/29/22 07/25/23 10/24/22 18:00 amoxicillin 500 mg tablet 2,000 mg (4 x 500 mg) PO ONCE #4 01/10/23 07/25/23 Unknown tabs labetalol 100 mg tablet 100 mg PO BID #180 tabs 04/08/23 07/25/23 Unknown citalopram 10 mg tablet 10 mg PO QAM 06/16/23 07/25/23 Unknown insulin glargine 100 unit/mL (3 20 unit (0.2 mL) subcut QPM #20 mL 06/24/23 07/25/23 Unknown mL) subcutaneous pen (Lantus Solostar U-100 Insulin) lorazepam 0.5 mg tablet 0.5 mg PO DAILY PRN Anxiety #30 06/24/23 07/25/23 Unknown tabs atorvastatin 80 mg tablet 80 mg PO QPM #90 tabs 07/18/23 07/25/23 Unknown metformin 500 mg tablet,extended 1,000 mg (2 x 500 mg) PO BID #360 07/18/23 07/25/23 Unknown release 24hr tabs Past Medical History Medical History (Updated 07/25/23 @ 15:21 by Margaret Lino PA-C) Sciatica CKD (chronic kidney disease), stage III creat stable around 0.96 (eGFR 59.5) Hypothyroidism controlled with medication Anxiety 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 Pt notes that her father was also labeled 'difficult intubation'. Type 2 diabetes mellitus with microalbuminuria, with long-term current use of insulin Ha1c 07/25/23: 8.0% Mitral regurgitation Mild MR per 05/2023 ECHO Complete heart block S/p pacemaker placement 2016 (Medtronic); she is pacer-dependent (100% V paced per 06/2023 report) Past Family History Family History Aunt Breast cancer Maternal Father Hx of CABG Grandmother (Maternal) Colorectal cancer Mother Diabetes Other No family history of adverse response to anesthesia Denies family history of Ovarian cancer Past Surgical History Surgical History (Updated 07/25/23 @ 13:13 by Margaret Lino PA-C) History of total left knee replacement (TKR) L TKA 10/25/22: SAB L3-L4 (x 2 attempts), PNB, MAC; no issues noted Cardiac pac[facility] -- follows with Dr. Hair. History of esophagogastroduodenoscopy (EGD) H/O section x2 H/O umbilical hernia repair x2 H/O colonoscopy 08/08/22 [facility] H/O wisdom tooth extraction History of tonsillectomy and adenoidectomy Social History Smoking Status: Former smoker Do You Dip or Chew Tobacco: No Smoking End Date: 1972 Hx Alcohol Use: Yes Alcohol type: wine alcohol intake frequency: holidays/special occasions only Hx Substance Use: No substance use type: does not use Lab Results Anesthesia Preop Results Results Anesthesia Widget: WBC 7.63 K/ul (4.8-10.8) 07/25/23 Hgb 12.7 g/dl (12.0-16.0) 07/25/23 Hct 38.4 % (37.0-47.0) 07/25/23 Plt 306 K/uL (130-400) 07/25/23 Na 136 mmol/L (136-145) 07/25/23 K 3.8 mmol/L (3.5-5.1) 07/25/23 Cl 100 mmol/L (98-107) 07/25/23 CO2 26 mmol/L (21-32) 07/25/23 BUN 18 mg/dl (6-23) 07/25/23 Creat 0.96 mg/dl (0.6-1.2) 07/25/23 Glucose Level 134 mg/dl (70-99(Fasting)) H 07/25/23 PT 10.6 Seconds (9.0-12.0) 07/25/23 PTT 28.3 Seconds (21.0-31.0) 07/25/23 INR 1.0 (0.9-1.1) 07/25/23 HA1c 8.0 % (4.5-5.6) H 07/25/23 Urine Color Yellow 06/20/23 Urine Appearance Clear (Clear) 06/20/23 Urine pH 7.0 (4.5-7.5) 06/20/23 Urine Specific [place] 1.018 (1.000-1.030) 06/20/23 Urine Protein Trace (Negative) H 06/20/23 Urine Glucose (UA) 2+ (Negative) H 06/20/23 Urine Ketones Trace (Negative) H 06/20/23 Urine Blood Negative (Negative) 06/20/23 Urine Nitrite Negative (Negative) 06/20/23 Urine Bilirubin Negative (Negative) 06/20/23 Urine Urobilinogen Negative (Negative) 06/20/23 Urine Leukocyte Esterase Negative (Negative) 06/20/23 Urine WBC (Auto) 1-5 /hpf (0-5) 06/20/23 Urine RBC (Auto) 0-4 /hpf (0-4) 06/20/23 Urine Hyaline Casts (Auto) 0 /lpf (0-5) 06/20/23 Urine Epithelial Cells (Auto) 20-30 /lpf (0-5) H 06/20/23 Urine Bacteria (Auto) Negative (Negative) 06/20/23 Blood Type AB Positive 07/25/23 Antibody Screen NEGATIVE 07/25/23 Testing Electrocardiogram Date: 09/24/22 AV dual-paced rhythm with prolonged AV conduction Chest X-Ray Date: 09/24/22 Findings: + NAD Cardiac silhouette is enlarged. L subclavian pacer. Atherosclerosis of the aorta. Mild R hemidiaphragmatic elevation. Echocardiogram Date: 06/06/23 EF: 45-50% LVSF mildly reduced. mild cLVH. LA mildly dilated. RA mildly dilated. Mild MR. Mild TR. Abnormal (paradoxical) septal motion c/w RV pacemaker. Stress Test Date: 07/10/23 Type: nuclear (Lexiscan) Hemodynamic and electrocardiographic findings: 1. Resting heart rate 64 bpm jodi to a maximum of 149 bpm with Lexiscan infusion. 2. Resting heart rate 165/92 mmHg dropped to a minimum of 139/90 millimeters mercury with Lexiscan infusion. 3. Baseline EKG demonstrated normal sinus rhythm with occasional AV pacing and more frequent V pacing. There was V pacing with Lexiscan infusion. Nondiagnostic for ischemic changes. No Lexiscan induced arrhythmias. Myocardial perfusion imaging findings: 1. Raw data analysis demonstrated mild breast attenuation artifact. This is a good quality study. 2. Gated myocardial perfusion imaging demonstrates normal LV size, mild inferior and septal wall motion abnormality, and normal LV function with calculated EF of 65%. 3. There is a medium size, moderate intensity fixed myocardial perfusion defect involving the mid to distal septal and apical myocardium. This suggests prior infarct and/or artifact. There is no myocardial perfusion imaging findings suggestive of myocardial ischemia. 4. Study is moderately abnormal, however, it is low risk for myocardial ischemia. No prior studies for comparison. Other Testing 06/13/23 Pacemaker Check Medtronic Battery Lead Status: 4 years Atrial Sensing-Ventricular Pacing (-DISPLAY ARTIST) Arrhythmic Events: Unable to confirm duration of SVT event(s) identified. Atrial events occuring within the PVARP recorded >95% RV Pacing Lower Rate Limit: 60; Max tracking rate: 130 Provider Comments: Normal device function. Two episodes recorded as 'atrial fibrillation' without EGMs. Both episodes lasted less than 3 minutes. 100% ventricular pacing. Neck CTA 08/11/21 No stenosis or dissection within the bilateral common carotid, cervical internal carotid or vertebral arteries. Head CTA 08/11/21 No central vessel occlusion. No intracranial aneurysm.
[~2023-08-08 07:43] MED LIST changes: +BUPIVACAINE 0.5 % 5 MG/1 ML PF 10ML VIAL ONE; -BUPIVACAINE LIPOSOME/PF 266 MG, BUPIVACAINE/EPINEPHRINE 50 ML, SODIUM CHLORIDE 0.9% 30 ... INFIL SCH; +BUPIVACAINE LIPOSOME/PF 266 MG, BUPIVACAINE/EPINEPHRINE 50 ML, SODIUM CHLORIDE 0.9% PF ... INFIL SCH; +DEXAMETHASONE SOD INJ 4 MG/ML VIAL ONE; +LIDOCAINE 2% 2 ML VIAL/AMP(20MG/ML) INFIL ONE; +LR 15ML/HR IV SCH; -LR 500ML BOLUS, THEN 15ML/HR IV SCH; +MIDAZOLAM HCL 1 MG/ML 2ML VIAL ONE; +ONDANSETRON INJ 2 MG/ML 2 ML VIAL ONE; +PROPOFOL IV EMULSION 10 MG/ML 20 ML VIAL IV ONE; +ROPIVACAINE 0.5% 5 MG/ML 30 ML VIAL ONE; +fentaNYL citrate PF 100 MCG/2 ML VIAL ONE
--- NOTE | 2023-08-08 07:56 | History & Physical Bridge Note ---
Date of Service August 08, 2023 History & Physical Bridge Note I have examined the patient, reviewed the History & Physical and in the interval since the performance of the History & Physical I have noted the following changes of clinical significance: no changes noted
[2023-08-08] MEDS ORDERED: ePHEDrine sulfate 50 MG/ML AMP IV PRN (08:33)
[2023-08-08] MEDS ORDERED: ATROPINE SULFATE 0.1 MG/ML 10ML SYR IV PRN (08:33)
[2023-08-08] MEDS ORDERED: ONDANSETRON INJ 2 MG/ML 2 ML VIAL IV PRN ×2 (08:33→13:15)
[2023-08-08] MEDS ORDERED: fentaNYL citrate PF 100 MCG/2 ML VIAL IV PRN (08:33)
[2023-08-08] MEDS ORDERED: SODIUM CHLORIDE 0.9% PF 50 ML VIAL ONE (09:46)
[2023-08-08] MEDS ORDERED: BUPIVACAINE/EPINEPHRINE 0.25% 1:200,000 30 ML VIAL ONE (09:46)
[2023-08-08] MEDS ORDERED: BUPIVACAINE LIPOSOME 1.3% 266 MG/20 ML VIAL ONE (09:47)
--- NOTE | 2023-08-08 11:58 | Operative Report ---
PG Post Operative Report Pre & Post Diagnosis Operation Date: 08/08/23 09:20 Pre-Op Diagnosis: Right Knee Advanced Degenerative Joint Disease Post-Op Diagnosis: Right Knee Advanced Degenerative Joint Disease I identified the patient and participated in the time-out.: Yes Procedure Operation Date: 08/08/23 09:20 Actual Procedures p Right Total Knee Arthroplasty(Right) - Jason Herron MD Surgeon Jason Herron MD Congressional Aide Rubio Subramanian PA-C Estimated Blood Loss 50 Findings Consistent with Post-Op Diagnosis Operative findings were advanced right knee tricompartment DJD. She had grade 4 [id number] disease in all 3 compartments most severe in the medial side. Moderate-sized joint effusion. Significant osteophyte formation. Specimens Right knee sent for pathology Anesthesia Type Spinal MAC Complications none Disposition Accompanied Patient To Recovery: No Indications Patient is a 72-year-old female is had a long history of bilateral knee pain discomfort describes gotten worse over time. She been to extensive conservative treatment over the years years which become less successful. X-rays show advanced knee arthritis. She had her left knee replaced about 9 months ago and done well from this. She continues to be limited by right knee pain discomfort stiffness. She like to proceed with total knee arthroplasty. Description of Procedure Operative implants consist of: 1 Biomet Vanguard size 62.5 right posterior stabilized femoral component. 2. Biomet size 63 tibial tray. 3. 14 mm pro stabilized polyethylene insert. 4. 31 x 8 all poly patella. The patient was taken the operating room, identified, placed on the operating table in the supine position. All contact areas were appropriately padded. IV antibiotics tried by anesthesia team. A spinal anesthetic and abductor canal block had been provided in the holding area. Briscoe catheter was placed in sterile fashion. Right thigh tent was then placed in the right lower extre mities then prepped and draped in usual sterile fashion. The right leg was elevated and exsanguinated with use of an Esmarch and the turn was placed at 3 mmHg. An anterior approach to the right knee was then performed to longitudinal incision centered over the patella. Sharp dissection was carried through subcutaneous tissue down the extensor mechanism. Medial parapatellar arthrotomy incision was made. Some subperiosteal dissection was carried out medially. The fat pad was dissected from Neath patella tendon. Lateral patellofemoral ligament was released. Patella subluxated laterally and the knee was flexed. The osteophytes taken on distal femur. The ACL PCL were then released from distal femur and the tibia subluxated anteriorly. The external tibial alignment jig was then placed in the anterior face of the tibia and adjusted 14 mm medially. Proximal tibial cut was made removed by millimeter bone from most deficient aspect medial tibial plateau. The tibia was then sized to a size 63. Attention drawn the femur. The distal femur returned with a sharp drill. Intramedullary canal was suction. Right 5 degree valgus cutting guide was placed. Distal femoral cutting block was pinned in place. Distal femoral cut was made to take an additional 3 mm of bone off distal femur. The femur was then sized to a size 62.5. The AP cutting block was pinned parallel to the epicondylar axis which was 4 degrees of external rotation. The anterior cut, anterior chamfer, posterior cut, posterior chamfer cuts were made. The box cutting guide was placed in a just slight lateral and the box cut was made. The knee was flexed. The remnants of the medial and lateral menisci were excised. The osteophytes taken off the posterior aspect the femur. A trial femoral component was placed through the tibial tray was pinned in maximum external rotation and the drill and stem punch were used to create defect in proximal tibia for the tibial tray. Knee was then trialed and the 14 mm insert fit most appropriately. Attention drawn the patella. The patella was cleaned of all soft tissues. Patella thickness measured 21 mm in thickness and was cut down to 13. Was sized to a size 31 patella. The lug holes were drilled for 31 patella. The lateral osteophytes removed. Patella button was placed. Knee was taken through range of motion and the patella tracked nicely with no thumbs test. Attention drawn to placing permanent components. Nupathe all trial components were removed. Bone plug was placed in the distal femur limit blood loss. Double batch [place] G cement was mixed. Biomet Vanguard size 62.5 right posterior stabilized femoral component, a size 63 tibial tray, a 14 mm post stabilized polyethylene insert, and a 31 x 8 all Paller patella then cemented in place. The knee was brought out into full extension till cement hardened. Final cement check was then performed. Pericapsular tissues were injected with total of 100 cc of combination of 20 cc of Exparel, 30 cc normal saline, 50 cc of quarter percent Marcaine with epinephrine. Patient did receive 1 g tranexamic acid. The tourniquet was let down for final tourniquet time 58 minutes. Hemostasis assured use electrocautery. Extensor mechanism closed combination 1 PDS suture #1 Vicryl suture in [id number] fashion. Extensor mechanism checked found to be intact with subcutaneous tissues then closed with 2 Dexon suture in a buried interrupted fashion and the skin was closed skin timothy. Leg was then cleaned and dried and sterile dressing was Xeroform, 4 fours, sterile cast padding, Inderjit bandage were applied. Patient then transferred to the recovery room in stable condition. Patient tolerated procedure well and there were no complications. Rubio Subramanian, my physician custody assistant, was present for the entire procedure. His assistance was essential and required for appropriate patient positioning, prepping and draping, surgical exposure, performing the technical details of the operation, placement the implants, closure of the wound, and placement of the sterile bandage. I attest to the content of the Intraoperative Record and any orders documented therein. Any exceptions are noted below.
--- NOTE | 2023-08-08 13:02 | XRay Report ---
XR knee RT 1 or 2V routine CLINICAL HISTORY: Surgical Post Op TECHNIQUE: 2 views of the right knee were obtained. Comparison: Comparison is made to knee radiographs 06/30/2007 FINDINGS: Patient is status post total knee arthroplasty with expected postsurgical changes including soft tiss ue swelling and subcutaneous emphysema. No periarticular lucency or hardware fracture is seen. IMPRESSION: Expected postoperative appearance status post placement of total knee arthroplasty. ACT 112: Negative or not required by law. Electronically signed by: Donn Modi M.D. 08/08/2023 1:00 PM
[2023-08-08] MEDS ORDERED: LORazepam 0.5 MG TAB PO PRN (13:15)
[2023-08-08] MEDS ORDERED: METOCLOPRAMIDE HCL INJ 5 MG/ML 2 ML VIAL IV PRN (13:15)
[2023-08-08] MEDS ORDERED: NALOXONE HCL 0.4 MG/1 ML VIAL/CARP IV PRN (13:15)
[2023-08-08] MEDS ORDERED: PHARMACY GLYCEMIC MGMT CONSULT PRN (13:15)
[2023-08-08] MEDS ORDERED: HYDROmorphone HCL 2 MG TAB PO PRN (13:15)
[2023-08-08] MEDS ORDERED: GLUCAGON FOR INJ 1 MG VIAL SQ PRN (13:15)
[2023-08-08] MEDS ORDERED: HYDROmorphone INJ 0.5 MG/0.5 ML SYR IV PRN (13:15)
[2023-08-08] MEDS ORDERED: MAGNESIUM HYDROXIDE SUSP 30 ML UDC PO PRN (13:15)
[2023-08-08] MEDS ORDERED: GLUCOSE 10 TAB/TUBE PO PRN (13:15)
[2023-08-08] MEDS ORDERED: bisacodyL 10 MG SUPP PR PRN (13:15)
[2023-08-08] MEDS ORDERED: ALUMINUM/MAGNESIUM SUSP 30 ML UDC PO PRN (13:15)
[2023-08-08] MEDS ORDERED: GLUCOSE 40% GEL 15 GM TUBE PO PRN (13:15)
[2023-08-08] MEDS ORDERED: DEXTROSE 50% 50 ML SYRINGE IV PRN (13:15)
[2023-08-08] MEDS ORDERED: CARBOHYDRATES FOR HYPOGLYCEMIA PO PRN (13:15)
[2023-08-08] MEDS ORDERED: NYSTATIN/TRIAMCIN CR 15 GM TUBE EXT PRN (13:15)
--- NOTE | 2023-08-08 13:36 | Anesthesiology Progress Note ---
Date of Service August 08, 2023 Anesthesia Post Procedure Vital Signs Vital Signs: Temp Pulse Pulse Resp BP Pulse Ox O2 Del Method 08/08/23 13:10 80 18 167/89 H 95 Nasal Cannula 08/08/23 12:55 75 12 160/90 H 96 Nasal Cannula 08/08/23 12:40 72 19 160/96 H 98 Nasal Cannula 08/08/23 12:25 36.6 C 71 12 161/97 H 96 Nasal Cannula 08/08/23 12:15 67 13 157/84 H 96 Nasal Cannula 08/08/23 12:05 78 22 146/91 H 97 Nasal Cannula 08/08/23 11:55 75 20 156/85 H 97 Nasal Cannula 08/08/23 11:49 36.5 C 77 21 132/72 96 Nasal Cannula 08/08/23 08:12 36.5 C 76 18 150/88 H 95 Room Air O2 Flow Rate 08/08/23 13:10 2 08/08/23 12:55 2 08/08/23 12:40 2 08/08/23 12:25 2 08/08/23 12:15 2 08/08/23 12:05 2 08/08/23 11:55 4 08/08/23 11:49 4 08/08/23 08:12 Pain Intensity Right Knee: Pain Intensity: 0 Posterior Neck: Pain Intensity: 3 Notes Mental Status: alert / awake / arousable Patient Amnestic to Procedure: Yes Nausea / Vomiting: adequately controlled Pain: adequately controlled Airway Patency, RR, SpO2: stable & adequate BP & HR: stable & adequate Hydration State: stable & adequate Neuraxial Anesthesia: was administered and sensory block is resolving Anesthetic Complications: no major complications apparent
[2023-08-08] MEDS: SODIUM CHLORIDE 0.9% 1,000 ML IV SCH (14:12)
[2023-08-08] MEDS: KETOROLAC TROMETHAMINE 15 MG/ML VIAL IV SCH ×2 (14:23→20:16)
[2023-08-08] MEDS: ACETAMINOPHEN 500 MG TAB PO SCH ×2 (14:23→20:16)
[2023-08-08] MEDS: INSULIN ASPART PER UNIT CHARGE SC SCH ×3 (14:50→20:18)
[2023-08-08] MEDS: LANTUS PER UNIT CHARGE SC SCH (14:50)
--- NOTE | 2023-08-08 15:01 | Pharmacy Report ---
Pharmacy Glycemic Short Note 2 - Date of Service August 08, 2023 - Glycemic Short BSG Results (Last 24 hours): 08/08/23 08/08/23 08/08/23 08:21 11:51 14:43 POC Glucose 193 H 155 H 181 H OUTPATIENT ANTIDIABETIC REGIMEN: * metformin 1000mg BID * Lantus 20 units SQ QPM * HbA1c 8.0% (07/25/23) ASSESSMENT: * Emma is a 72 YOF admitted status post right total knee replacement. Pharmacy has been consulted for glycemic management while inpatient. * Pre-op BSG elevated, will continue home Lantus dosing given now * Dexamethasone 4mg given during procedure, will add a scaled Lantus at bedtime based on HS BSG * Novolog initiated with parameters at a weight based stress of 3 * Dexamethasone 4mg PO ordered for tomorrow AM. PLAN FOR INPATIENT GLYCEMIC CONTROL: * Hold outpatient oral diabetes medications * Basal insulin * Lantus 20 units SQ QAM * Bolus insulin * NovoLog per scale ACHS or Q6hrs while NPO * Goal Range: Low 110 mg/dL - High 140 mg/dL * Correction Factor: 20 mg/dL/unit * Nutritional / Prandial insulin per carb ratio of 1 unit per 7 grams CHO consumed
[2023-08-08] MEDS: ceFAZolin 2000MG 2,000 MG/15 ML SYR IV SCH (17:42)
[2023-08-08] MEDS ORDERED: TRANEXAMIC ACID / 0.7% NACL 1,000 MG/100 ML BAG IV SCH (18:00)
[2023-08-08] MEDS: ASCORBIC ACID 500 MG TAB PO SCH (18:22)
[2023-08-08] MEDS: LABETALOL HCL 100 MG TAB PO SCH (20:16)
[2023-08-08] MEDS: SENNA 8.6 MG TAB PO SCH (20:16)
[2023-08-08] MEDS: DOCUSATE SODIUM 100 MG CAP PO SCH (20:17)
[2023-08-08] MEDS ORDERED: LOSARTAN POTASSIUM 25 MG TAB PO SCH (21:00)
[2023-08-08] MEDS ORDERED: amLODIPine BESYLATE 5 MG TAB PO SCH (21:00)
[2023-08-08] MEDS ORDERED: NON-FORMULARY MEDICATION (Insulin Glargine [Lantus Solostar U-100 Insulin] 100 unit/mL (3 SQ SCH (21:00)
[2023-08-08] MEDS ORDERED: LANTUS PER UNIT CHARGE SC SCH (21:00)
[2023-08-08] MEDS ORDERED: ATORVASTATIN 40 MG TAB PO SCH (21:00)
[2023-08-08] MEDS ORDERED: SENNA 8.6 MG TAB PO SCH (21:00)
[2023-08-08] MEDS: ASPIRIN 81 MG ECTAB PO SCH (21:14)
[2023-08-09] MEDS: SODIUM CHLORIDE 0.9% 1,000 ML IV SCH (00:26)
[2023-08-09] MEDS: KETOROLAC TROMETHAMINE 15 MG/ML VIAL IV SCH ×2 (01:57→09:55)
[2023-08-09] MEDS: ceFAZolin 2000MG 2,000 MG/15 ML SYR IV SCH (01:57)
[2023-08-09] MEDS ORDERED: LEVOTHYROXINE SODIUM 125 MCG TABLET PO SCH (06:30)
[2023-08-09 06:49] LABS: Hematocrit (blood only) 27.6 % (37.0-47.0); Hemoglobin 9.3 g/dl (12.0-16.0); Mean Corpuscular Hemoglobin 30.6 pg (25.0-34.0); Mean Corpuscular Hgb Conc 33.7 g/dL (32.0-36.0); Mean Corpuscular Volume 90.8 fL (80.0-100.0); Mean Platelet Volume 9.3 fL (9.4-12.4); Platelet Count 256 K/uL (130-400); RDW Coefficient of Variation 12.6 % (11.5-14.5); RDW Standard Deviation 41.3 fL (36.4-46.3); Red Blood Count 3.04 M/uL (4.20-5.40)
[2023-08-09 06:53] LABS: BUN Creatinine Ratio 24.6 (10-20); Calcium 8.7 mg/dl (8.6-10.3); Creatinine Clr Calc Pharmacy 44.9 ml/min; Est GFR (Non-African American) 48.3 ml/min; Potassium 3.9 mmol/L (3.5-5.1)
--- NOTE | 2023-08-09 07:38 | Surgery Progress Note ---
Date of Service August 09, 2023 Assessment & Plan (1) Status post right knee replacement: Plan: 72-year-old female diabetic postop day 1 from right knee replacement doing pretty well. Pain is controlled. She is neurologically intact. She is hoping to go home this morning. Plan: 1. DVT prophylaxis including thigh-high teds, SCDs, aspirin twice a day. 2. PT OT. She is weight-bear as tolerated. Right total knee protocol. 3. Pain control doing okay with current pain regimen 4. Disposition plan to discharge to home with some home health if she does okay in therapy today. Admission and Anticipated Discharge Date Admission Date: August 08, 2023 Subjective 72-year-old female postop day 1 from right knee replacement. She is doing pretty well this morning. I did wake her in bed. Had a reasonable night. Pain is controlled. No chest pain or shortness of breath. She says this is so far so much easier than last time. Physical Exam Physical Exam: Physical examination was a pleasant middle-aged female. She was lying in bed had to wake her this morning. Examination of the right leg reveals dressing clean dry and intact. She can dorsiflex and plantarflex her foot appropriately. She can do a good straight leg raise. She is neurologically intact. Respiratory: normal respiratory effort, lungs clear to auscultation Cardiovascular: RRR, no murmur, no edema Gastrointestinal (Abdomen): normal bowel sounds, soft, nontender, no hepatosplenomegaly Results & Data Vital Signs (Past 12 Hours) Vital Signs Temp Pulse Resp BP Pulse Ox O2 Del Method O2 Flow Rate 08/09/23 03:40 36.4 C L 98 H 18 133/79 94 Room Air 08/08/23 22:57 Nasal Cannula 2 08/08/23 22:51 36.4 C L 82 18 142/79 H 96 Nasal Cannula 2 Laboratory Results Hemoglobin 9.3. Hematocrit 27.6. Electrolytes are stable. PG Care Time/CCT Total # of Minutes Spent Total Time Spent with Patient: Total time spent is greater than 50% in coordination of care (as documented) at patient's floor/unit and/or counseling patient: Coding Level of Care Code 28262 Post Operative Follow-Up Diagnoses Status post right knee replacement Z96.651
[2023-08-09] MEDS ORDERED: dexAMETHasone 4 MG TAB PO SCH (08:00)
[2023-08-09] MEDS ORDERED: CHLORTHALIDONE 25 MG TAB PO SCH (09:00)
[2023-08-09] MEDS ORDERED: MULTIVITAMIN TAB PO SCH (09:00)
[2023-08-09] MEDS ORDERED: CITALOPRAM 20 MG TAB PO SCH (09:00)
[2023-08-09] MEDS: DOCUSATE SODIUM 100 MG CAP PO SCH (09:52)
[2023-08-09] MEDS: LABETALOL HCL 100 MG TAB PO SCH (09:53)
[2023-08-09] MEDS: SENNA 8.6 MG TAB PO SCH (09:55)
[2023-08-09] MEDS: INSULIN ASPART PER UNIT CHARGE SC SCH ×2 (09:57→13:12)
[2023-08-09] MEDS: ACETAMINOPHEN 500 MG TAB PO SCH (10:14)
[2023-08-09] MEDS: LANTUS PER UNIT CHARGE SC SCH (10:15)
[2023-08-09] MEDS: ASCORBIC ACID 500 MG TAB PO SCH (12:15)
[2023-08-09] MEDS: ASPIRIN 81 MG ECTAB PO SCH (12:15)
--- NOTE | 2023-08-12 11:49 | Discharge Summary ---
Date of Service August 12, 2023 Discharge Data Procedures Performed Operation Date: 08/08/23 09:20 Actual Procedures p Right Total Knee Arthroplasty(Right) - Jason Herron MD Hospital Course (1) Status post right knee replacement: This is a 72 year old patient admitted on 08/08/23 and underwent total knee arthroplasty. She tolerated the procedure well and there were no complications. Transferred to the PACU post op and later to the orthopedic floor for further care. She was given ancef for antibiotic prophylaxis. She was also given VIRGILIO stockings, SCDs, and aspirin for DVT prophylaxis. Hemoglobin, hematocrit, and vital signs were monitored during her hospital stay and remained stable. Did not require any blood transfusions. There were no complications during her hospital stay. By post op day #1 the patient was tolerating a diabetic diet, pain was reasonably controlled with oral pain medicine, and she was participating in physical therapy. On post op day #1 the patient was discharged home. She was given printed discharge instructions including prescriptions for extra strength tylenol, aspirin, cefadroxil, ketorolac, zofran, hydromorphone, and senokot. Continue physical therapy, weight bearing as tolerated. Continue VIRGILIO stockings. Follow up approximately 2 weeks post op or sooner if there are problems or concerns. Coding Level of Care Code None Diagnoses Status post right knee replacement Z96.651
== END 2023-08-09 12:50 | disposition home or self-care (01) ==
LOC: ASU 07:43 → PACUINP 07:43 → 3E 14:08

== ENCOUNTER 2023-08-25 11:27 | Inpatient (IN) ==
[2023-08-25] MEDS ORDERED: SODIUM CHLORIDE 0.9% 250 ML IV PRN ×2 (11:50→13:06)
[2023-08-25] MEDS ORDERED: PANTOprazole 80 MG in DEXTROSE 5% 100 ML IV ONE (11:55)
[2023-08-25] MEDS ORDERED: PANTOPRAZOLE BOLUS/DRIP IV STA (11:55)
--- NOTE | 2023-08-25 11:55 | Emergency Department Note ---
Impression & Plan Acute GI bleeding, Symptomatic anemia, Hypokalemia ED Provider Note NAME: IVAN CLEMENT AGE: 72 SEX: F : 1950 ARRIVES VIA: Ambulance INFORMANT: Patient ED PROVIDER(S): Diaz Conner DO CHIEF COMPLAINT: Diarrhea with black stools HPI: Patient is a 72-year-old female who presents to the ER for weakness in combination with some exertional shortness of breath and black stools which started this Friday. She denies any headache or change in vision. No chest pain. No belly pain. No nausea, vomiting, or diarrhea. No dysuria, urgency, or frequency. No other exacerbating or remitting factors. She notes she had a right knee operated on earlier this month and has been taking NSAIDs. No previous GI bleeds. ADDITIONAL HISTORY OBTAINED: Per HPI Chronic Medical/Social Conditions Affecting Care: Per HPI PAST MEDICAL HISTORY:See Below PAST SURGICAL HISTORY:See Below FAMILY HISTORY:See Below SOCIAL HISTORY:See Below HOME MEDICATIONS:See Below ALLERGIES:See Below VITALS:See Below PHYSICAL EXAMINATION: GENERAL: Sitting up in bed, alert, well appearing, well nourished, no distress, non-toxic EYE EXAM: normal conjunctiva. PERRL and EOM's grossly intact. OROPHARYNX: no exudate, no erythema, lips, buccal mucosa, and tongue normal and mucous membranes are moist NECK: supple, no nuchal rigidity, no adenopathy, non-tender LUNGS: Clear to auscultation. Normal chest wall mechanics HEART: no murmurs, S1 normal and S2 normal ABDOMEN: abdomen soft, non-tender, normo-active bowel sounds, no masses, no rebound or guarding. RECTAL: Performed with elevated RN at bedside. Black stools heme positive UPPER EXTREMITIES: upper extremities are grossly normal. LOWER EXTREMITIES: No pitting edema. NEURO EXAM: Normal sensorium, cranial nerves II-XII grossly intact, normal speech, no gross weakness of arms, no gross weakness of legs. MEDICAL DECISION MAKING: Patient is a 72-year-old female who presents ER for above-stated complaint. IV was established blood was obtained. Labs show a hemoglobin of 5.8. Hematocrit is 17. Platelets at 418. INR unremarkable. BMP with mild hypokalemia 3.3. LFTs bilirubin were unremarkable. Stool was heme positive with black stools. Patient was placed on Protonix drip and bolus. 2 units PRBCs were ordered. Patient was transfused while in the ER. Discussed case with the hospitalist. Patient remained hemodynamically stable while here. No belly pain. Mated to the hospital for further workup of her acute GI bleed. No history of varices. Consults/Care Managements Discussions: Per [facility] Triage Nursing notes reviewed. Limited review of prior medical records performed Vital Signs: reviewed and remarkable for no significant abnormalities Differential diagnosis: Differential diagnosis includes etiologies such as diverticulitis, diverticulosis, AVM, coagulopathy, colitis, inflammatory bowel disease, malignancy, Bozena-Navarro tear, esophagitis, peptic ulcer disease, variceal bleed, gastritis, epistaxis, fissure, hemorrhoids, as well as others were entertained. ER treatment provided: See below Diagnostics interpreted by me include EKG and cardiac monitoring as listed below: -Cardiac Monitoring: An order was placed for continuous cardiac monitoring. The monitor shows a rate of 82 with sinus rhythm. -ECG: Atrial sensed ventricularly paced rate of 94 Left axis No PVCs QTc 502 -Laboratory studies:Interpreted by me as stated above in MDM and shown below. Imaging studies: Xrays: As interpreted by me: Portable AP upright 1 view of the chest shows box in left upper chest. No focal infiltrate. CTs show: none Procedures:none Critical Care: I have personally spent 31 minutes of critical care time in the direct management of this patient. This includes bedside care, interpretation of diagnostic studies, and testing, discussion with consultants, patient, and family members, and other required patient management activities. This 31 minutes is in excess of all separately billable procedures. 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 Pt notes that her father was also labeled 'difficult intubation'. Type 2 diabetes mellitus with microalbuminuria, with long-term current use of insulin Ha1c 07/25/23: 8.0% Mitral regurgitation Mild MR per 05/2023 ECHO Complete heart block S/p pacemaker placement 2017 (Medtronic); she is pacer-dependent (100% V paced per 06/2023 report) Surgical History (Updated 08/10/23 @ 00:10 by Edgar Hackett) Status post right knee replacement History of total left knee replacement (TKR) L TKA 10/25/22: SAB L3-L4 (x 2 attempts), PNB, MAC; no issues noted Cardiac pacemaker Placed 2017 - -medtronic - checked monthly -- follows with Dr. Hair. History of esophagogastroduodenoscopy (EGD) H/O section x2 H/O umbilical hernia repair x2 H/O colonoscopy 08/08/22 [facility] H/O wisdom tooth extraction History of tonsillectomy and adenoidectomy Family History Aunt Breast cancer Maternal Father Hx of CABG Grandmother (Maternal) Colorectal cancer Mother Diabetes Other No family history of adverse response to anesthesia Denies family history of Ovarian cancer Social History Smoking Status: Former smoker Tobacco Type: Cigarettes Age Started Using Tobacco: 21; Second Hand Exposure: No; Do You Dip or Chew Tobacco: No; Hx Alcohol Use: Yes Alcohol type: wine Hx Substance Use: No Preferred Language: Estonian Communication Ability: Effective Accordion Maker Required: No Beliefs That Will Affect Care: None Current Living Situation: Spouse Feels Safe at Home: Yes Dental Care, Regularly: Yes Seatbelt Use: always Sunscreen Use: Yes Assistive Devices: Walker Allergies Allergies Allergy/AdvReac Type Severity Reaction Status Date / Time nifedipine Allergy Unknown TACHYCARDIA Verified 08/25/23 15:35 metoclopramide [From Reglan] AdvReac Intermediate Anxiety Verified 08/25/23 15:35 oxycodone AdvReac Mild VOMITING Verified 08/25/23 15:35 Home Meds Home Medications Medication Instructions Recorded Confirmed nystatin 100,000 unit/gram topical 1 applic topical TID PRN Rash 04/30/21 08/25/23 powder nystatin-triamcinolone 100,000 1 applic topical BID PRN Rash 04/30/21 08/25/23 unit/g-0.1 % topical cream levothyroxine 125 mcg tablet 125 mcg PO QAM 07/29/22 08/25/23 citalopram 10 mg tablet 10 mg PO QAM 06/16/23 08/25/23 Previous Rx's Medication Instructions Recorded amoxicillin 500 mg tablet 2,000 mg (4 x 500 mg) PO ONCE #4 01/10/23 tabs labetalol 100 mg tablet 100 mg PO BID #180 tabs 04/08/23 insulin glargine 100 unit/mL (3 20 unit (0.2 mL) subcut QPM #20 mL 06/24/23 mL) subcutaneous pen (Lantus Solostar U-100 Insulin) lorazepam 0.5 mg tablet 0.5 mg PO DAILY PRN Anxiety #30 06/24/23 tabs chlorthalidone 25 mg tablet 25 mg PO QAM #90 tabs 08/05/23 amlodipine 10 mg tablet 10 mg PO QPM #90 tabs 08/06/23 atorvastatin 80 mg tablet 80 mg PO QPM #90 tabs 08/06/23 losartan 25 mg tablet 25 mg PO QPM #90 tabs 08/06/23 metformin 500 mg tablet,extended 1,000 mg (2 x 500 mg) PO BID #360 08/06/23 release 24hr (osmotic) tabs pen needle, diabetic 31 gauge x #100 ea 08/06/2309/11" (Easy Comfort Pen [place]) Results & Data (ED) Vital Signs Vital Signs - 24 hr 08/25/23 11:35 08/25/23 11:37 08/25/23 11:55 Temperature 36.7 C Temperature Source Oral Pulse Rate 82 88 Pulse Rate [Apical] Respiratory Rate 18 Blood Pressure 141/82 H Blood Pressure [Left Arm] Blood Pressure Mean 101 Blood Pressure Mean [Left Arm] Pulse Oximetry 97 96 Oxygen Delivery Method Room Air Room Air Sepsis Recent Fever Within 48 Hours No Sepsis New/Unexplained Change in Mental Status No Sepsis Action Taken by Nursing No Action Required 08/25/23 13:03 Temperature Temperature Source Pulse Rate Pulse Rate [Apical] 94 H Respiratory Rate 18 Blood Pressure Blood Pressure [Left Arm] 129/57 L Blood Pressure Mean Blood Pressure Mean [Left Arm] 81 Pulse Oximetry 97 Oxygen Delivery Method Room Air Sepsis Recent Fever Within 48 Hours Sepsis New/Unexplained Change in Mental Status Sepsis Action Taken by Nursing Laboratory Data 08/25/23 11:40 08/25/23 11:40 Lab Results 08/25/23 08/25/23 08/25/23 Range/Units 11:40 11:55 12:33 WBC 9.09 (4.8-10.8) K/ul RBC 1.82 L (4.20-5.40) M/uL Hgb 5.8 L* (12.0-16.0) g/dl Hct 17.7 L* (37.0-47.0) % MCV 97.3 (80.0-100.0) fL MCH 31.9 (25.0-34.0) pg MCHC 32.8 (32.0-36.0) g/dL RDW Std Deviation 52.2 H (36.4-46.3) fL RDW Coeff of Daljit 15.9 H (11.5-14.5) % Plt Count 418 H (130-400) K/uL MPV 8.6 L (9.4-12.4) fL Immature Gran % (Auto) 0.9 % Neut % (Auto) 78.7 % Lymph % (Auto) 12.3 % Tom[place]kins % (Auto) 6.8 % Eos % (Auto) 1.2 % Baso % (Auto) 0.1 % Neut # (Auto) 7.15 H (1.40-6.50) K/uL Lymph # (Auto) 1.12 L (1.20-3.40) K/uL [place]kins # (Auto) 0.62 H (0.11-0.59) K/uL Eos # (Auto) 0.11 (0.00-0.50) K/uL Baso # (Auto) 0.01 (0.00-0.20) K/uL Immature Gran # (Auto) 0.08 (0.01-0.20) K/uL Polychromasia 2+ Hypochromasia Present PT 11.1 (9.0-12.0) Seconds INR 1.0 (0.9-1.1) APTT 23 (21-31) Seconds PTT Ratio 0.8 Sodium 136 (136-145) mmol/L Potassium 3.3 L (3.5-5.1) mmol/L Chloride 102 (98-107) mmol/L Carbon Dioxide 25 (21-32) mmol/L Anion Gap 9 (3-11) BUN 42 H (6-23) mg/dl Creatinine 0.90 (0.6-1.2) mg/dl Est Cr Clr Drug Dosing 57.0 ml/min Est GFR ( Amer) 74.6 ml/min Est GFR (Non-Af Amer) 64.3 ml/min BUN/Creatinine Ratio 46.7 H (10-20) Glucose 147 H (70-99(Fasting)) mg/dl Calcium 9.1 (8.6-10.3) mg/dl Iron 57 (35-150) mcg/dl TIBC 351 (250-450) mcg/dl Unsaturated IBC 294 (155-355) mcg/dl Transferrin % Sat 16 (15-50) % Ferritin 76.0 (8-388) ng/ml Total Bilirubin 0.5 (0.2-1.0) mg/dl AST 15 (13-39) U/L ALT 15 (7-52) U/L Alkaline Phosphatase 51 (34-104) U/L Total Protein 6.1 (6.0-8.3) gm/dl Albumin 3.9 (3.4-5.0) gm/dl Globulin 2.2 L (2.5-4.0) gm/dl Albumin/Globulin Ratio 1.8 (0.9-2) Vitamin B12 150 L (180-914) pg/ml Folate 11.42 (>5.38) ng/ml POC Stool Occult Blood Positive A (Negative) Blood Type AB Positive Antibody Screen NEGATIVE Crossmatch See Detail Administered Medications Pantoprazole Sodium 40 mg/ (Dextrose) 100 mls @ 20 mls/hr IV Q5H [facility] Stop: 09/24/23 12:14 Last Admin: 08/25/23 17:29 Dose: 8 mg/hr, 20 mls/hr Documented By: Infusion: 08/25/23 17:29 Dose: Infused Documented By: Admin: 08/25/23 12:57 Dose: 8 mg/hr, 20 mls/hr Documented By: OL Insulin Aspart (Insulin Aspart Per Unit Charge) 0 units SC ACHS [facility] Stop: 09/24/23 16:29 Last Admin: 08/25/23 17:20 Dose: Not Given Documented By: MARCIN Co-signed By: BK Discontinued Medications Sodium Chloride (Nss) 500 mls @ 999 mls/hr IV .Q31M [facility] Stop: 08/25/23 12:30 Last Infusion: 08/25/23 12:47 Dose: Infused Documented By: Admin: 08/25/23 12:15 Dose: 999 mls/hr Documented By: OL Pantoprazole Sodium 80 mg/ (Dextrose) 120 mls @ 480 mls/hr IV NOW ONE Stop: 08/25/23 12:09 Last Infusion: 08/25/23 12:30 Dose: Infused Documented By: Admin: 08/25/23 12:15 Dose: 480 mls/hr Documented By: OL Lorazepam 0.5 mg/ Syringe 0.5 mls @ 2 mls/min IV NOW STA Stop: 08/25/23 14:57 Last Admin: 08/25/23 15:15 Dose: 2 mls/min Documented By: OL Imaging Data Radiologist's Impression: Chest X-Ray 08/25/23 13:22 XR chest 1V portable CLINICAL HISTORY: dizziness, GI bleed ?air under diaphragm TECHNIQUE: Single frontal radiograph of the chest was obtained. Comparison: Comparison is made to chest radiograph 09/24/2022 FINDINGS: Exam is limited by underpenetration. The cardiomediastinal silhouette is normal. The lungs are clear. No evidence of pleural effusion or pneumothorax. There is eventration of the right hemidiaphragm. No pneumoperitoneum is seen. IMPRESSION: No evidence of pneumoperitoneum. No acute abnormalities. ACT 112: Negative or not required by law. Electronically signed by: Donn Modi M.D. 08/25/2023 2:07 PM Discharge Plan Visit Data Chief Complaint: Illness Stated Complaint: ILLNESS ED Provider: Diaz Conner Discharge Problem: Acute GI bleeding, Symptomatic anemia, Hypokalemia Patient Disposition: Admitted As Inpatient Discharge Instructions Interventions: ED Discharge Assessment Last Done: 08/25/23 15:07
[2023-08-25] MEDS ORDERED: SODIUM CHLORIDE 0.9% 500 ML IV SCH (12:00)
[2023-08-25 12:33] LABS: Albumin Globulin Ratio 1.8 (0.9-2); Albumin Level 3.9 gm/dl (3.4-5.0); BUN Creatinine Ratio 46.7 (10-20); Bilirubin,Total 0.5 mg/dl (0.2-1.0); Calcium 9.1 mg/dl (8.6-10.3); Est GFR (African American) 74.6 ml/min; Est GFR (Non-African American) 64.3 ml/min; Globulin 2.2 gm/dl (2.5-4.0); Potassium 3.3 mmol/L (3.5-5.1); Total Protein 6.1 gm/dl (6.0-8.3)
[2023-08-25 12:41] LABS: Hematocrit (blood only) 17.7 % (37.0-47.0); Hemoglobin 5.8 g/dl (12.0-16.0); Mean Corpuscular Hemoglobin 31.9 pg (25.0-34.0); Mean Corpuscular Hgb Conc 32.8 g/dL (32.0-36.0); Mean Corpuscular Volume 97.3 fL (80.0-100.0); Mean Platelet Volume 8.6 fL (9.4-12.4); Platelet Count 418 K/uL (130-400); RDW Coefficient of Variation 15.9 % (11.5-14.5); RDW Standard Deviation 52.2 fL (36.4-46.3); Red Blood Count 1.82 M/uL (4.20-5.40); White Blood Count 9.09 K/ul (4.8-10.8)
[2023-08-25 12:43] LABS: Basophils # (auto) 0.01 K/uL (0.00-0.20); Basophils % (auto) 0.1 %; Eosinophils # (auto) 0.11 K/uL (0.00-0.50); Eosinophils % (auto) 1.2 %; Hypochromasia Present; Immature Granulocytes # (auto) 0.08 K/uL (0.01-0.20); Immature Granulocytes % (auto) 0.9 %; Lymphocytes # (auto) 1.12 K/uL (1.20-3.40); Lymphocytes % (auto) 12.3 %; Monocytes # (auto) 0.62 K/uL (0.11-0.59); Monocytes % (auto) 6.8 %; Neutrophils # (auto) 7.15 K/uL (1.40-6.50); Neutrophils % (auto) 78.7 %; Partial Thromboplastin Ratio 0.8; Partial Thromboplastin Time 23 Seconds (21-31); Polychromasia 2+; Prothrombin Time 11.1 Seconds (9.0-12.0)
[2023-08-25] MEDS: PANTOprazole 40 MG in DEXTROSE 5% MINI-B 100 ML IV SCH ×3 (12:57→23:47)
--- NOTE | 2023-08-25 13:31 | History & Physical Report ---
Date of Service August 25, 2023 Assessment & Plan (1) Acute GI bleeding: Plan: Secondary to NSAID and aspirin use s/p right total knee arthroplasty on August 08 IV pantoprazole bolus and drip Consult gastroenterology (2) Acute blood loss anemia: Plan: Hemoglobin 5.8 on admission from 9.3 (postoperatively) 16 days ago Transfuse 2 units and repeat H&H 2 hours after the second unit finishes (3) Status post right knee replacement: Plan: Informed Dr. Herron of admission - consult placed for possible staple removal tomorrow (4) Hypothyroidism: Plan: TSH 4.379 in March 2023, no need to repeat this Continue levothyroxine 125 mcg p.o. daily (5) Type 2 diabetes mellitus with microalbuminuria, with long-term current use of insulin: Plan: Hemoglobin A1c 8.0 in July, no need to repeat this Novolog: --Goal BSG Range: Low 110 mg/dL, High 140 mg/dL --Correction Factor: 45 mg/dL/unit No carbohydrate ratio --BSGs ACHS if eating, q6h if npo Will add Lantus pending serial glucose measurements (6) Hypokalemia: Plan: Will replace once blood in transfused and get a magnesium level in AM (7) Cardiomyopathy: Plan: LVEF 45 to 50% (8) Hypertension: Plan: Continue labetalol 100mg PO BID All other anti-hypertensives placed on hold given lightheadedness with acute GI bleed (9) Anxiety: Plan: Restart citalopram when ok to take PO meds Plan VTE prophylaxis - chemical contraindicated in setting of acute GI bleed Diet - NPO Disposition - admit to med/tele Admission and Anticipated Discharge Date Admission Date: August 25, 2023 History of Present Illness Chief Complaint: Black stool, lightheadedness Primary Care Provider: Nereida Luo MD Emma Coon is a 72-year-old female who presents to the ER via EMS for dizziness and black stool since Friday. She has a significant history of right knee replacement performed by Dr Herron on August 08. She reports initially doing well after this up until Friday when her darker stools started. Since then she has had black stool but only small amounts until today when she had a lot more with associated significant lightheadedness while walking downstairs therefore decided to come to the ER. [place] were due to be removed today regarding her total knee replacement. No history of GI bleed, ulcer, reflux, heartburn, acid taste in mouth, chest pain or epigastric pain. Allergies Allergy/AdvReac Type Severity Reaction Status Date / Time nifedipine Allergy Unknown TACHYCARDIA Verified 08/25/23 15:35 metoclopramide [From Reglan] AdvReac Intermediate Anxiety Verified 08/25/23 15:35 oxycodone AdvReac Mild VOMITING Verified 08/25/23 15:35 Home Medications Medication Instructions Recorded Confirmed Type nystatin 100,000 unit/gram topical 1 applic topical TID PRN Rash 04/30/21 08/25/23 History powder nystatin-triamcinolone 100,000 1 applic topical BID PRN Rash 04/30/21 08/25/23 History unit/g-0.1 % topical cream levothyroxine 125 mcg tablet 125 mcg PO QAM 07/29/22 08/25/23 History amoxicillin 500 mg tablet 2,000 mg (4 x 500 mg) PO ONCE #4 01/10/23 08/25/23 Rx tabs labetalol 100 mg tablet 100 mg PO BID #180 tabs 04/08/23 08/25/23 Rx citalopram 10 mg tablet 10 mg PO QAM 06/16/23 08/25/23 History insulin glargine 100 unit/mL (3 20 unit (0.2 mL) subcut QPM #20 mL 06/24/23 08/25/23 Rx mL) subcutaneous pen (Lantus Solostar U-100 Insulin) lorazepam 0.5 mg tablet 0.5 mg PO DAILY PRN Anxiety #30 06/24/23 08/25/23 Rx tabs chlorthalidone 25 mg tablet 25 mg PO QAM #90 tabs 08/05/23 08/25/23 Rx amlodipine 10 mg tablet 10 mg PO QPM #90 tabs 08/06/23 08/25/23 Rx atorvastatin 80 mg tablet 80 mg PO QPM #90 tabs 08/06/23 08/25/23 Rx losartan 25 mg tablet 25 mg PO QPM #90 tabs 08/06/23 08/25/23 Rx metformin 500 mg tablet,extended 1,000 mg (2 x 500 mg) PO BID #360 08/06/23 08/25/23 Rx release 24hr (osmotic) tabs pen needle, diabetic 31 gauge x #100 ea 08/06/23 Rx 09/11" (Easy Comfort Pen [place]) Past Med/Surg History Medical History (Updated 08/26/23 @ 07:26 by Henrry Finn MD) Sciatica CKD (chronic kidney disease), stage III creat stable around 0.96 (eGFR 59.5) Hypothyroidism controlled with medication Anxiety 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 Pt notes that her father was also labeled 'difficult intubation'. Type 2 diabetes mellitus with microalbuminuria, with long-term current use of insulin Ha1c 07/25/23: 8.0% Mitral regurgitation Mild MR per 05/2023 ECHO Complete heart block S/p pacemaker placement 2016 (Medtronic); she is pacer-dependent (100% V paced per 06/2023 report) Surgical History (Updated 08/10/23 @ 00:10 by Background Davalarie) Status post right knee replacement History of total left knee replacement (TKR) L TKA 10/25/22: SAB L3-L4 (x 2 attempts), PNB, MAC; no issues noted Cardiac pacemaker Placed 2016 - -medtronic - checked monthly -- follows with Dr. Hair. History of esophagogastroduodenoscopy (EGD) H/O section x2 H/O umbilical hernia repair x2 H/O colonoscopy 08/08/22 [facility] H/O wisdom tooth extraction History of tonsillectomy and adenoidectomy Family History Aunt Breast cancer Maternal Father Hx of CABG Grandmother (Maternal) Colorectal cancer Mother Diabetes Other No family history of adverse response to anesthesia Denies family history of Ovarian cancer Social History Smoking Status: Former smoker Tobacco Type: Cigarettes Age Started Using Tobacco: 21; Second Hand Exposure: No; Do You Dip or Chew Tobacco: No; Tobacco Cessation Education Requested by Patient: No Hx Alcohol Use: No Hx Substance Use: No Preferred Language: Venezuelan Communication Ability: Effective Driver'S Education Instructor Required: No Beliefs That Will Affect Care: None Current Living Situation: Spouse Other Information That Helps Us Care for You: No Feels Safe at Home: Yes Safety Concerns: Feels Safe At This Time Dental Care, Regularly: Yes Seatbelt Use: always Sunscreen Use: Yes Assistive Devices: Walker Review of Systems Review of Systems: All systems reviewed & are unremarkable except as noted in HPI & below Physical Exam Constitutional: WD/WN, vitals as above Eyes: + conjunctival abnormality (pale) ENMT: external ear and nose normal, oropharynx normal Respiratory: normal respiratory effort, lungs clear to auscultation Cardiovascular: Rate/Rhythm: regular rate and regular rhythm Heart Sounds: no murmur Extremities: normal capillary refill; no calf tenderness and no pedal edema Gastrointestinal (Abdomen): normal bowel sounds, soft, nontender, no hepatosplenomegaly Musculoskeletal: no cyanosis or clubbing, extremities motor strength 5/5 Skin: no rashes, warm and dry Neurologic: moves all extremities and awake; not confused Psychiatric: A+Ox3, euthymic affect Results & Data Results & Data Vital Signs (Past 12 Hours) Vital Signs Temp Pulse Pulse Resp BP BP Pulse Ox 08/25/23 13:03 94 H 18 129/57 L 97 08/25/23 11:55 96 08/25/23 11:37 88 08/25/23 11:35 36.7 C 82 18 141/82 H 97 O2 Del Method 08/25/23 13:03 Room Air 08/25/23 11:55 Room Air 08/25/23 11:37 08/25/23 11:35 Room Air Laboratory Results Abnormal lab results 08/25/23 08/25/23 08/25/23 Range/Units 11:40 11:55 12:33 RBC 1.82 L (4.20-5.40) M/uL Hgb 5.8 L* (12.0-16.0) g/dl Hct 17.7 L* (37.0-47.0) % RDW Std Deviation 52.2 H (36.4-46.3) fL RDW Coeff of Daljit 15.9 H (11.5-14.5) % Plt Count 418 H (130-400) K/uL MPV 8.6 L (9.4-12.4) fL Neut # (Auto) 7.15 H (1.40-6.50) K/uL Lymph # (Auto) 1.12 L (1.20-3.40) K/uL [place] # (Auto) 0.62 H (0.11-0.59) K/uL Potassium 3.3 L (3.5-5.1) mmol/L BUN 42 H (6-23) mg/dl BUN/Creatinine Ratio 46.7 H (10-20) Glucose 147 H (70-99(Fasting)) mg/dl Globulin 2.2 L (2.5-4.0) gm/dl POC Stool Occult Blood Positive A (Negative) Crossmatch See Detail Diagnostic Findings None Medications Administered ER medications given: Pantoprazole 80 mg bolus and drip Type and cross for 4 units with 2 units to transfuse now ECG Rate (beats per minute): 94 Rhythm: other (Atrial sensed ventricular paced rhythm with prolonged AV conduction) Findings: no acute ischemic change Comparison ECG Date: from (September 24, 2022) Change: no significant change Code Status & VTE Plan Code Status Full VTE Prophylaxis Plan VTE Prophylaxis will be ordered: No PG Care Time/CCT Total # of Minutes Spent Total Time Spent: 70 Total Time Spent with Patient: Total time spent is greater than 50% in coordination of care (as documented) at patient's floor/unit and/or counseling patient: Coding Level of Care Code 71597 INT INP/OBS CARE 3/75MIN Diagnoses Acute GI bleeding K92.2 Acute blood loss anemia D62 Status post right knee replacement Z96.651 Hypothyroidism E03.9 Type 2 diabetes mellitus with microalbuminuria, with long-term current use of insulin E11.29; R80.9; Z79.4 Hypokalemia E87.6 Cardiomyopathy I42.9 Hypertension I10 Anxiety F41.9
--- NOTE | 2023-08-25 14:09 | XRay Report ---
XR chest 1V portable CLINICAL HISTORY: dizziness, GI bleed ?air under diaphragm TECHNIQUE: Single frontal radiograph of the chest was obtained. Comparison: Comparison is made to chest radiograph 09/24/2022 FINDINGS: Exam is limited by underpenetration. The cardiomediastinal silhouette is normal. The lungs are clear. No evidence of pleural effusion or pneumothorax. There is eventration of the right hemidiaphragm. No pneumoperitoneum is seen. IMPRESSION: No evidence of pneumoperitoneum. No acute abnormalities. ACT 112: Negative or not required by law. Electronically signed by: Donn Modi M.D. 08/25/2023 2:07 PM
[2023-08-25 14:39] LABS: Folate (Folic Acid),Ser orPlas 11.42 ng/ml (>5.38)
[2023-08-25] MEDS ORDERED: LORazepam 0.5 MG in SYRINGE 0.25 ML IV STA (14:56)
[2023-08-25] MEDS ORDERED: GLUCOSE 10 TAB/TUBE PO PRN (15:08)
[2023-08-25] MEDS ORDERED: GLUCOSE 40% GEL 15 GM TUBE PO PRN (15:08)
[2023-08-25] MEDS ORDERED: GLUCAGON FOR INJ 1 MG VIAL SQ PRN (15:08)
[2023-08-25] MEDS ORDERED: DEXTROSE 50% 50 ML SYRINGE IV PRN (15:08)
[2023-08-25] MEDS ORDERED: CARBOHYDRATES FOR HYPOGLYCEMIA PO PRN (15:08)
[2023-08-25] MEDS: INSULIN ASPART PER UNIT CHARGE SC SCH ×2 (17:20→21:46)
[2023-08-25] MEDS: LABETALOL HCL 100 MG TAB PO SCH (20:57)
[2023-08-25] MEDS ORDERED: LORazepam 1 MG/1 ML SYR ED Inj Use ONE (21:19)
[2023-08-25] MEDS: LORazepam 0.5 MG in SYRINGE 0.25 ML IV PRN (21:23)
[2023-08-25 22:05] LABS: Hematocrit (blood only) 24.9 % (37.0-47.0); Hemoglobin 8.2 g/dl (12.0-16.0)
[2023-08-26] MEDS: POTASSIUM CHLORIDE / WTR 10 MEQ/100 ML PLCT IV SCH ×2 (00:32→01:19)
[2023-08-26] MEDS: LORazepam 0.5 MG in SYRINGE 0.25 ML IV PRN ×2 (03:26→10:47)
[2023-08-26 03:51] LABS: Basophils # (auto) 0.01 K/uL (0.00-0.20); Basophils % (auto) 0.1 %; Eosinophils # (auto) 0.11 K/uL (0.00-0.50); Eosinophils % (auto) 1.5 %; Hematocrit (blood only) 24.2 % (37.0-47.0); Hemoglobin 7.9 g/dl (12.0-16.0); Immature Granulocytes # (auto) 0.04 K/uL (0.01-0.20); Immature Granulocytes % (auto) 0.6 %; Lymphocytes # (auto) 1.04 K/uL (1.20-3.40); Lymphocytes % (auto) 14.4 %; Mean Corpuscular Hgb Conc 32.6 g/dL (32.0-36.0); Mean Platelet Volume 8.5 fL (9.4-12.4); Monocytes # (auto) 0.66 K/uL (0.11-0.59); Monocytes % (auto) 9.2 %; Neutrophils # (auto) 5.34 K/uL (1.40-6.50); Neutrophils % (auto) 74.2 %; Platelet Count 372 K/uL (130-400); RDW Coefficient of Variation 16.2 % (11.5-14.5); RDW Standard Deviation 48.5 fL (36.4-46.3); Red Blood Count 2.63 M/uL (4.20-5.40)
[2023-08-26 04:03] LABS: Albumin Globulin Ratio 1.8 (0.9-2); Albumin Level 3.7 gm/dl (3.4-5.0); Bilirubin,Total 0.7 mg/dl (0.2-1.0); Calcium 8.8 mg/dl (8.6-10.3); Creatinine Clr Calc Pharmacy 51.9 ml/min; Est GFR (African American) 68.1 ml/min; Est GFR (Non-African American) 58.8 ml/min; Globulin 2.1 gm/dl (2.5-4.0); Magnesium 1.3 mg/dl (1.7-2.4); Potassium 3.4 mmol/L (3.5-5.1); Total Protein 5.8 gm/dl (6.0-8.3)
[2023-08-26 04:55] LABS: Polychromasia 1+
[2023-08-26] MEDS: PANTOprazole 40 MG in DEXTROSE 5% MINI-B 100 ML IV SCH ×2 (04:57→10:13)
[2023-08-26] MEDS: LEVOTHYROXINE SODIUM 125 MCG TABLET PO SCH (04:58)
[2023-08-26 06:30] LABS: Hematocrit (blood only) 23.7 % (37.0-47.0)
[2023-08-26] MEDS: ACETAMINOPHEN 325 MG TAB PO PRN ×2 (08:15→18:13)
[2023-08-26] MEDS: LABETALOL HCL 100 MG TAB PO SCH ×2 (08:15→21:06)
[2023-08-26] MEDS: INSULIN ASPART PER UNIT CHARGE SC SCH ×4 (08:20→21:48)
[2023-08-26] MEDS ORDERED: CYANOCOBALAMIN 1000 MCG/ML VIAL IM SCH (09:00)
--- NOTE | 2023-08-26 09:14 | Gastrointestinal Consultation ---
Date of Consultation August 26, 2023 Assessment & Plan (1) Acute GI bleeding: (2) Acute blood loss anemia: Plan Patient with acute blood loss anemia and melena in the setting of heavy nsaid use. Discussed case with Dr. Motta who advised on plan. - set the patient up for EGD for today to further evaluate. discussed with patient and family and they agree to proceed. - continue with Protonix drip at this time. - continue to monitor hgb/hct and transfuse as needed. - we discussed avoidance of nsaids. Supervising Physician Co-Signing Physician Notes Agree with TEMO Shaw as above Abd: Soft, NT, ND, +BS Continue current therapy and supportive care Proceed with EGD now History of Present Illness Reason for Consultation: Acute GI bleed Requesting Physician: Henrry Finn MD Attending Physician: Diaz Johnson, History of Present Illness Patient is a 72 year old female who presents to the ER via EMS for dizziness and black stool since Friday. She has a history of right knee replacement performed by Dr Herron on August 08. She reports initially doing well after this up until Friday when her darker stools started. About a week before her melena started she admits that she had increased the amount of aleve she was using and was using this about every 8 hours. She tells me that since Friday she was having several bowel movements daily and is unable to quantify this. She admits that since Friday that her stools have been improving. She did develop weakness/dizziness which is why she decided to come to the ED for evaluation. Upon work up in the ED she was found to have a hgb of 5.8. She is s/p 2 units of PRBC and her counts currently are 8. Patient denies any current issues with nausea, vomiting, dysphagia, heartburn, abdominal pain, unintentional weight loss, or bright red blood per rectum. Colonoscopy 2021 diverticulosis, internal hemorrhoids, and tubular adenoma colon polyp. She tells me that she did have an EGD 30 years ago revealing a diverticulum. Allergies Allergy/AdvReac Type Severity Reaction Status Date / Time nifedipine Allergy Unknown TACHYCARDIA Verified 08/25/23 15:35 metoclopramide [From Reglan] AdvReac Intermediate Anxiety Verified 08/25/23 15:35 oxycodone AdvReac Mild VOMITING Verified 08/25/23 15:35 Home Medications Medication Instructions Recorded Confirmed Type nystatin 100,000 unit/gram topical 1 applic topical TID PRN Rash 04/30/21 08/25/23 History powder nystatin-triamcinolone 100,000 1 applic topical BID PRN Rash 04/30/21 08/25/23 History unit/g-0.1 % topical cream levothyroxine 125 mcg tablet 125 mcg PO QAM 07/29/22 08/25/23 History amoxicillin 500 mg tablet 2,000 mg (4 x 500 mg) PO ONCE #4 01/10/23 08/25/23 Rx tabs labetalol 100 mg tablet 100 mg PO BID #180 tabs 04/08/23 08/25/23 Rx citalopram 10 mg tablet 10 mg PO QAM 06/16/23 08/25/23 History insulin glargine 100 unit/mL (3 20 unit (0.2 mL) subcut QPM #20 mL 06/24/23 08/25/23 Rx mL) subcutaneous pen (Lantus Solostar U-100 Insulin) lorazepam 0.5 mg tablet 0.5 mg PO DAILY PRN Anxiety #30 06/24/23 08/25/23 Rx tabs chlorthalidone 25 mg tablet 25 mg PO QAM #90 tabs 08/05/23 08/25/23 Rx amlodipine 10 mg tablet 10 mg PO QPM #90 tabs 08/06/23 08/25/23 Rx atorvastatin 80 mg tablet 80 mg PO QPM #90 tabs 08/06/23 08/25/23 Rx losartan 25 mg tablet 25 mg PO QPM #90 tabs 08/06/23 08/25/23 Rx metformin 500 mg tablet,extended 1,000 mg (2 x 500 mg) PO BID #360 08/06/23 08/25/23 Rx release 24hr (osmotic) tabs pen needle, diabetic 31 gauge x #100 ea 08/06/23 Rx 1/" (Easy Comfort Pen [place]) cyanocobalamin (vitamin B-12) 1,000 mcg PO DAILY #30 caps 08/26/23 Rx 1,000 mcg capsule Patient History Medical History (Updated 08/26/23 @ 07:26 by Henrry Finn MD) Sciatica CKD (chronic kidney disease), stage III creat stable around 0.96 (eGFR 59.5) Hypothyroidism controlled with medication Anxiety 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 Pt notes that her father was also labeled 'difficult intubation'. Type 2 diabetes mellitus with microalbuminuria, with long-term current use of insulin Ha1c 07/25/23: 8.0% Mitral regurgitation Mild MR per 05/2023 ECHO Complete heart block S/p pacemaker placement 2016 (Medtronic); she is pacer-dependent (100% V paced per 06/2023 report) Surgical History (Updated 08/10/23 @ 00:10 by Edgar Hackett) Status post right knee replacement History of total left knee replacement (TKR) L TKA 10/25/22: SAB L3-L4 (x 2 attempts), PNB, MAC; no issues noted Cardiac pacemaker Placed 2016 - -medtronic - checked monthly -- follows with Dr. Hair. History of esophagogastroduodenoscopy (EGD) H/O section x2 H/O umbilical hernia repair x2 H/O colonoscopy 08/08/22 [facility] H/O wisdom tooth extraction History of tonsillectomy and adenoidectomy Family History Aunt Breast cancer Maternal Father Hx of CABG Grandmother (Maternal) Colorectal cancer Mother Diabetes Other No family history of adverse response to anesthesia Denies family history of Ovarian cancer Social History Smoking Status: Former smoker Tobacco Type: Cigarettes Age Started Using Tobacco: 21; Second Hand Exposure: No; Do You Dip or Chew Tobacco: No; Tobacco Cessation Education Requested by Patient: No Hx Alcohol Use: No Hx Substance Use: No Preferred Language: Spanish Communication Ability: Effective Physiotherapy Aide Required: No Beliefs That Will Affect Care: None Current Living Situation: Spouse Other Information That Helps Us Care for You: No Feels Safe at Home: Yes Safety Concerns: Feels Safe At This Time Dental Care, Regularly: Yes Seatbelt Use: always Sunscreen Use: Yes Assistive Devices: None Review of Systems Review of Systems: All systems reviewed & are unremarkable except as noted in HPI & below Physical Exam Constitutional: WD/WN, vitals as above Respiratory: normal respiratory effort, lungs clear to auscultation Cardiovascular: RRR, no murmur, no edema Gastrointestinal (Abdomen): normal bowel sounds, soft, nontender, no hepatosplenomegaly Skin: no rashes, warm and dry Psychiatric: Orientation: alert and oriented x 3 Affect: euthymic affect Results & Data Vital Signs (Past 12 Hours) Vital Signs Temp Pulse Pulse Pulse Resp BP BP 08/26/23 07:54 97.7 F 85 18 160/76 H 08/26/23 04:00 98.1 F 83 18 136/66 08/25/23 23:32 98.1 F 87 18 159/81 H 08/25/23 22:38 85 08/25/23 21:30 86 18 136/75 Pulse Ox O2 Del Method 08/26/23 07:54 98 Room Air 08/26/23 04:00 97 Room Air 08/25/23 23:32 97 Room Air 08/25/23 22:38 08/25/23 21:30 96 Room Air PG Care Time/CCT Total # of Minutes Spent Total Time Spent with Patient: Total time spent is greater than 50% in coordination of care (as documented) at patient's floor/unit and/or counseling patient: Coding Level of Care Code 28352 INT INP/OBS CARE 2/55MIN Diagnoses Acute GI bleeding K92.2 Acute blood loss anemia D62
--- NOTE | 2023-08-26 10:32 | Anesthesiology Consultation ---
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 Consults Requested none Proposed Anesthesia Anesthesia Type: MAC History Surgery Operation Date: 08/26/23 16:45 Proposed Procedures p Esophagogastroduodenoscopy Dr Motta - Ryan Perez Case, DO Height/Weight Height: 5 ft 2 in Weight: 79.5 kg Allergies Allergy/AdvReac Type Severity Reaction Status Date / Time nifedipine Allergy Unknown TACHYCARDIA Verified 08/25/23 15:35 metoclopramide [From Reglan] AdvReac Intermediate Anxiety Verified 08/25/23 15:35 oxycodone AdvReac Mild VOMITING Verified 08/25/23 15:35 Medications Home Medications Medication Instructions Recorded Confirmed Last Taken nystatin 100,000 unit/gram topical 1 applic topical TID PRN Rash 04/30/21 08/25/23 10/18/22 07:00 powder nystatin-triamcinolone 100,000 1 applic topical BID PRN Rash 04/30/21 08/25/23 10/18/22 07:00 unit/g-0.1 % topical cream levothyroxine 125 mcg tablet 125 mcg PO QAM 07/29/22 08/25/23 08/24/23 amoxicillin 500 mg tablet 2,000 mg (4 x 500 mg) PO ONCE #4 01/10/23 08/25/23 07/25/23 tabs labetalol 100 mg tablet 100 mg PO BID #180 tabs 04/08/23 08/25/23 08/25/23 citalopram 10 mg tablet 10 mg PO QAM 06/16/23 08/25/23 08/24/23 insulin glargine 100 unit/mL (3 20 unit (0.2 mL) subcut QPM #20 mL 06/24/23 08/25/23 08/24/23 mL) subcutaneous pen (Lantus Solostar U-100 Insulin) lorazepam 0.5 mg tablet 0.5 mg PO DAILY PRN Anxiety #30 06/24/23 08/25/23 Unknown tabs chlorthalidone 25 mg tablet 25 mg PO QAM #90 tabs 08/05/23 08/25/23 08/24/23 amlodipine 10 mg tablet 10 mg PO QPM #90 tabs 08/06/23 08/25/2308/24/23 atorvastatin 80 mg tablet 80 mg PO QPM #90 tabs 08/06/23 08/25/23 08/24/23 losartan 25 mg tablet 25 mg PO QPM #90 tabs 08/06/23 08/25/23 08/24/23 metformin 500 mg tablet,extended 1,000 mg (2 x 500 mg) PO BID #360 08/06/23 08/25/23 08/24/23 release 24hr (osmotic) tabs pen needle, diabetic 31 gauge x #100 ea 08/06/23 Unknown 09/11" (Easy Comfort Pen [place]) cyanocobalamin (vitamin B-12) 1,000 mcg PO DAILY #30 caps 08/26/23 Unknown 1,000 mcg capsule Active Medications Generic Name Dose Route Start Last Admin Trade Name Freq PRN Reason Stop Dose Admin Acetaminophen 650 mg 08/26/23 07:46 08/26/23 08:15 Acetaminophen 325 Mg Tab PO 09/25/23 07:45 650 mg Q6H PRN Administration Pain Cyanocobalamin 1,000 mcg 08/26/23 09:00 08/26/23 09:10 Cyanocobalamin 1000 Mcg/Ml Vial IM 09/25/23 08:59 1,000 mcg QAM LYNETTE Administration Pantoprazole Sodium 40 mg/ 100 mls @ 20 mls/hr 08/25/23 12:15 08/26/23 10:13 Dextrose IV 09/24/23 12:14 8 mg/hr Q5H LYNETTE 20 mls/hr Administration 8 MG/HR Lorazepam 0.5 mg/ Syringe 0.5 mls @ 2 mls/min 08/25/23 20:00 08/26/23 03:26 IV 09/24/23 19:59 2 mls/min Q6H PRN Administration Anxiety/Agitation Insulin Aspart 0 units 08/25/23 16:30 08/26/23 08:20 Insulin Aspart Per Unit Charge SC 09/24/23 16:29 1 units ACHS LYNETTE Administration Labetalol HCl 100 mg 08/25/23 21:00 08/26/23 08:15 Labetalol Hcl 100 Mg Tab PO 09/24/23 20:59 100 mg BID LYNETTE Administration Levothyroxine Sodium 125 mcg 08/26/23 06:30 08/26/23 04:58 Levothyroxine Sodium 125 Mcg Tablet PO 09/25/23 06:29 125 mcg DAILYBB LYNETTE Administration Past Medical History Medical History (Updated 08/26/23 @ 07:26 by Henrry Finn MD) Sciatica CKD (chronic kidney disease), stage III creat stable around 0.96 (eGFR 59.5) Hypothyroidism controlled with medication Anxiety 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 Pt notes that her father was also labeled 'difficult intubation'. Type 2 diabetes mellitus with microalbuminuria, with long-term current use of insulin Ha1c 07/25/23: 8.0% Mitral regurgitation Mild MR per 05/2023 ECHO Complete heart block S/p pacemaker placement 2016 (Medtronic); she is pacer-dependent (100% V paced per 06/2023 report) Past Family History Family History Aunt Breast cancer Maternal Father Hx of CABG Grandmother (Maternal) Colorectal cancer Mother Diabetes Other No family history of adverse response to anesthesia Denies family history of Ovarian cancer Past Surgical History Surgical History (Updated 08/10/23 @ 00:10 by Edgar Hackett) Status post right knee replacement History of total left knee replacement (TKR) L TKA 10/25/22: SAB L3-L4 (x 2 attempts), PNB, MAC; no issues noted Cardiac pacemaker Placed 2016 - -medtronic - checked monthly -- follows with Dr. Hair. History of esophagogastroduodenoscopy (EGD) H/O section x2 H/O umbilical hernia repair x2 H/O colonoscopy 08/08/22 [facility] H/O wisdom tooth extraction History of tonsillectomy and adenoidectomy Social History Smoking Status: Former smoker Do You Dip or Chew Tobacco: No Hx Alcohol Use: No Alcohol type: wine alcohol intake frequency: holidays/special occasions only Hx Substance Use: No substance use type: does not use Physical Exam Vital Signs Last Vital Signs Temp 36.5 C 08/26/23 07:54 Pulse 85 08/26/23 07:54 Resp 18 08/26/23 07:54 BP 160/76 H 08/26/23 07:54 Pulse Ox 98 08/26/23 07:54 O2 Del Method Room Air 08/26/23 07:54 O2 Flow Rate 0 08/25/23 15:05 Testing Laboratory Results 08/26/23 05:26 08/26/23 03:21 PT 11.1 Seconds (9.0-12.0) 08/25/23 11:40 INR 1.0 (0.9-1.1) 08/25/23 11:40 APTT 23 Seconds (21-31) 08/25/23 11:40 Blood Type AB Positive 08/25/23 12:33 Antibody Screen NEGATIVE 08/25/23 12:33 08/26/23 08:16 POC Glucose 158 H
--- NOTE | 2023-08-26 11:14 | Hospitalist Progress Note ---
Date of Service August 26, 2023 Assessment & Plan (1) Acute GI bleeding: Plan: - Likely related to NSAID use for pain control after her right knee surgery on 08/08/23 - Started IV Pantoprazole - GI consult To conduct EGD today - Patient not feeling nauseous and tolerating clear diet. Will progress diet and see if she tolerates it. (2) Acute blood loss anemia: Plan: - Hgb 5.8 on admission s/p 2 units PRBC with improvement of Hgb to 8 - Will monitor CBC (3) Status post right knee replacement: Plan: - Informed Dr. Herron of admission - consult placed for possible staple removal (4) Hypothyroidism: Plan: - TSH 4.379 in March 2023 - Continue levothyroxine 125 mcg p.o. daily (5) Type 2 diabetes mellitus with microalbuminuria, with long-term current use of insulin: Plan: Hemoglobin A1c 8.0 in July, no need to repeat this Novolog: --Goal BSG Range: Low 110 mg/dL, High 140 mg/dL --Correction Factor: 45 mg/dL/unit No carbohydrate ratio --BSGs ACHS if eating, q6h if npo Will add Lantus pending serial glucose measurements (6) Hypokalemia: Plan: - K+ this morning 3.4 - Mg this morning 1.3 Will replace - Monitor with CMP (7) Cardiomyopathy: Plan: - LVEF 45 to 50% (8) Hypertension: Plan: - Continue labetalol 100mg PO BID - BP stable. Will continue to hold anti-hypertensives for now (Amlodipine 10mg daily, Losartan 25mg daily) (9) Anxiety: Plan: - Restart citalopram 10mg daily (10) Vitamin B12 deficiency: Plan: - Vitamin B12 level on ED labs showing level of 150 - Patient not having neurological symptoms - Plan for outpatient oral supplementation with OTC supplements of 1000mcg daily, then follow up labs in 2 weeks to discuss with PCP in post discharge evaluation. Plan VTE prophylaxis - chemical contraindicated in setting of acute GI bleed Diet - DM-II; HH Disposition - If she tolerates her diet and Hgb remains stable, anticipate discharge tomorrow Admission and Anticipated Discharge Date Admission Date: August 25, 2023 Supervising Physician Co-Signing Physician Notes I personally examined the patient and verified all schofield points of history and exam, discussed case, and agree with decision making with Dr Vaughan feeling better. seen post scope. updated on findings. britton ntoed nad heent nc at mmm breathing unlabored no accessory muscles good effort skin no rashes no pallor or icterus PUD w upper GI bleeding and subsequent acute blood loss anemia - now stable on PPI and s/p 2units transfusion - stable. PO PPI. resume diet. hopefully home tomorrow otherwise as above Desi Carter is a pleasant 72 y/o female with history of recent total right knee replacement on 08/08/23 who arrived to the ED via EMS due to worsening dizziness since Friday (08/22/23). Since around this time, she had also noticed darker and softer stools, which has persisted. After her procedure she was receiving systemic steroids as well as Toradol, and afterwards she was taking Advil for pain control. Prior to this, she had not noticed any dark stools. Hgb in the ED was found to be 5.8, for which she received transfusion of 2 units of PRBC. Today she was evaluated at bedside and found to be aaox3, clinically and hemodynamically stable, and in no acute distress. She refers having some more solid stool that are still dark but not as dark as they were when they began on Friday. She has ambulated to the bathroom and back and has not felt dizzy or lightheaded. She states she has been feeling better. Denies chest pain, SOB, fevers, chills, malaise, or any other symptom. Review of Systems Review of Systems: As per HPI. Physical Exam Physical Exam: General: Alert. Oriented to person, time, and place. Afebrile. No acute distress. Eyes: pupils equal and reactive to light bilaterally, extraocular movements intact. Cardiac: Regular rate and rhythm, no murmurs/rubs/gallops. Respiratory: Clear to auscultation bilaterally a/p, no wheezes/rales/rhonchi. No increased work of breathing. Symmetrical chest rise. No respiratory distress. Abdomen: Soft, nontender, nondistended. Bowel sounds present. Lower Extremities: No lower extremity edema or swelling. No deep calf pain. Shyam's negative bilaterally. Psych: Euthymic affect. Mood and affect congruence. Regular speech rate and content. Results & Data Results & Data Vital Signs (Past 12 Hours) Vital Signs Temp Pulse Pulse Pulse Resp BP Pulse Ox 08/26/23 07:54 36.5 C 85 18 160/76 H 98 08/26/23 06:00 88 08/26/23 04:00 36.7 C 83 18 136/66 97 08/25/23 23:32 36.7 C 87 18 159/81 H 97 O2 Del Method 08/26/23 07:54 Room Air 08/26/23 06:00 08/26/23 04:00 Room Air 08/25/23 23:32 Room Air Resident Activity Tracking Resident Involvement: Resident Care Provided Care Provided: Adult Hospital Medicine
--- NOTE | 2023-08-26 11:43 | Surgery Progress Note ---
Date of Service August 26, 2023 Assessment & Plan (1) Status post right knee replacement: Plan: 72-year-old female 2 and half weeks out from right knee replacement admitted with severe anemia and GI bleed. She is doing much better since transfusion. Her pain is controlled. And her knees been doing fine. Plan: 1. Wound care. Working to take her timothy out today and Steri-Stripped her wound. 2. PT/OT. Will resume physical therapy. Orders been written. 3. Medical management as per the medicine and the GI service. 4. DVT prophylaxis. Will have to stick to thigh-high teds and SCDs. I do not think she is a candidate for chemical prophylaxis considering this GI bleed. 5. Disposition. She is obviously getting needed medical management in the hospital here for a brief period of time. I believe GI is going to do some intervention/evaluation with endoscopy. Definitive disposition will be based on their findings. (2) Acute GI bleeding: Admission and Anticipated Discharge Date Admission Date: August 25, 2023 Subjective 72-year-old female 2 and half weeks out from a right knee replacement. That she done quite well postoperatively.Several days ago she started to feeling poorly and started having black tarry stools. She felt terrible yesterday and went to the ER. X-rays revealed very low hematocrit and guaiac positive stools consistent with a GI bleed. She has been admitted and transfused. As she is feeling quite a bit better but not great. Really not much in the way knee pain. Knees been doing well all along. Physical Exam Physical Exam: Physical examination was a pleasant middle-age female. She is lying in bed talking to her daughter. She looks comfortable. Examination the right knee reveals to be well aligned. Fairly mild swelling. She can do a good straight leg raise. Range of motion 0-90. She is neurologically intact. Results & Data Vital Signs (Past 12 Hours) Vital Signs Temp Pulse Pulse Pulse Resp BP Pulse Ox 08/26/23 11:22 36.8 C 76 18 129/63 95 08/26/23 07:54 36.5 C 85 18 160/76 H 98 08/26/23 06:00 88 08/26/23 04:00 36.7 C 83 18 136/66 97 O2 Del Method 08/26/23 11:22 Room Air 08/26/23 07:54 Room Air 08/26/23 06:00 08/26/23 04:00 Room Air PG Care Time/CCT Total # of Minutes Spent Total Time Spent with Patient: Total time spent is greater than 50% in coordination of care (as documented) at patient's floor/unit and/or counseling patient: Coding Level of Care Code 55391 Post Operative Follow-Up Diagnoses Status post right knee replacement Z96.651 Acute GI bleeding K92.2
[2023-08-26] MEDS ORDERED: PROPOFOL IV EMULSION 10 MG/ML 20 ML VIAL IV ONE (12:11)
[2023-08-26] MEDS ORDERED: LIDOCAINE 2% 2 ML VIAL/AMP(20MG/ML) INFIL ONE (12:11)
[2023-08-26] MEDS ORDERED: fentaNYL citrate PF 100 MCG/2 ML VIAL ONE (12:12)
--- NOTE | 2023-08-26 12:39 | GI REPORT ---
Patient Name: Emma Coon Procedure Date: 08/26/2023 12:19 PM Date of : 1950 Admit Type: Inpatient Age: 72 Gender: Female Attending MD: Ryan Motta DO, Procedure: Upper GI endoscopy Providers: Ryan Motta DO Referring MD: Diaz Johnson Indications: Acute post hemorrhagic anemia, Melena Medicines: Monitored Anesthesia Care Complications: No immediate complications. Estimated Blood Loss: Estimated blood loss: none. Procedure: Pre-Anesthesia Assessment: - Prior to the procedure, a History and Physical was performed, and patient medications and allergies were reviewed. The patient's tolerance of previous anesthesia was also reviewed. The risks and benefits of the procedure and the sedation options and risks were discussed with the patient. All questions were answered, and informed consent was obtained. Prior Anticoagulants: The patient has taken no anticoagulant or antiplatelet agents. ASA Grade Assessment: III - A patient with severe systemic disease. After reviewing the risks and benefits, the patient was deemed in satisfactory condition to undergo the procedure. After obtaining informed consent, the endoscope was passed under direct vision. Throughout the procedure, the patient's blood pressure, pulse, and oxygen saturations were monitored continuously. The Endoscope was introduced through the mouth, and advanced to the second part of duodenum. The upper GI endoscopy was accomplished without difficulty. The patient tolerated the procedure well. Findings: One benign-appearing, intrinsic mild stenosis was found 38 cm from the incisors. This stenosis measured 1.6 cm (inner diameter) x less than one cm (in length). The stenosis was traversed. Localized moderate inflammation characterized by erosions and erythema was found in the gastric antrum. Biopsies were taken with a cold forceps for histology. Four non-bleeding cratered duodenal ulcers with no stigmata of bleeding were found in the duodenal bulb and in the second portion of the duodenum. The largest lesion was 10 mm in largest dimension. Impression: - Benign-appearing esophageal stenosis. - Gastritis. Biopsied. - Non-bleeding duodenal ulcers with no stigmata of bleeding. Recommendation: - Resume previous diet. - Continue present medications. - Await pathology results. - Return to primary care physician as previously scheduled. Ryan Motta DO 08/26/2023 12:38:35 PM This report has been signed electronically. Note Initiated On: 08/26/2023 12:19 PM Number of Addenda: 0 I attest to the content of the Intraoperative Record and orders documented therein, exceptions below {[id number]}
[2023-08-26] MEDS: PANTOprazole 40 MG TAB PO SCH ×2 (14:15→21:06)
--- NOTE | 2023-08-26 14:47 | Anesthesiology Progress Note ---
Date of Service August 26, 2023 Anesthesia Post Procedure Vital Signs Vital Signs: Temp Pulse Pulse Pulse Resp BP BP 08/26/23 13:37 36.7 C 86 14 133/72 08/26/23 13:08 86 87 16 08/26/23 12:54 86 16 08/26/23 12:39 90 14 08/26/23 11:52 36.4 C L 83 16 08/26/23 11:22 36.8 C 76 18 08/26/23 07:54 36.5 C 85 18 08/26/23 06:00 88 08/26/23 04:00 36.7 C 83 18 08/25/23 23:32 36.7 C 87 18 08/25/23 22:38 85 08/25/23 21:30 86 18 136/75 08/25/23 20:00 36.9 C 94 H 18 153/79 H 08/25/23 19:00 36.8 C 88 18 136/75 08/25/23 18:30 37.1 C 91 H 18 157/86 H 08/25/23 18:00 37 C 95 H 18 139/70 08/25/23 17:30 37 C 95 H 18 136/70 08/25/23 16:57 36.9 C 100 H 18 146/81 H 08/25/23 16:42 37.0 C 101 H 16 136/72 08/25/23 16:42 37.0 C 95 H 18 136/72 08/25/23 16:25 37.1 C 93 H 16 141/76 H 08/25/23 16:09 08/25/23 16:00 91 H 18 137/83 08/25/23 15:59 36.7 C 90 18 145/78 H 08/25/23 15:44 90 08/25/23 15:05 36.7 C 92 H 18 160/83 H BP Pulse Ox O2 Del Method O2 Del Method O2 Flow Rate 08/26/23 13:37 99 Room Air 08/26/23 13:08 155/86 H 97 Room Air 08/26/23 12:54 143/78 H 98 Room Air 08/26/23 12:39 131/68 92 Room Air 08/26/23 11:52 168/92 H 96 Room Air 08/26/23 11:22 129/63 95 Room Air 08/26/23 07:54 160/76 H 98 Room Air 08/26/23 06:00 08/26/23 04:00 136/66 97 Room Air 08/25/23 23:32 159/81 H 97 Room Air 08/25/23 22:38 08/25/23 21:30 96 Room Air 08/25/23 20:00 97 Room Air 08/25/23 19:00 98 08/25/23 18:30 99 08/25/23 18:00 98 08/25/23 17:30 96 08/25/23 16:57 98 08/25/23 16:42 94 08/25/23 16:42 94 08/25/23 16:25 97 08/25/23 16:09 Room Air 08/25/23 16:00 98 Room Air 08/25/23 15:59 98 08/25/23 15:44 08/25/23 15:05 97 0 Transfer of Care Handoff Completed per policy Notes Mental Status: alert / awake / arousable and participated in evaluation Patient Amnestic to Procedure: Yes Nausea / Vomiting: adequately controlled Pain: adequately controlled Airway Patency, RR, SpO2: stable & adequate BP & HR: stable & adequate Hydration State: stable & adequate Anesthetic Complications: no major complications apparent
--- NOTE | 2023-08-26 17:07 | Billing Data ---
Date of Service August 26, 2023 Coding Level of Care Code 62746 SUB INP/OBS CARE MIN
--- NOTE | 2023-08-26 17:07 | Billing Data ---
Date of Service August 26, 2023 Coding Level of Care Code 70316 SUB INP/OBS CARE MIN
[2023-08-27] MEDS: ACETAMINOPHEN 325 MG TAB PO PRN ×2 (00:16→12:45)
[2023-08-27] MEDS: MAGNESIUM SULFATE / D5W 1 GM/100 ML BAG IV SCH ×2 (03:02→05:07)
[2023-08-27] MEDS: LEVOTHYROXINE SODIUM 125 MCG TABLET PO SCH (05:14)
[2023-08-27] MEDS: LORazepam 0.5 MG in SYRINGE 0.25 ML IV PRN (06:32)
[2023-08-27 07:35] LABS: Basophils # (auto) 0.02 K/uL (0.00-0.20); Basophils % (auto) 0.3 %; Eosinophils % (auto) 1.7 %; Hematocrit (blood only) 25.5 % (37.0-47.0); Hemoglobin 8.4 g/dl (12.0-16.0); Immature Granulocytes # (auto) 0.03 K/uL (0.01-0.20); Immature Granulocytes % (auto) 0.5 %; Lymphocytes # (auto) 1.08 K/uL (1.20-3.40); Lymphocytes % (auto) 18.8 %; Mean Corpuscular Hemoglobin 30.3 pg (25.0-34.0); Mean Corpuscular Hgb Conc 32.9 g/dL (32.0-36.0); Mean Corpuscular Volume 92.1 fL (80.0-100.0); Mean Platelet Volume 8.7 fL (9.4-12.4); Monocytes # (auto) 0.73 K/uL (0.11-0.59); Monocytes % (auto) 12.7 %; Neutrophils # (auto) 3.79 K/uL (1.40-6.50); Platelet Count 399 K/uL (130-400); RDW Coefficient of Variation 16.7 % (11.5-14.5); RDW Standard Deviation 51.5 fL (36.4-46.3); Red Blood Count 2.77 M/uL (4.20-5.40); White Blood Count 5.75 K/ul (4.8-10.8)
[2023-08-27] MEDS: PANTOprazole 40 MG TAB PO SCH (08:49)
[2023-08-27] MEDS: LABETALOL HCL 100 MG TAB PO SCH (08:49)
[2023-08-27] MEDS: INSULIN ASPART PER UNIT CHARGE SC SCH ×2 (08:51→12:40)
[2023-08-27] MEDS ORDERED: CITALOPRAM 20 MG TAB PO SCH (09:00)
--- NOTE | 2023-08-27 10:05 | Communication Note ---
Date of Service: August 27, 2023 Patient is feeling much better today. EGD 08/26/23 benign esophageal stenosis, gastritis, nonbleeding duodenal ulcer x 4. she is tolerating her diet. She had bowel movement today that was not as dark in color. rest of GI ros unremarkable. hgb today 8.4 which is stable. - will plan to follow up in our office on 09/11/22 at 11 am.
--- NOTE | 2023-08-27 11:07 | Discharge Summary ---
Date of Service August 27, 2023 Admission HPI Per Admitting Provider Emma Coon is a 72-year-old female who presents to the ER via EMS for dizziness and black stool since Friday. She has a significant history of right knee replacement performed by Dr Herron on August 08. She reports initially doing well after this up until Friday when her darker stools started. Since then she has had black stool but only small amounts until today when she had a lot more with associated significant lightheadedness while walking downstairs therefore decided to come to the ER. [place] were due to be removed today regarding her total knee replacement. No history of GI bleed, ulcer, reflux, heartburn, acid taste in mouth, chest pain or epigastric pain. Admission Exam Per Admitting Provider Constitutional: WD/WN, vitals as above Eyes: + conjunctival abnormality (pale) ENMT: external ear and nose normal, oropharynx normal Respiratory: normal respiratory effort, lungs clear to auscultation Cardiovascular: Rate/Rhythm: regular rate and regular rhythm Heart Sounds: no murmur Extremities: normal capillary refill; no calf tenderness and no pedal edema Gastrointestinal (Abdomen): normal bowel sounds, soft, nontender, no hepatosplenomegaly Musculoskeletal: no cyanosis or clubbing, extremities motor strength 5/5 Skin: no rashes, warm and dry Neurologic: moves all extremities and awake; not confused Psychiatric: A+Ox3, euthymic affect Principal Diagnosis peptic ulcer disease Discharge Exam General: Alert. Oriented to person, time, and place. Afebrile. No acute distress. Eyes: pupils equal and reactive to light bilaterally, extraocular movements intact. Cardiac: Regular rate and rhythm, no murmurs/rubs/gallops. Respiratory: Clear to auscultation bilaterally a/p, no wheezes/rales/rhonchi. No increased work of breathing. Symmetrical chest rise. No respiratory distress. Abdomen: Soft, nontender, nondistended. Bowel sounds present. Lower Extremities: No lower extremity edema or swelling. No deep calf pain. Shyam's negative bilaterally. Psych: Euthymic affect. Mood and affect congruence. Regular speech rate and content. Discharge Data Allergies Allergy/AdvReac Type Severity Reaction Status Date / Time nifedipine Allergy Unknown TACHYCARDIA Verified 08/25/23 15:35 metoclopramide [From Reglan] AdvReac Intermediate Anxiety Verified 08/25/23 15:35 oxycodone AdvReac Mild VOMITING Verified 08/25/23 15:35 Consultations 08/25/23 13:23 ED Decision to Admit Stat 08/25/23 15:08 Consult Gastroenterology Routine 08/26/23 06:42 Consult Orthopedic Surgery Routine Procedures Performed Operation Date: 08/26/23 16:45 Actual Procedures p EGD Biopsy Cytology - Ryan Perez Case, DO Hospital Course (1) Acute GI bleeding: Resolved - Likely related to NSAID use for pain control after her right knee surgery on 08/08/23 - On IV Pantoprazole during admission. Will continue for 3-4 months after discharge - GI consult Benign-appearing esophageal stenosis. Gastritis. Biopsied. Non-bleeding duodenal ulcers with no stigmata of bleeding. - Patient tolerated diet. (2) Acute blood loss anemia: Resolved - Hgb 5.8 on admission s/p 2 units PRBC with improvement of Hgb to 8 - Today's Hgb 8.4 -Patient asymptomatic (3) Status post right knee replacement: Acute, stable (4) Hypothyroidism: Chronic, stable - TSH 4.379 in March 2023 - Continue levothyroxine 125 mcg p.o. daily (5) Type 2 diabetes mellitus with microalbuminuria, with long-term current use of insulin: Chronic, stable - Hemoglobin A1c 8.0 in July, no need to repeat this - Continue home insulin (6) Hypokalemia: Resolved - Last K+ level 3.4 - Mg on admission 1.3 Replaced and Mg level after was 2.2 (7) Cardiomyopathy: Chronic, stable - LVEF 45 to 50% (8) Hypertension: Chronic, stable - Continue home anti-hypertensives (9) Anxiety: Chronic, stable - Continue citalopram 10mg daily (10) Vitamin B12 deficiency: New finding, stable - Vitamin B12 level on ED labs showing level of 150 - Patient not having neurological symptoms - Plan for outpatient oral supplementation with OTC supplements of 1000mcg daily, then follow up labs in 2 weeks to discuss with PCP in post discharge evaluation. Plan Patient found stable and fit to be discharged today. Total Time Total Time Spent Total Time Spent (In Minutes): <30 Discharge Plan Discharge Items Patient Disposition: Home - Self-Care Reason For Visit: ACUTE GI BLEED, ACUTE BLOOD LOSS ANEMIA Discharge Diagnosis: peptic ulcer disease Activity: Per Instructions section Non-emergency contact: Primary Care Provider and [employer] Call non-emergency contact if: your symptoms worsen Follow-up/Referrals: Nereida Luo MD [Primary Care Provider] - 09/02/23 10:00 am (Follow up with ISRAEL Barr on 09/02/23 @ 10:00) Diet: Carb Consistent or DM2 and Heart Healthy Addtl Attending Provider Instructions: You were admitted to the hospital for management of bleeding that was found to be coming from some ulcers in your duodenum (part of your intestines). The more likely reason for the formation of these ulcers is the overuse of NSAIDs (e.g. ibuprofen). For the near future, we advise you to avoid NSAIDs and use Tylenol for pain control instead. You were treated with intravenous Protonix (anti- acid). You will be continuing this medication in oral form for the next 3-4 months. Take Pantoprazole 40mg two times daily for the next 4 weeks, then take i t daily for 8 weeks. Also, we encourage you to limit your intake of very acidic or spicy foods since this may also exacerbate and irritate your ulcer. A discharge summary will be sent to your primary care physician to ensure continuity of care. Please bring this discharge summary with you to your next office appointment so that your provider can review it at that time. Follow-up appointments: Make a follow-up appointment with your PCP within the next week. It is very important that you follow up with them shortly after discharge from the hospital. Keep all your follow-up appointments as already scheduled. If you cannot make an appointment, notify your provider. Medications: Your medication list has been reviewed and reconciled upon discharge to ensure accuracy and continuity of care. An updated list of all your medications is included with your hospital discharge paperwork. Please review this list closely, and make note of any changes. If you have any issues filling these prescriptions, please call [phone] and ask to leave a message for Dr. Vaughan. Take your medications as instructed; do not skip a dose of your medicines. Make sure all of your doctors know every medicine you are taking (including [id number] medicines, vitamins, and supplements). Call your primary care provider before taking any new medicines (including over- the-counter medicines, vitamins, and supplements), because some of these may interact with your current medications, or may make your symptoms worse. Tell your primary care provider if you cannot afford your medications. CONTACT YOUR PRIMARY CARE PROVIDER if you experience any of the following: Worsening of symptoms Fever, chills, or fatigue Difficulty following your treatment plan, or difficulty taking medications CALL 911 OR GO TO THE EMERGENCY DEPARTMENT if you experience any of the following: Sudden, severe abdominal pain or nausea/vomiting Severe chest pain, or chest pain that radiates (moves) to your jaw or arm Sudden, severe shortness of breath or difficulty breathing Thank you for allowing us to participate in your care. Pending Studies at Discharge: No Stand-Alone Forms: My [facility], Smoking Cessation Medications and DC Order Prescriptions: New cyanocobalamin (vitamin B-12) 1,000 mcg capsule 1,000 mcg PO DAILY Qty: 30 3RF pantoprazole 40 mg Tablet,Delayed Release (Dr/Ec) 40 mg PO BID Qty: 90 0RF Rx Instructions: take twice daily for 4 weeks, then once daily for 8 weeks Continued amoxicillin 500 mg tablet 2,000 mg PO ONCE Qty: 4 3RF Rx Instructions: Take 1 hour prior to dental procedure chlorthalidone 25 mg tablet 25 mg PO QAM Qty: 90 3RF metformin 500 mg tablet extended release 24hr 1,000 mg PO BID Qty: 360 3RF amlodipine 10 mg tablet 10 mg PO QPM Qty: 90 3RF atorvastatin 80 mg tablet 80 mg PO QPM Qty: 90 3RF losartan 25 mg tablet 25 mg PO QPM Qty: 90 3RF (DME) pen needle, diabetic [Easy Comfort Pen [place]] 31 gauge x 1/4" needle See Rx Instructions .Route Qty: 100 3RF Rx Instructions: As directed nystatin 100,000 unit/gram powder 1 applic topical TID PRN (Reason: Rash) nystatin-triamcinolone 100,000-0.1 unit/g-% cream 1 applic topical BID PRN (Reason: Rash) labetalol 100 mg tablet 100 mg PO BID Qty: 180 1RF citalopram 10 mg tablet 10 mg PO QAM insulin glargine [Lantus Solostar U-100 Insulin] 100 unit/mL (3 mL) insulin pen 20 unit subcut QPM Qty: 20 3RF lorazepam 0.5 mg tablet 0.5 mg PO DAILY PRN (Reason: Anxiety) Qty: 30 0RF levothyroxine 125 mcg tablet 125 mcg PO QAM Discharge Orders: Discharge Order (Routine); Ordered 08/27/23 Ordered By: Nury Finch/Other Patient Handouts: Vitamin and Mineral Supplements Admission Data Admit Date/Time: 08/25/23 13:40 Attending Provider: Diaz Johnson Admit Provider: Henrry Finn Primary Care Provider: Nereida Luo Other Providers: Henrry Finn; Ryan Motta; Jason Herron Other Interventions: Discharge Summary Assessment (RN) Last Done: 08/27/23 13:03 Supervising Physician Co-Signing Physician Notes I personally examined the patient and verified all schofield points of history and exam, discussed case, and agree with decision making with Dr Vaughan feels good and feels up to going home. Ate well. Not weak or dizzy anymore. Answered all questions the best my ability. present at the bedside answer his questions as well. Orthopedics came and removed timothy from right knee incision while I was in the room as well. Vitals noted, nad heent nc at mmm breathing unlabored no accessory muscles good effort skin no rashes no pallor or icterus PUD w upper GI bleeding and subsequent acute blood loss anemia - now stable on PPI and s/p 2units transfusion - stable. PO PPI. stable for home, outpatient follow-up, outpatient labs, avoid NSAIDs. PCP and GI in the near future. B12 deficiencyreceived IM supplementation while here in the hospital, will have follow-up supplementation p.o. with a repeat B12 level in the outpatient setting to follow for improvement in levels. otherwise as above Resident Activity Tracking Resident Involvement: Resident Care Provided Care Provided: Adult Hospital Medicine
--- NOTE | 2023-08-27 14:24 | Billing Data ---
Date of Service August 27, 2023 Coding Level of Care Code 36717 IN/OBS DISCH 30 MIN/LESS
--- NOTE | 2023-08-27 21:53 | Electrocardiogram Report ---
Test Reason : Blood Pressure : / mmHG Vent. Rate : 094 BPM Atrial Rate : 094 BPM P-R Int : 228 ms QRS Dur : 160 ms QT Int : 402 ms P-R-T Axes : 017 -63 090 degrees QTc Int : 502 ms Atrial-sensed ventricular-paced rhythm with prolonged AV conduction Abnormal ECG When compared with ECG of 24-SEP-2022 09:47, Vent. rate has increased BY 34 BPM Confirmed by Elie Eli ([id number]) on 08/27/2023 9:53:23 PM Referred By: Confirmed By:Elie Eli
== END 2023-08-27 13:34 | disposition home or self-care (01) | DRG 378 ==
LOC: ED 11:27 → SUATTDRO 13:40 → EDINP 13:40 → 2N 15:07